=== PATIENT | female | born 1950 | race Two or more races ===

== ENCOUNTER 2020-04-26 13:00 | Emergency (ER) | payer BC, MEDICARE, OTHER ==
[~2020-04-26] VITALS: Ht 162.6 cm; Wt 90.7 kg
[2020-04-26 13:21] VITALS: BP 158/87
[2020-04-26 14:11] LABS: Basophils # (auto) 0.1 10 ^3/uL (0-0.2); Basophils % (auto) 0.9 % (0.0-2.0); Eosinophils # (auto) 0.1 10 ^3/uL (0-0.8); Eosinophils % (auto) 1.1 % (0.0-7.0); Hematocrit 44.9 % (36.0-46.0); Hemoglobin 14.9 g/dL (12.2-16.2); Lymphocytes # (auto) 2.3 10 ^3/uL (0.4-5.4); Lymphocytes % (auto) 23.6 % (10.0-50.0); Mean Corpuscular Hemoglobin 27.5 pg (28.0-32.0); Mean Corpuscular Hgb Conc. 33.1 g/dL (32.0-36.0); Monocytes % (auto) 9.8 % (0.0-12.0); Neutrophils # (auto) 6.4 10 ^3/uL (1.6-8.6); Neutrophils % (auto) 64.6 % (37.0-80.0); Nucleated Red Blood Cells % 0.1 %; Red Blood Cells 5.41 10^6/uL (4.0-5.20); White Blood Cell 9.9 10^3/uL (4.4-10.8)
[2020-04-26 14:28] LABS: Anion Gap 6 (5-15); Blood Urea Nitrogen 24 mg/dL (7-18); Calcium 9.7 mg/dL (8.5-10.1); Carbon Dioxide 30 mmol/L (21-32); Chloride 103 mmol/L (98-107); Glucose 128 mg/dL (74-106); Potassium 4.4 mmol/L (3.5-5.1); Sodium 139 mmol/L (136-145)
[2020-04-26 14:33] LABS: Alanine Aminotransferase 25 U/L (13-56); Alkaline Phosphatase 92 U/L (45-117); Aspartate Aminotransferase 19 U/L (15-37); BUN/Creatinine Ratio 21.8; Bilirubin, Total 0.6 mg/dL (0.2-1.0); GFR African American 63 mL/min; GFR Non-African American 52 mL/min; Total Protein 7.9 g/dL (6.4-8.2)
== END 2020-04-26 14:54 | disposition home or self-care (01) ==
LOC: ER 13:00
DX: R00.0 Tachycardia, unspecified (principal); R42 Dizziness and giddiness; E11.9 Type 2 diabetes mellitus without complications; E78.5 Hyperlipidemia, unspecified; I10 Essential (primary) hypertension; Z90.710 Acquired absence of both cervix and uterus
CPT/HCPCS: 36415; 71046; 80053; 84484; 85025; 93005

== ENCOUNTER 2021-04-07 23:39 | Emergency (ER) | payer OTHER ==
[~2021-04-07] VITALS: Ht 162.6 cm; Wt 89.8 kg
[2021-04-08] MEDS ORDERED: dilTIAZem 25 MG/5 ML VIAL IV ONE (00:45)
[2021-04-08 00:51] LABS: Urine Bacteria FEW /hpf (None Seen); Urine Blood Negative /uL (Negative); Urine Specific Gravity 1.012 (1.001-1.035); Urine WBC 19 /hpf (0 - 5)
[2021-04-08 00:51] LABS: Basophils # (auto) 0.1 10 ^3/uL (0-0.2); Basophils % (auto) 1.2 % (0.0-2.0); Eosinophils # (auto) 0.1 10 ^3/uL (0-0.8); Eosinophils % (auto) 1.4 % (0.0-7.0); Hematocrit 44.6 % (36.0-46.0); Hemoglobin 14.4 g/dL (12.2-16.2); Lymphocytes # (auto) 2.6 10 ^3/uL (0.4-5.4); Lymphocytes % (auto) 26.1 % (10.0-50.0); Mean Corpuscular Hgb Conc. 32.2 g/dL (32.0-36.0); Mean Corpuscular Volume 83.9 fL (80.0-100.0); Monocytes # (auto) 1.1 10 ^3/uL (0-1.3); Monocytes % (auto) 10.7 % (0.0-12.0); Neutrophils % (auto) 60.6 % (37.0-80.0); Red Blood Cells 5.32 10^6/uL (4.0-5.20); Red Cell Distribution Width 16.2 % (11.8-14.3); White Blood Cell 9.9 10^3/uL (4.4-10.8)
[2021-04-08 01:00] LABS: Albumin 3.9 g/dL (3.4-5.0); Calcium 9.4 mg/dL (8.5-10.1); Potassium 4.8 mmol/L (3.5-5.1)
[2021-04-08 01:02] LABS: BUN/Creatinine Ratio 19.6
[2021-04-08 02:00] VITALS: BP 109/59
[2021-04-08 02:51] LABS: Total Protein 7.5 g/dL (6.4-8.2)
[2021-04-08 02:55] LABS: Bilirubin, Total 0.6 mg/dL (0.2-1.0)
== END 2021-04-08 03:06 | disposition home or self-care (01) ==
LOC: ER 04-08 00:04
DX: I48.0 Paroxysmal atrial fibrillation (principal); R00.2 Palpitations; I10 Essential (primary) hypertension; E11.9 Type 2 diabetes mellitus without complications; E78.5 Hyperlipidemia, unspecified; Z90.710 Acquired absence of both cervix and uterus
CPT/HCPCS: 36415; 71045; 80053; 81001; 83880; 84484; 85025; 93005; 96374

== ENCOUNTER 2021-04-18 09:16 | Emergency (ER) | payer OTHER ==
[~2021-04-18] VITALS: Ht 162.6 cm; Wt 88.5 kg
[2021-04-18 10:13] LABS: Basophils # (auto) 0 10 ^3/uL (0-0.2); Basophils % (auto) 0.2 % (0.0-2.0); Eosinophils # (auto) 0.1 10 ^3/uL (0-0.8); Eosinophils % (auto) 1.3 % (0.0-7.0); Hemoglobin 13.4 g/dL (12.2-16.2); Lymphocytes # (auto) 2.1 10 ^3/uL (0.4-5.4); Lymphocytes % (auto) 27.6 % (10.0-50.0); Mean Corpuscular Hemoglobin 27.3 pg (28.0-32.0); Mean Corpuscular Hgb Conc. 32.6 g/dL (32.0-36.0); Mean Corpuscular Volume 83.6 fL (80.0-100.0); Monocytes # (auto) 0.9 10 ^3/uL (0-1.3); Neutrophils # (auto) 4.7 10 ^3/uL (1.6-8.6); Neutrophils % (auto) 59.9 % (37.0-80.0); Red Blood Cells 4.91 10^6/uL (4.0-5.20); Red Cell Distribution Width 15.9 % (11.8-14.3); White Blood Cell 7.8 10^3/uL (4.4-10.8)
[2021-04-18 11:32] LABS: Urine Bacteria NONE SEEN /hpf (None Seen); Urine Blood Negative /uL (Negative); Urine WBC 14 /hpf (0 - 5)
[2021-04-18] MEDS ORDERED: NITR-87 PO (12:00)
[2021-04-18 12:08] LABS: Albumin 3.5 g/dL (3.4-5.0); BUN/Creatinine Ratio 17.5; Calcium 9.1 mg/dL (8.5-10.1)
[2021-04-18 12:28] LABS: Bilirubin, Total 0.6 mg/dL (0.2-1.0); Total Protein 6.8 g/dL (6.4-8.2)
[2021-04-18 12:56] VITALS: BP 110/57
== END 2021-04-18 12:53 | disposition home or self-care (01) ==
LOC: ER 09:16
DX: R00.2 Palpitations (principal); N39.0 Urinary tract infection, site not specified; I10 Essential (primary) hypertension; E11.9 Type 2 diabetes mellitus without complications; E78.5 Hyperlipidemia, unspecified; Z90.710 Acquired absence of both cervix and uterus; Z79.899 Other long term (current) drug therapy
CPT/HCPCS: 36415; 80053; 81001; 84484; 85025; 93005

== ENCOUNTER 2021-07-02 18:17 | Inpatient (IN) | payer OTHER ==
[~2021-07-02] VITALS: Ht 162.6 cm; Wt 90.5 kg
[~2021-07-02 18:17] MED LIST: NITR-87 PO
[2021-07-02] MEDS: METOPROLOL TARTRATE 1MG/1ML-5ML VIAL IV SCH ×3 (19:15→19:25)
[2021-07-02 20:07] LABS: Basophils # (auto) 0.1 10 ^3/uL (0-0.2); Eosinophils # (auto) 0.1 10 ^3/uL (0-0.8); Eosinophils % (auto) 1.2 % (0.0-7.0); Hematocrit 40.5 % (36.0-46.0); Hemoglobin 13.4 g/dL (12.2-16.2); Lymphocytes # (auto) 2.2 10 ^3/uL (0.4-5.4); Lymphocytes % (auto) 18.9 % (10.0-50.0); Mean Corpuscular Volume 81.8 fL (80.0-100.0); Monocytes # (auto) 1.2 10 ^3/uL (0-1.3); Monocytes % (auto) 10.4 % (0.0-12.0); Neutrophils # (auto) 8.1 10 ^3/uL (1.6-8.6); Neutrophils % (auto) 68.5 % (37.0-80.0); Nucleated Red Blood Cells % 0.1 %; Red Blood Cells 4.95 10^6/uL (4.0-5.20); Red Cell Distribution Width 15.6 % (11.8-14.3); White Blood Cell 11.8 10^3/uL (4.4-10.8)
[2021-07-02 20:24] LABS: INR 1.02 (0.9-1.15)
[2021-07-02 20:39] LABS: Albumin 3.6 g/dL (3.4-5.0); Calcium 9.6 mg/dL (8.5-10.1); Magnesium 2.7 mg/dL (1.6-2.6); Potassium 4.8 mmol/L (3.5-5.1)
[2021-07-02 20:44] LABS: BUN/Creatinine Ratio 22.2; Bilirubin, Total 0.7 mg/dL (0.2-1.0); Total Protein 7.1 g/dL (6.4-8.2)
[2021-07-02] MEDS ORDERED: DOCUSATE SOD 100 MG CAP PO PRN (22:00)
[2021-07-02] MEDS ORDERED: cefTRIAXone 1GM/50ML D5W 50 ML IV ONE (22:00)
[2021-07-02] MEDS ORDERED: dilTIAZem 25 MG/5 ML VIAL IV ONE (22:00)
[2021-07-02] MEDS ORDERED: ACETAMINOPHEN 325 MG TAB PO PRN (22:00)
[2021-07-02] MEDS ORDERED: DEXTROSE (50%) 50ML SYRG IV PRN (22:00)
[2021-07-02] MEDS: SODIUM CHLOR 0.9% PF (SALINE LOCK) 10ML VIAL/SYR IV SCH (22:00)
[2021-07-02] MEDS: InsuLIN REG 1unit/0.01ml Soln (100units/ml) SC SCH (22:00)
[2021-07-02] MEDS ORDERED: HYDROcodone-ACET 5/325MG TAB PO PRN (22:00)
[2021-07-02] MEDS: ACCU-CHEK COMFORT CURVE STRIP VI SCH (22:00)
[2021-07-02] MEDS ORDERED: ONDANSETRON HCL 4 MG/2 ML VIAL IV PRN (22:00)
[2021-07-02] MEDS: HEPARIN SODIUM (PORCINE) 5000 UNITS/ML 1ML VIAL SC SCH (22:00)
[2021-07-02] MEDS ORDERED: NITROGLYCERIN 0.4 MG SL TAB SL PRN (22:45)
[2021-07-02] MEDS ORDERED: MORPHINE SULFATE INJECTION 2 MG/ML SYRG IV PRN (22:45)
[2021-07-03 02:35] VITALS: BP 130/56
[2021-07-03 05:19] LABS: Basophils # (auto) 0.1 10 ^3/uL (0-0.2); Basophils % (auto) 0.7 % (0.0-2.0); Eosinophils # (auto) 0.1 10 ^3/uL (0-0.8); Eosinophils % (auto) 1.2 % (0.0-7.0); Hemoglobin 12.7 g/dL (12.2-16.2); Lymphocytes # (auto) 2.5 10 ^3/uL (0.4-5.4); Lymphocytes % (auto) 27.3 % (10.0-50.0); Mean Corpuscular Hemoglobin 27.2 pg (28.0-32.0); Mean Corpuscular Hgb Conc. 33.4 g/dL (32.0-36.0); Mean Corpuscular Volume 81.5 fL (80.0-100.0); Monocytes % (auto) 10.7 % (0.0-12.0); Neutrophils # (auto) 5.4 10 ^3/uL (1.6-8.6); Neutrophils % (auto) 60.1 % (37.0-80.0); Nucleated Red Blood Cells % 0.1 %; Red Blood Cells 4.66 10^6/uL (4.0-5.20); Red Cell Distribution Width 15.6 % (11.8-14.3); White Blood Cell 9.1 10^3/uL (4.4-10.8)
[2021-07-03 05:36] LABS: Albumin 3.4 g/dL (3.4-5.0); BUN/Creatinine Ratio 19.3; Potassium 5.1 mmol/L (3.5-5.1)
[2021-07-03 05:39] LABS: Bilirubin, Total 0.6 mg/dL (0.2-1.0); Total Protein 6.6 g/dL (6.4-8.2)
[2021-07-03] MEDS: SODIUM CHLOR 0.9% PF (SALINE LOCK) 10ML VIAL/SYR IV SCH ×3 (06:29→21:37)
[2021-07-03] MEDS: ACCU-CHEK COMFORT CURVE STRIP VI SCH ×4 (06:29→21:39)
[2021-07-03] MEDS: InsuLIN REG 1unit/0.01ml Soln (100units/ml) SC SCH ×4 (06:30→21:52)
[2021-07-03 08:20] VITALS: BP 140/77
[2021-07-03] MEDS ORDERED: ASPirin 81 mg TAB PO SCH (10:00)
[2021-07-03] MEDS: HEPARIN SODIUM (PORCINE) 5000 UNITS/ML 1ML VIAL SC SCH (10:05)
[2021-07-03] MEDS ORDERED: METF-370 PO (11:00)
[2021-07-03] MEDS ORDERED: CARV25TA55 PO (11:00)
[2021-07-03] MEDS ORDERED: ATOR40TA52 PO (11:00)
[2021-07-03] MEDS ORDERED: GABA100C9 PO (11:00)
[2021-07-03] MEDS ORDERED: EMPA1TAB PO (11:00)
[2021-07-03] MEDS ORDERED: DRON400T PO (11:00)
[2021-07-03] MEDS ORDERED: APIX5TAB PO (11:00)
[2021-07-03] MEDS ORDERED: INSLISPI SC (11:16)
[2021-07-03] MEDS ORDERED: DULA0.5I SC (11:16)
[2021-07-03] MEDS ORDERED: AMLO5CAP40 PO (11:16)
[2021-07-03] MEDS ORDERED: LEVEMIR SC (11:16)
[2021-07-03] MEDS ORDERED: MAGN400T40 PO (11:16)
[2021-07-03] MEDS ORDERED: DIGO0.12 PO (11:16)
[2021-07-03 13:29] VITALS: BP 131/62
[2021-07-03 16:27] VITALS: BP 144/59
[2021-07-03 20:00] VITALS: BP 140/73
[2021-07-03] MEDS: APIXABAN 5 MG TAB PO SCH (21:38)
[2021-07-03] MEDS: CARVEDILOL 12.5 MG TAB PO SCH (21:38)
[2021-07-03] MEDS: DRONEDARONE HCL 400 MG TAB PO SCH (21:52)
[2021-07-03 22:00] VITALS: BP 140/75
[2021-07-03] MEDS ORDERED: INSULIN LANTUS (GLARGINE) 1 /0.01ml (100units/ml) SC SCH (22:00)
[2021-07-03] MEDS ORDERED: ATORVASTATIN 20 MG TAB PO SCH (22:00)
[2021-07-04 05:00] VITALS: BP 139/72
[2021-07-04] MEDS: SODIUM CHLOR 0.9% PF (SALINE LOCK) 10ML VIAL/SYR IV SCH ×2 (06:28→14:00)
[2021-07-04] MEDS: ACCU-CHEK COMFORT CURVE STRIP VI SCH ×3 (06:32→17:47)
[2021-07-04] MEDS: InsuLIN REG 1unit/0.01ml Soln (100units/ml) SC SCH ×3 (06:44→17:00)
[2021-07-04 07:23] LABS: BUN/Creatinine Ratio 16.5; Calcium 9.1 mg/dL (8.5-10.1); Magnesium 2.3 mg/dL (1.6-2.6); Potassium 4.5 mmol/L (3.5-5.1)
[2021-07-04] MEDS ORDERED: metFORMIN HYDROCHLORIDE 500 MG TAB PO SCH (08:00)
[2021-07-04 08:49] VITALS: BP 140/67
[2021-07-04] MEDS: APIXABAN 5 MG TAB PO SCH (09:39)
[2021-07-04] MEDS: CARVEDILOL 12.5 MG TAB PO SCH (09:39)
[2021-07-04] MEDS: DRONEDARONE HCL 400 MG TAB PO SCH (09:43)
[2021-07-04] MEDS ORDERED: dilTIAZem 120MG ER CAP PO SCH (10:00)
[2021-07-04] MEDS ORDERED: BENAZEPRIL HCL 10 MG TAB PO SCH (10:00)
[2021-07-04] MEDS ORDERED: amLODIPine BESYLATE 5 MG TAB PO SCH (10:00)
[2021-07-04] MEDS ORDERED: DIGOXIN 0.125 MG TAB PO SCH (10:00)
[2021-07-04] MEDS ORDERED: PATIENTS OWN MEDICATION PO SCH (10:00)
[2021-07-04 13:00] VITALS: BP 129/58
== END 2021-07-04 18:10 | disposition home or self-care (01) | DRG 310 ==
LOC: ER 18:17 → TELE 22:44 → TELE-WESTW 23:52
PROVIDERS: ADMIT Nurse Practitioner Family; ATTEND Internal Medicine
DX: I48.91 Unspecified atrial fibrillation (principal); I47.1 Supraventricular tachycardia; D72.829 Elevated white blood cell count, unspecified; E11.65 Type 2 diabetes mellitus with hyperglycemia; E78.5 Hyperlipidemia, unspecified; I11.9 Hypertensive heart disease without heart failure; E83.41 Hypermagnesemia; N28.9 Disorder of kidney and ureter, unspecified; Z79.01 Long term (current) use of anticoagulants; Z79.4 Long term (current) use of insulin; Z79.899 Other long term (current) drug therapy; Z80.0 Family history of malignant neoplasm of digestive organs; Z85.038 Personal history of other malignant neoplasm of large intestine; Z90.710 Acquired absence of both cervix and uterus; Z83.3 Family history of diabetes mellitus; Z20.822 Contact with and (suspected) exposure to COVID-19; Z79.84 Long term (current) use of oral hypoglycemic drugs
CPT/HCPCS: 36415; 71045; 80048; 80053; 82962; 83036; 83735; 83880; 84439; 84443; 84484; 85025; 85610; 93005; 93306; 96372; G0378; J1815

== ENCOUNTER 2021-11-16 21:20 | Emergency (ER) | payer OTHER ==
[~2021-11-16] VITALS: Ht 162.6 cm; Wt 82.3 kg
[~2021-11-16 21:20] MED LIST changes: +AMLO5CAP40 PO; +APIX5TAB PO; +ATOR40TA52 PO; +CARV25TA55 PO; +DIGO0.12 PO; +DRON400T PO; +DULA0.5I SC; +EMPA1TAB PO; +GABA100C9 PO; +INSLISPI SC; +LEVEMIR SC; +MAGN400T40 PO; +METF-370 PO
[2021-11-16 22:37] LABS: Basophils # (auto) 0.1 10 ^3/uL (0-0.2); Basophils % (auto) 0.5 % (0.0-2.0); Eosinophils # (auto) 0.1 10 ^3/uL (0-0.8); Eosinophils % (auto) 0.8 % (0.0-7.0); Hematocrit 42.1 % (36.0-46.0); Hemoglobin 13.5 g/dL (12.2-16.2); Lymphocytes # (auto) 2.1 10 ^3/uL (0.4-5.4); Lymphocytes % (auto) 16.4 % (10.0-50.0); Mean Corpuscular Hemoglobin 26.4 pg (28.0-32.0); Mean Corpuscular Volume 82.5 fL (80.0-100.0); Monocytes # (auto) 1.3 10 ^3/uL (0-1.3); Monocytes % (auto) 10.4 % (0.0-12.0); Neutrophils % (auto) 71.9 % (37.0-80.0); Red Blood Cells 5.11 10^6/uL (4.0-5.20); Red Cell Distribution Width 17.2 % (11.8-14.3); White Blood Cell 12.5 10^3/uL (4.4-10.8)
[2021-11-16 22:53] LABS: Albumin 3.5 g/dL (3.4-5.0); Calcium 8.8 mg/dL (8.5-10.1); Potassium 4.9 mmol/L (3.5-5.1)
[2021-11-16 22:57] LABS: BUN/Creatinine Ratio 19.3; Bilirubin, Total 0.8 mg/dL (0.2-1.0); Total Protein 6.9 g/dL (6.4-8.2)
[2021-11-17 02:00] VITALS: BP 130/61
== END 2021-11-17 03:20 | disposition home or self-care (01) ==
LOC: ER 21:20
DX: I48.0 Paroxysmal atrial fibrillation (principal); I10 Essential (primary) hypertension; E11.9 Type 2 diabetes mellitus without complications; E78.5 Hyperlipidemia, unspecified; Z90.710 Acquired absence of both cervix and uterus; Z79.4 Long term (current) use of insulin; Z79.899 Other long term (current) drug therapy; Z20.822 Contact with and (suspected) exposure to COVID-19
CPT/HCPCS: 36415; 71045; 80053; 82962; 83880; 84484; 85025; 93005

== ENCOUNTER 2022-02-25 22:40 | Inpatient (IN) | payer OTHER ==
[~2022-02-25] VITALS: Ht 162.6 cm; Wt 84.6 kg
[2022-02-25] MEDS ORDERED: SODIUM CHLORIDE 0.9% 1,000 ML IV ONE (23:15)
[2022-02-26 01:38] LABS: Basophils # (auto) 0.1 10 ^3/uL (0-0.2); Basophils % (auto) 0.6 % (0.0-2.0); Eosinophils # (auto) 0.1 10 ^3/uL (0-0.8); Eosinophils % (auto) 0.5 % (0.0-7.0); Hematocrit 39.2 % (36.0-46.0); Hemoglobin 13.2 g/dL (12.2-16.2); Lymphocytes # (auto) 1.7 10 ^3/uL (0.4-5.4); Lymphocytes % (auto) 15.2 % (10.0-50.0); Mean Corpuscular Hemoglobin 27.2 pg (28.0-32.0); Mean Corpuscular Hgb Conc. 33.5 g/dL (32.0-36.0); Mean Corpuscular Volume 81.2 fL (80.0-100.0); Monocytes # (auto) 1.4 10 ^3/uL (0-1.3); Monocytes % (auto) 13.1 % (0.0-12.0); Neutrophils # (auto) 7.8 10 ^3/uL (1.6-8.6); Neutrophils % (auto) 70.6 % (37.0-80.0); Nucleated Red Blood Cells % 0.1 %; Red Blood Cells 4.84 10^6/uL (4.0-5.20); Red Cell Distribution Width 16.3 % (11.8-14.3)
[2022-02-26 01:48] LABS: Albumin 3.5 g/dL (3.4-5.0); BUN/Creatinine Ratio 25.3; Calcium 9.1 mg/dL (8.5-10.1); Magnesium 2.5 mg/dL (1.6-2.6); Potassium 4.5 mmol/L (3.5-5.1)
[2022-02-26 01:51] LABS: Bilirubin, Total 0.6 mg/dL (0.2-1.0); Total Protein 6.5 g/dL (6.4-8.2)
[2022-02-26 02:24] LABS: INR 0.97 (0.9-1.15); Partial Thromboplastin Time 26.9 sec (24.6-33.4)
[2022-02-26 03:26] LABS: Urine Bacteria NONE SEEN /hpf (None Seen); Urine Blood Negative /uL (Negative); Urine Hyaline Cast FEW /lpf (0 - 2); Urine Specific Gravity 1.029 (1.001-1.035); Urine WBC 14 /hpf (0 - 5)
[2022-02-26] MEDS ORDERED: ENOXAPARIN SOD 80 MG/0.8ML SYRINGE SC ONE (04:45)
[2022-02-26] MEDS ORDERED: cefTRIAXone 1GM/50ML D5W 50 ML IV ONE (04:45)
[2022-02-26] MEDS ORDERED: MAGNESIUM SULFATE 1GM/100ML 100 ML IV ONE (04:45)
[2022-02-26] MEDS ORDERED: LACTATED RINGER'S 1,000 ML IV ONE (04:45)
[2022-02-26] MEDS ORDERED: LORazepam 0.5 MG TAB PO PRN (05:00)
[2022-02-26] MEDS ORDERED: ZOLPIDEM TARTRATE 5 MG TAB PO PRN (05:00)
[2022-02-26] MEDS ORDERED: NITROGLYCERIN 0.4 MG SL TAB SL PRN (05:00)
[2022-02-26] MEDS ORDERED: MAALOX PLUS or MAALOX 30 ML PO ONE (05:00)
[2022-02-26] MEDS ORDERED: ACETAMINOPHEN 325 MG TAB PO PRN (05:00)
[2022-02-26] MEDS ORDERED: MORPHINE SULFATE 4 MG/ML SYR/VIAL IV PRN (05:00)
[2022-02-26 05:09] LABS: Basophils # (auto) 0 10 ^3/uL (0-0.2); Basophils % (auto) 0.3 % (0.0-2.0); Eosinophils # (auto) 0 10 ^3/uL (0-0.8); Eosinophils % (auto) 0.4 % (0.0-7.0); Hematocrit 38.9 % (36.0-46.0); Hemoglobin 12.9 g/dL (12.2-16.2); Mean Corpuscular Hemoglobin 27.2 pg (28.0-32.0); Mean Corpuscular Hgb Conc. 33.3 g/dL (32.0-36.0); Mean Corpuscular Volume 81.7 fL (80.0-100.0); Monocytes # (auto) 1.3 10 ^3/uL (0-1.3); Monocytes % (auto) 12.7 % (0.0-12.0); Neutrophils # (auto) 6.9 10 ^3/uL (1.6-8.6); Neutrophils % (auto) 67.6 % (37.0-80.0); Red Blood Cells 4.76 10^6/uL (4.0-5.20); Red Cell Distribution Width 16.6 % (11.8-14.3); White Blood Cell 10.3 10^3/uL (4.4-10.8)
[2022-02-26] MEDS ORDERED: DEXTROSE (50%) 50ML SYRG IV PRN (05:15)
[2022-02-26 05:30] LABS: BUN/Creatinine Ratio 27.7; Calcium 8.9 mg/dL (8.5-10.1)
[2022-02-26] MEDS: ACCU-CHEK COMFORT CURVE STRIP VI SCH ×4 (06:48→22:13)
[2022-02-26] MEDS: InsuLIN REG 1unit/0.01ml Soln (100units/ml) SC SCH ×4 (06:49→22:13)
[2022-02-26] MEDS ORDERED: FUROSEMIDE 40 MG/4 ML VIAL IV SCH (10:00)
[2022-02-26] MEDS: LISINOPRIL 5 MG TAB PO SCH (10:00)
[2022-02-26] MEDS ORDERED: ENOXAPARIN SOD 80 MG/0.8ML SYRINGE SC SCH (10:00)
[2022-02-26] MEDS: METOPROLOL TARTRATE 25 MG TAB PO SCH ×2 (10:00→22:12)
[2022-02-26] MEDS: ASPirin 81 mg TAB PO SCH (10:09)
[2022-02-26] MEDS: CLOPIDOGREL BISULFATE 75 MG TAB PO SCH (10:10)
[2022-02-26] MEDS: DOCUSATE SOD 100 MG CAP PO SCH (10:11)
[2022-02-26] MEDS: FUROSEMIDE 20 MG/2 ML VIAL IV SCH (10:11)
[2022-02-26] MEDS: cefTRIAXone 1GM/50ML D5W 50 ML IV SCH (10:12)
[2022-02-26] MEDS: GABAPENTIN 100 MG CAP PO SCH ×2 (14:19→22:10)
[2022-02-26] MEDS ORDERED: APIXABAN 5 MG TAB PO SCH (22:00)
[2022-02-26] MEDS ORDERED: ATORVASTATIN 20 MG TAB PO SCH (22:00)
[2022-02-26] MEDS: CARVEDILOL 12.5 MG TAB PO SCH (22:10)
[2022-02-26] MEDS: ENOXAPARIN SOD 80 MG/0.8ML SYRINGE SC SCH (22:12)
[2022-02-27 06:25] LABS: Eosinophils # (auto) 0.1 10 ^3/uL (0-0.8); Lymphocytes # (auto) 2.3 10 ^3/uL (0.4-5.4); Monocytes # (auto) 1.1 10 ^3/uL (0-1.3); Neutrophils # (auto) 4.7 10 ^3/uL (1.6-8.6)
[2022-02-27] MEDS: GABAPENTIN 100 MG CAP PO SCH ×3 (06:25→22:41)
[2022-02-27] MEDS: InsuLIN REG 1unit/0.01ml Soln (100units/ml) SC SCH ×4 (06:26→22:42)
[2022-02-27] MEDS: ACCU-CHEK COMFORT CURVE STRIP VI SCH ×4 (06:26→22:40)
[2022-02-27 06:28] LABS: Calcium 8.9 mg/dL (8.5-10.1); Potassium 4.9 mmol/L (3.5-5.1)
[2022-02-27 06:29] LABS: Basophils # (auto) 0.1 10 ^3/uL (0-0.2); Basophils % (auto) 0.6 % (0.0-2.0); Eosinophils % (auto) 1.1 % (0.0-7.0); Hematocrit 39.7 % (36.0-46.0); Hemoglobin 13.5 g/dL (12.2-16.2); Lymphocytes % (auto) 27.9 % (10.0-50.0); Mean Corpuscular Hemoglobin 27.7 pg (28.0-32.0); Mean Corpuscular Volume 81.4 fL (80.0-100.0); Monocytes % (auto) 13.8 % (0.0-12.0); Neutrophils % (auto) 56.6 % (37.0-80.0); Red Blood Cells 4.88 10^6/uL (4.0-5.20); Red Cell Distribution Width 16.2 % (11.8-14.3); White Blood Cell 8.2 10^3/uL (4.4-10.8)
[2022-02-27 06:34] LABS: Albumin 3.3 g/dL (3.4-5.0); BUN/Creatinine Ratio 25.3; Bilirubin, Total 0.6 mg/dL (0.2-1.0); Total Protein 6.1 g/dL (6.4-8.2)
[2022-02-27] MEDS: CARVEDILOL 12.5 MG TAB PO SCH ×2 (09:00→22:00)
[2022-02-27] MEDS: DIGOXIN 0.125 MG TAB PO SCH (09:01)
[2022-02-27] MEDS: METOPROLOL TARTRATE 25 MG TAB PO SCH (09:01)
[2022-02-27] MEDS: EMPAGLIFLOZIN 10 MG TAB PO SCH (09:02)
[2022-02-27] MEDS: ATORVASTATIN 20 MG TAB PO SCH (09:16)
[2022-02-27] MEDS: ASPirin 81 mg TAB PO SCH (09:16)
[2022-02-27] MEDS: cefTRIAXone 1GM/50ML D5W 50 ML IV SCH (09:16)
[2022-02-27] MEDS: MAGNESIUM OXIDE 400 MG TAB PO SCH (09:16)
[2022-02-27] MEDS: DOCUSATE SOD 100 MG CAP PO SCH (09:16)
[2022-02-27] MEDS: FUROSEMIDE 20 MG/2 ML VIAL IV SCH (09:16)
[2022-02-27] MEDS: LISINOPRIL 5 MG TAB PO SCH (09:17)
[2022-02-27] MEDS: CLOPIDOGREL BISULFATE 75 MG TAB PO SCH (09:17)
[2022-02-27] MEDS: ENOXAPARIN SOD 80 MG/0.8ML SYRINGE SC SCH ×2 (09:17→22:42)
[2022-02-27] MEDS: INSULIN LANTUS (GLARGINE) 1 /0.01ml (100units/ml) SC SCH (10:10)
[2022-02-27 14:39] VITALS: BP 132/78
[2022-02-27 17:00] VITALS: BP 122/73
[2022-02-27 20:00] VITALS: BP 108/63
[2022-02-27 22:00] VITALS: BP 108/63
[2022-02-28 05:00] VITALS: BP 127/64
[2022-02-28] MEDS: ACCU-CHEK COMFORT CURVE STRIP VI SCH ×2 (06:15→11:30)
[2022-02-28] MEDS: GABAPENTIN 100 MG CAP PO SCH ×2 (06:15→13:46)
[2022-02-28] MEDS: InsuLIN REG 1unit/0.01ml Soln (100units/ml) SC SCH ×2 (06:15→11:30)
[2022-02-28 08:00] VITALS: BP 108/63
[2022-02-28] MEDS: DOCUSATE SOD 100 MG CAP PO SCH (08:45)
[2022-02-28] MEDS: ENOXAPARIN SOD 80 MG/0.8ML SYRINGE SC SCH (08:45)
[2022-02-28] MEDS: cefTRIAXone 1GM/50ML D5W 50 ML IV SCH (08:45)
[2022-02-28] MEDS: ASPirin 81 mg TAB PO SCH (08:45)
[2022-02-28] MEDS: ATORVASTATIN 20 MG TAB PO SCH (08:46)
[2022-02-28] MEDS: EMPAGLIFLOZIN 10 MG TAB PO SCH (08:46)
[2022-02-28] MEDS: FUROSEMIDE 20 MG/2 ML VIAL IV SCH (08:47)
[2022-02-28] MEDS: LISINOPRIL 5 MG TAB PO SCH (08:50)
[2022-02-28] MEDS: CARVEDILOL 12.5 MG TAB PO SCH (08:51)
[2022-02-28] MEDS: MAGNESIUM OXIDE 400 MG TAB PO SCH (08:56)
[2022-02-28 09:00] VITALS: BP 124/70
[2022-02-28] MEDS: INSULIN LANTUS (GLARGINE) 1 /0.01ml (100units/ml) SC SCH (09:06)
[2022-02-28] MEDS: DIGOXIN 0.125 MG TAB PO SCH (10:00)
[2022-02-28] MEDS ORDERED: NITR-87 PO (10:13)
[2022-02-28 13:00] VITALS: BP 120/66
== END 2022-02-28 15:15 | disposition home or self-care (01) | DRG 689 ==
LOC: ER 22:41 → TELE 02-26 04:54 → TELE-EAST 02-27 13:20
PROVIDERS: ADMIT Hospitalist; ATTEND Nurse Practitioner Acute Care
DX: N30.90 Cystitis, unspecified without hematuria (principal); I21.A1 Myocardial infarction type 2; I13.0 Hypertensive heart and chronic kidney disease with heart failure and stage 1 through stage 4 chronic kidney disease, or unspecified chronic kidney disease; J98.11 Atelectasis; E11.22 Type 2 diabetes mellitus with diabetic chronic kidney disease; F17.200 Nicotine dependence, unspecified, uncomplicated; I25.10 Atherosclerotic heart disease of native coronary artery without angina pectoris; Z20.822 Contact with and (suspected) exposure to COVID-19; I48.0 Paroxysmal atrial fibrillation; J44.9 Chronic obstructive pulmonary disease, unspecified; E78.5 Hyperlipidemia, unspecified; E66.9 Obesity, unspecified; N18.9 Chronic kidney disease, unspecified; R56.9 Unspecified convulsions; Z79.01 Long term (current) use of anticoagulants; Z79.4 Long term (current) use of insulin; Z79.84 Long term (current) use of oral hypoglycemic drugs; Z90.710 Acquired absence of both cervix and uterus; Z85.07 Personal history of malignant neoplasm of pancreas; Z85.038 Personal history of other malignant neoplasm of large intestine; Z82.49 Family history of ischemic heart disease and other diseases of the circulatory system; Z83.3 Family history of diabetes mellitus; Z80.0 Family history of malignant neoplasm of digestive organs; Z79.899 Other long term (current) drug therapy; Z68.32 Body mass index [BMI] 32.0-32.9, adult
CPT/HCPCS: 36415; 70450; 71045; 80048; 80053; 81001; 82962; 83735; 83880; 84484; 85025; 85379; 85610; 85730; 87086; 87088; 87426; 93005; 93306; 95819; 96361; 96365; 96372; G0378; J0696; J1815

== ENCOUNTER 2022-04-25 10:55 | Inpatient (IN) | payer OTHER ==
[~2022-04-25] VITALS: Ht 162.6 cm; Wt 83.5 kg
[2022-04-25] MEDS ORDERED: ASPirin 81 mg TAB PO ONE (11:15)
[2022-04-25] MEDS ORDERED: dilTIAZem 25 MG/5 ML VIAL IV ONE (11:15)
[2022-04-25 11:34] LABS: Basophils # (auto) 0.1 10 ^3/uL (0-0.2); Basophils % (auto) 0.6 % (0.0-2.0); Eosinophils # (auto) 0.1 10 ^3/uL (0-0.8); Eosinophils % (auto) 0.7 % (0.0-7.0); Hematocrit 44.2 % (36.0-46.0); Hemoglobin 14.9 g/dL (12.2-16.2); Lymphocytes # (auto) 2.5 10 ^3/uL (0.4-5.4); Lymphocytes % (auto) 26.7 % (10.0-50.0); Mean Corpuscular Hemoglobin 27.6 pg (28.0-32.0); Mean Corpuscular Hgb Conc. 33.6 g/dL (32.0-36.0); Mean Corpuscular Volume 82.1 fL (80.0-100.0); Monocytes % (auto) 10.9 % (0.0-12.0); Neutrophils # (auto) 5.8 10 ^3/uL (1.6-8.6); Neutrophils % (auto) 61.1 % (37.0-80.0); Nucleated Red Blood Cells % 0.1 %; Red Blood Cells 5.39 10^6/uL (4.0-5.20); Red Cell Distribution Width 16.4 % (11.8-14.3); White Blood Cell 9.5 10^3/uL (4.4-10.8)
[2022-04-25 11:47] LABS: Calcium 9.6 mg/dL (8.5-10.1); Magnesium 2.3 mg/dL (1.6-2.6); Potassium 5.1 mmol/L (3.5-5.1)
[2022-04-25 11:50] LABS: BUN/Creatinine Ratio 24.4; Bilirubin, Total 0.5 mg/dL (0.2-1.0); Total Protein 6.8 g/dL (6.4-8.2)
[2022-04-25] MEDS ORDERED: LABETALOL HCL 5 MG/ML 4ML SYRINGE IV ONE (12:00)
[2022-04-25] MEDS ORDERED: NITROGLYCERIN 0.4 MG SL TAB SL PRN (15:30)
[2022-04-25] MEDS ORDERED: ACETAMINOPHEN 325 MG TAB PO PRN (15:30)
[2022-04-25] MEDS ORDERED: MORPHINE SULFATE INJ 2 MG/ml SYRG IV PRN (15:30)
[2022-04-25] MEDS ORDERED: PANTOPRAZOLE 40 MG/10 ML VIAL INJ IV ONE (15:45)
[2022-04-25] MEDS ORDERED: DEXTROSE (50%) 50ML SYRG IV PRN (15:45)
[2022-04-25 16:06] LABS: Cholesterol 151 mg/dL (< 200); HDL Cholesterol 47 mg/dL (40-59); LDL Cholesterol 98 mg/dL (< 100); Triglycerides 120 mg/dL (< 150)
[2022-04-25] MEDS: SODIUM CHLORIDE 0.9% 1,000 ML IV SCH (16:13)
[2022-04-25] MEDS: InsuLIN REG 1unit/0.01ml Soln (100units/ml) SC SCH ×2 (17:00→22:48)
[2022-04-25] MEDS: ACCU-CHEK COMFORT CURVE STRIP VI SCH ×2 (17:17→22:41)
[2022-04-25] MEDS ORDERED: FLECAINIDE ACETATE 50 MG TAB PO SCH (22:00)
[2022-04-25] MEDS: APIXABAN 5 MG TAB PO SCH (22:48)
[2022-04-25] MEDS: GABAPENTIN 100 MG CAP PO SCH (22:54)
[2022-04-25] MEDS: CARVEDILOL 12.5 MG TAB PO SCH (22:55)
[2022-04-26] MEDS ORDERED: FLEC100T PO (01:17)
[2022-04-26 05:00] VITALS: BP 156/62
[2022-04-26] MEDS: GABAPENTIN 100 MG CAP PO SCH ×2 (05:35→13:46)
[2022-04-26 06:35] LABS: Basophils # (auto) 0.1 10 ^3/uL (0-0.2); Basophils % (auto) 0.8 % (0.0-2.0); Eosinophils # (auto) 0.1 10 ^3/uL (0-0.8); Eosinophils % (auto) 0.8 % (0.0-7.0); Hemoglobin 13.3 g/dL (12.2-16.2); Lymphocytes # (auto) 2.8 10 ^3/uL (0.4-5.4); Lymphocytes % (auto) 32.3 % (10.0-50.0); Mean Corpuscular Hemoglobin 27.1 pg (28.0-32.0); Mean Corpuscular Hgb Conc. 33.3 g/dL (32.0-36.0); Mean Corpuscular Volume 81.4 fL (80.0-100.0); Monocytes # (auto) 0.9 10 ^3/uL (0-1.3); Monocytes % (auto) 10.9 % (0.0-12.0); Neutrophils # (auto) 4.7 10 ^3/uL (1.6-8.6); Neutrophils % (auto) 55.2 % (37.0-80.0); Red Blood Cells 4.92 10^6/uL (4.0-5.20); Red Cell Distribution Width 16.5 % (11.8-14.3); White Blood Cell 8.6 10^3/uL (4.4-10.8)
[2022-04-26] MEDS: InsuLIN REG 1unit/0.01ml Soln (100units/ml) SC SCH ×2 (06:52→11:30)
[2022-04-26] MEDS: ACCU-CHEK COMFORT CURVE STRIP VI SCH ×2 (06:52→11:56)
[2022-04-26 06:56] LABS: Albumin 3.5 g/dL (3.4-5.0); Calcium 8.9 mg/dL (8.5-10.1); Potassium 4.6 mmol/L (3.5-5.1)
[2022-04-26 06:59] LABS: BUN/Creatinine Ratio 27.4; Bilirubin, Total 0.6 mg/dL (0.2-1.0); Total Protein 5.8 g/dL (6.4-8.2)
[2022-04-26] MEDS: SODIUM CHLORIDE 0.9% 1,000 ML IV SCH (08:53)
[2022-04-26 09:00] VITALS: BP 145/71
[2022-04-26] MEDS: CARVEDILOL 12.5 MG TAB PO SCH (09:39)
[2022-04-26] MEDS: APIXABAN 5 MG TAB PO SCH (09:39)
[2022-04-26] MEDS ORDERED: DIGOXIN 0.125 MG TAB PO SCH (10:00)
[2022-04-26] MEDS ORDERED: ASPirin 81 mg TAB PO SCH (10:00)
[2022-04-26] MEDS ORDERED: ATORVASTATIN 20 MG TAB PO SCH (10:00)
[2022-04-26] MEDS ORDERED: FLECAINIDE ACETATE 50 MG TAB PO SCH (10:00)
[2022-04-26] MEDS ORDERED: PANTOPRAZOLE 40 MG/10 ML VIAL INJ IV SCH (10:00)
[2022-04-26] MEDS ORDERED: AMLODIPINE BESYLATE BENAZEPRIL PO SCH (10:00)
[2022-04-26] MEDS ORDERED: MAGNESIUM OXIDE 400 MG TAB PO SCH (10:00)
[2022-04-26 13:00] VITALS: BP 138/78
[2022-04-26 16:02] VITALS: BP 156/62
[2022-04-26 16:59] VITALS: BP 145/79
== END 2022-04-26 16:30 | disposition home or self-care (01) | DRG 310 ==
LOC: ER 10:55 → TELE 15:29 → TELE-WESTW 22:31
PROVIDERS: ADMIT Nurse Practitioner Family; ATTEND Internal Medicine
DX: I47.1 Supraventricular tachycardia (principal); I48.91 Unspecified atrial fibrillation; J44.9 Chronic obstructive pulmonary disease, unspecified; E78.5 Hyperlipidemia, unspecified; E66.01 Morbid (severe) obesity due to excess calories; E11.22 Type 2 diabetes mellitus with diabetic chronic kidney disease; N18.9 Chronic kidney disease, unspecified; I12.9 Hypertensive chronic kidney disease with stage 1 through stage 4 chronic kidney disease, or unspecified chronic kidney disease; Z20.822 Contact with and (suspected) exposure to COVID-19; Z79.01 Long term (current) use of anticoagulants; Z79.899 Other long term (current) drug therapy; Z80.0 Family history of malignant neoplasm of digestive organs; Z82.49 Family history of ischemic heart disease and other diseases of the circulatory system; Z85.038 Personal history of other malignant neoplasm of large intestine; Z79.4 Long term (current) use of insulin; Z90.710 Acquired absence of both cervix and uterus; Z68.31 Body mass index [BMI] 31.0-31.9, adult
CPT/HCPCS: 36415; 71045; 80053; 80061; 82962; 83036; 83735; 83880; 84443; 84484; 85025; 85610; 85730; 87426; 93005; 93306; 96374; C9113; G0378; J1815; J3490

== ENCOUNTER 2022-05-12 13:26 | Emergency (ER) | payer OTHER ==
[~2022-05-12] VITALS: Ht 162.6 cm; Wt 79.0 kg
[~2022-05-12 13:26] MED LIST changes: +FLEC100T PO
[2022-05-12 14:01] LABS: Eosinophils # (auto) 0 10 ^3/uL (0-0.8); Eosinophils % (auto) 0.4 % (0.0-7.0); Lymphocytes # (auto) 2.1 10 ^3/uL (0.4-5.4); Monocytes # (auto) 0.9 10 ^3/uL (0-1.3)
[2022-05-12 14:03] LABS: Basophils # (auto) 0 10 ^3/uL (0-0.2); Basophils % (auto) 0.5 % (0.0-2.0); Hematocrit 42.8 % (36.0-46.0); Hemoglobin 14.1 g/dL (12.2-16.2); Lymphocytes % (auto) 24.2 % (10.0-50.0); Mean Corpuscular Hgb Conc. 32.8 g/dL (32.0-36.0); Mean Corpuscular Volume 82.4 fL (80.0-100.0); Monocytes % (auto) 10.3 % (0.0-12.0); Neutrophils # (auto) 5.7 10 ^3/uL (1.6-8.6); Neutrophils % (auto) 64.6 % (37.0-80.0); Nucleated Red Blood Cells % 0.2 %; Red Cell Distribution Width 16.7 % (11.8-14.3); White Blood Cell 8.9 10^3/uL (4.4-10.8)
[2022-05-12] MEDS ORDERED: dilTIAZem 25 MG/5 ML VIAL IV ONE (14:15)
[2022-05-12 14:17] LABS: INR 1.03 (0.9-1.15); Partial Thromboplastin Time 28.5 sec (24.6-33.4)
[2022-05-12 14:23] LABS: Albumin 3.5 g/dL (3.4-5.0); Calcium 8.9 mg/dL (8.5-10.1); Potassium 5.3 mmol/L (3.5-5.1)
[2022-05-12 14:27] LABS: BUN/Creatinine Ratio 21.4; Bilirubin, Total 0.5 mg/dL (0.2-1.0); Total Protein 6.4 g/dL (6.4-8.2)
[2022-05-12] MEDS ORDERED: ADENOSINE 6 MG/2 ML INJ IV ONE (15:15)
[2022-05-12] MEDS ORDERED: DILT40TA PO (16:52)
[2022-05-12 18:00] VITALS: BP 113/53
== END 2022-05-12 18:57 | disposition home or self-care (01) ==
LOC: ER 13:26
DX: I48.20 Chronic atrial fibrillation, unspecified (principal); R42 Dizziness and giddiness; R00.2 Palpitations; R07.89 Other chest pain; J44.9 Chronic obstructive pulmonary disease, unspecified; E11.9 Type 2 diabetes mellitus without complications; E78.5 Hyperlipidemia, unspecified; I10 Essential (primary) hypertension; Z90.710 Acquired absence of both cervix and uterus; Z88.6 Allergy status to analgesic agent
CPT/HCPCS: 36415; 71045; 80053; 83880; 84484; 85025; 85610; 85730; 93005; 96374

== ENCOUNTER 2022-08-20 07:21 | Day surgery (SDC) | payer OTHER ==
[~2022-08-20] VITALS: Ht 162.6 cm; Wt 83.9 kg
[~2022-08-20 07:21] MED LIST changes: -AMLO5CAP40 PO; +BENA-19 PO; -DIGO0.12 PO; -FLEC100T PO; +FURO20TA3 PO; +GABA-1308 PO; -GABA100C9 PO; -NITR-87 PO
[2022-08-20] MEDS ORDERED: fentaNYL CITRATE 100 MCG/2 ML VL ONE (09:59)
[2022-08-20] MEDS ORDERED: MIDAZOLAM HCL 2MG/2ML 2ml VIAL (1mg/ml) ONE (09:59)
[2022-08-20] MEDS ORDERED: VANCOMYCIN 1GM/250ML 250 ML IV ONE (10:00)
[2022-08-20] MEDS ORDERED: VANCOMYCIN HCL 1000 MG VL ONE (10:01)
[2022-08-20] MEDS ORDERED: LIDOCAINE 2%HCL (LOCAL ANESTH.) INJ 20ML MDV ONE (10:04)
== END 2022-08-20 11:32 | disposition home or self-care (01) ==
LOC: CATH 07:21
PROVIDERS: ATTEND Specialist
DX: I48.0 Paroxysmal atrial fibrillation (principal); R00.2 Palpitations; N17.9 Acute kidney failure, unspecified; R42 Dizziness and giddiness
CPT/HCPCS: 33285; 36415; 84132; C1764; J3370; 99152; J2250

== ENCOUNTER 2022-09-27 12:52 | Inpatient (IN) | payer OTHER ==
[~2022-09-27] VITALS: Ht 162.6 cm; Wt 84.5 kg
[2022-09-27 13:20] VITALS: PULSE 39; RESP 14; O2SAT 99
[2022-09-27 13:40] LABS: Basophils # (auto) 0.1 10 ^3/uL (0-0.2); Basophils % (auto) 1.1 % (0.0-2.0); Eosinophils # (auto) 0.1 10 ^3/uL (0-0.8); Eosinophils % (auto) 0.7 % (0.0-7.0); Hematocrit 42.9 % (36.0-46.0); Hemoglobin 13.7 g/dL (12.2-16.2); Lymphocytes # (auto) 2.9 10 ^3/uL (0.4-5.4); Lymphocytes % (auto) 30.1 % (10.0-50.0); Mean Corpuscular Hemoglobin 27.6 pg (28.0-32.0); Mean Corpuscular Volume 86.2 fL (80.0-100.0); Neutrophils # (auto) 5.6 10 ^3/uL (1.6-8.6); Neutrophils % (auto) 58.1 % (37.0-80.0); Nucleated Red Blood Cells % 0.2 %; Red Blood Cells 4.97 10^6/uL (4.0-5.20); White Blood Cell 9.6 10^3/uL (4.4-10.8)
[2022-09-27 13:57] LABS: Potassium 4.5 mmol/L (3.5-5.1)
[2022-09-27 14:04] LABS: Albumin 3.6 g/dL (3.4-5.0); BUN/Creatinine Ratio 19.7 (10.0-20.0); Bilirubin, Total 0.5 mg/dL (0.2-1.0); Calcium 8.7 mg/dL (8.5-10.1); Magnesium 2.5 mg/dL (1.6-2.6); Total Protein 6.4 g/dL (6.4-8.2)
[2022-09-27 14:08] LABS: INR 1.08 (0.9-1.15); Partial Thromboplastin Time 27.1 SEC (24.5-34.5); Prothrombin Time 11.3 sec (9.3-11.8)
[2022-09-27] MEDS ORDERED: GLUCAGON EMERG KIT 1mg/1ml IV ONE ×2 (14:15→14:30)
[2022-09-27] MEDS ORDERED: ONDANSETRON HCL 4 MG/2 ML VIAL IV ONE (14:15)
[2022-09-27] MEDS ORDERED: ONDANSETRON HCL 4 MG/2 ML VIAL IV PRN (17:45)
[2022-09-27] MEDS ORDERED: DOCUSATE SOD 100 MG CAP PO PRN (17:45)
[2022-09-27] MEDS ORDERED: MORPHINE SULFATE INJ 2 MG/ml SYRG IV PRN (17:45)
[2022-09-27] MEDS ORDERED: DOPamine 1600MCG/ML D5W 250 ML IV ONE (17:45)
[2022-09-27] MEDS ORDERED: IPRATROPIUM BROM 0.5 MG/2.5ML INH SOL NEB PRN (18:00)
[2022-09-27] MEDS ORDERED: SODIUM CHLORIDE 0.9% 1,000 ML IV ONE (18:00)
[2022-09-27] MEDS ORDERED: DEXTROSE (50%) 50ML SYRG IV PRN (18:00)
[2022-09-27] MEDS ORDERED: ALBUTEROL SULF 2.5 MG/0.5ML(0.5%) NEB SOLN NEB PRN (18:00)
[2022-09-27] MEDS ORDERED: ATROPINE SULFATE 0.4 MG/1 ML VIAL IV PRN (18:30)
[2022-09-27] MEDS: SODIUM CHLORIDE 0.9% 1,000 ML IV SCH (18:54)
[2022-09-27 20:00] VITALS: PULSE 64; RESP 13; O2SAT 93
[2022-09-27] MEDS: ISOPROTERENOL HCL INJECTION 1 MG in D5W 5% 250 ML IV SCH (20:01)
[2022-09-27 20:29] VITALS: BP 142/61; PULSE 59; RESP 16; TEMP 97.4; O2SAT 95
[2022-09-27 21:16] LABS: Magnesium 2.4 mg/dL (1.6-2.6); Phosphorus 4.6 mg/dL (2.5-4.90)
[2022-09-27] MEDS: GABAPENTIN 100 MG CAP PO SCH (21:49)
[2022-09-27] MEDS: ATORVASTATIN 20 MG TAB PO SCH (21:49)
[2022-09-27] MEDS: ACCU-CHEK COMFORT CURVE STRIP VI SCH (21:49)
[2022-09-27] MEDS: APIXABAN 5 MG TAB PO SCH (21:49)
[2022-09-27] MEDS: InsuLIN REG 1unit/0.01ml Soln (100units/ml) SC SCH (21:52)
[2022-09-28] VITALS (17 sets, daily range): BP systolic 138–169; BP diastolic 66–85; PULSE 57–68; RESP 10–18; TEMP 97.5–98.1; O2SAT 92–98
[2022-09-28] MEDS: ISOPROTERENOL HCL INJECTION 1 MG in D5W 5% 250 ML IV SCH ×2 (04:41→11:10)
[2022-09-28 05:29] LABS: Albumin 3.7 g/dL (3.4-5.0); BUN/Creatinine Ratio 21.9 (10.0-20.0); Calcium 8.5 mg/dL (8.5-10.1); Potassium 4.2 mmol/L (3.5-5.1)
[2022-09-28 05:32] LABS: Bilirubin, Total 0.7 mg/dL (0.2-1.0); Total Protein 6.9 g/dL (6.4-8.2)
[2022-09-28 06:07] LABS: Basophils # (auto) 0.1 10 ^3/uL (0-0.2); Basophils % (auto) 0.6 % (0.0-2.0); Eosinophils # (auto) 0.1 10 ^3/uL (0-0.8); Hemoglobin 13.4 g/dL (12.2-16.2); Lymphocytes # (auto) 2.5 10 ^3/uL (0.4-5.4); Lymphocytes % (auto) 30.8 % (10.0-50.0); Mean Corpuscular Hemoglobin 27.9 pg (28.0-32.0); Mean Corpuscular Hgb Conc. 33.4 g/dL (32.0-36.0); Mean Corpuscular Volume 83.6 fL (80.0-100.0); Monocytes # (auto) 0.9 10 ^3/uL (0-1.3); Monocytes % (auto) 11.2 % (0.0-12.0); Neutrophils # (auto) 4.6 10 ^3/uL (1.6-8.6); Neutrophils % (auto) 56.4 % (37.0-80.0); Nucleated Red Blood Cells % 0.1 %; Red Blood Cells 4.79 10^6/uL (4.0-5.20); Red Cell Distribution Width 15.9 % (11.8-14.3); White Blood Cell 8.1 10^3/uL (4.4-10.8)
[2022-09-28] MEDS: InsuLIN REG 1unit/0.01ml Soln (100units/ml) SC SCH ×4 (06:33→21:54)
[2022-09-28] MEDS: ACCU-CHEK COMFORT CURVE STRIP VI SCH ×4 (06:33→21:51)
[2022-09-28] MEDS: GABAPENTIN 100 MG CAP PO SCH ×3 (06:41→21:50)
[2022-09-28] MEDS ORDERED: amLODIPine BESYLATE 5 MG TAB PO ONE ×2 (07:00→16:45)
[2022-09-28] MEDS: SODIUM CHLORIDE 0.9% 1,000 ML IV SCH (08:24)
[2022-09-28] MEDS ORDERED: FUROSEMIDE 20 MG TAB PO SCH (10:00)
[2022-09-28] MEDS ORDERED: BENAZEPRIL HCL 10 MG TAB PO SCH (10:00)
[2022-09-28] MEDS: MAGNESIUM OXIDE 400 MG TAB PO SCH ×2 (11:11→21:49)
[2022-09-28] MEDS: APIXABAN 5 MG TAB PO SCH ×2 (11:11→21:50)
[2022-09-28] MEDS ORDERED: ACETAMINOPHEN 325 MG TAB PO PRN (19:30)
[2022-09-28] MEDS: amLODIPine BESYLATE 5 MG TAB PO SCH (21:50)
[2022-09-28] MEDS: ATORVASTATIN 20 MG TAB PO SCH (21:50)
[2022-09-29] VITALS (25 sets, daily range): BP systolic 82–161; BP diastolic 52–98; PULSE 56–155; RESP 10–20; TEMP 97.2–97.8; O2SAT 93–98
[2022-09-29] MEDS ORDERED: CARVEDILOL 12.5 MG TAB PO ONE (05:30)
[2022-09-29] MEDS: GABAPENTIN 100 MG CAP PO SCH ×3 (05:56→21:27)
[2022-09-29 05:57] LABS: Basophils # (auto) 0.1 10 ^3/uL (0-0.2); Basophils % (auto) 0.9 % (0.0-2.0); Eosinophils # (auto) 0.1 10 ^3/uL (0-0.8); Eosinophils % (auto) 1.5 % (0.0-7.0); Hematocrit 42.6 % (36.0-46.0); Hemoglobin 14.3 g/dL (12.2-16.2); Lymphocytes # (auto) 2.3 10 ^3/uL (0.4-5.4); Lymphocytes % (auto) 34.1 % (10.0-50.0); Mean Corpuscular Hgb Conc. 33.6 g/dL (32.0-36.0); Mean Corpuscular Volume 83.4 fL (80.0-100.0); Monocytes # (auto) 0.8 10 ^3/uL (0-1.3); Monocytes % (auto) 12.2 % (0.0-12.0); Neutrophils # (auto) 3.5 10 ^3/uL (1.6-8.6); Neutrophils % (auto) 51.3 % (37.0-80.0); Nucleated Red Blood Cells % 0.1 %; Red Blood Cells 5.11 10^6/uL (4.0-5.20); Red Cell Distribution Width 15.8 % (11.8-14.3); White Blood Cell 6.7 10^3/uL (4.4-10.8)
[2022-09-29 06:15] LABS: Potassium 4.7 mmol/L (3.5-5.1)
[2022-09-29 06:23] LABS: Albumin 3.7 g/dL (3.4-5.0); BUN/Creatinine Ratio 24.4 (10.0-20.0); Bilirubin, Total 0.8 mg/dL (0.2-1.0); Calcium 9.2 mg/dL (8.5-10.1); Total Protein 7.1 g/dL (6.4-8.2)
[2022-09-29] MEDS: ACCU-CHEK COMFORT CURVE STRIP VI SCH ×4 (06:33→22:00)
[2022-09-29] MEDS: InsuLIN REG 1unit/0.01ml Soln (100units/ml) SC SCH ×4 (06:35→22:16)
[2022-09-29] MEDS: APIXABAN 5 MG TAB PO SCH ×2 (08:47→21:24)
[2022-09-29] MEDS: MAGNESIUM OXIDE 400 MG TAB PO SCH ×2 (08:47→21:27)
[2022-09-29] MEDS: PANTOPRAZOLE 40 MG TAB PO SCH (08:47)
[2022-09-29] MEDS: CARVEDILOL 12.5 MG TAB PO SCH ×2 (08:47→21:24)
[2022-09-29] MEDS: amLODIPine BESYLATE 5 MG TAB PO SCH (10:00)
[2022-09-29] MEDS ORDERED: SODIUM CHLORIDE 0.9% 2,550 ML IV ONE (10:30)
[2022-09-29 10:46] LABS: Magnesium 2.6 mg/dL (1.6-2.6); Phosphorus 3.8 mg/dL (2.5-4.90)
[2022-09-29] MEDS ORDERED: ADENOSINE 6 MG/2 ML INJ IV ONE ×2 (11:45)
[2022-09-29] MEDS: DRONEDARONE HCL 400 MG TAB PO SCH ×2 (12:49→22:00)
[2022-09-29] MEDS: dilTIAZem HCL 60 MG TAB GT SCH ×3 (12:50→22:03)
[2022-09-29] MEDS: ATORVASTATIN 20 MG TAB PO SCH (21:27)
[2022-09-30] VITALS (24 sets, daily range): BP systolic 116–149; BP diastolic 55–71; PULSE 49–66; RESP 9–18; TEMP 97.6–98.7; O2SAT 92–100
[2022-09-30 06:30] LABS: Potassium 4.7 mmol/L (3.5-5.1)
[2022-09-30 06:32] LABS: BUN/Creatinine Ratio 22.7 (10.0-20.0); Calcium 9.1 mg/dL (8.5-10.1)
[2022-09-30 06:37] LABS: Basophils # (auto) 0 10 ^3/uL (0-0.2); Basophils % (auto) 0.6 % (0.0-2.0); Eosinophils # (auto) 0.1 10 ^3/uL (0-0.8); Eosinophils % (auto) 1.4 % (0.0-7.0); Hematocrit 42.4 % (36.0-46.0); Hemoglobin 14.2 g/dL (12.2-16.2); Lymphocytes # (auto) 2.2 10 ^3/uL (0.4-5.4); Lymphocytes % (auto) 29.7 % (10.0-50.0); Mean Corpuscular Hgb Conc. 33.5 g/dL (32.0-36.0); Mean Corpuscular Volume 83.7 fL (80.0-100.0); Monocytes # (auto) 0.8 10 ^3/uL (0-1.3); Monocytes % (auto) 11.4 % (0.0-12.0); Neutrophils # (auto) 4.2 10 ^3/uL (1.6-8.6); Neutrophils % (auto) 56.9 % (37.0-80.0); Nucleated Red Blood Cells % 0.2 %; Red Blood Cells 5.07 10^6/uL (4.0-5.20); White Blood Cell 7.4 10^3/uL (4.4-10.8)
[2022-09-30] MEDS: GABAPENTIN 100 MG CAP PO SCH ×3 (06:45→21:36)
[2022-09-30] MEDS: dilTIAZem HCL 60 MG TAB GT SCH ×3 (06:45→21:33)
[2022-09-30] MEDS: InsuLIN REG 1unit/0.01ml Soln (100units/ml) SC SCH ×4 (07:00→21:37)
[2022-09-30] MEDS: ACCU-CHEK COMFORT CURVE STRIP VI SCH ×4 (07:17→21:36)
[2022-09-30] MEDS: DRONEDARONE HCL 400 MG TAB PO SCH ×2 (09:41→21:38)
[2022-09-30] MEDS: CARVEDILOL 12.5 MG TAB PO SCH ×2 (09:41→21:34)
[2022-09-30] MEDS: APIXABAN 5 MG TAB PO SCH ×2 (09:41→21:34)
[2022-09-30] MEDS: PANTOPRAZOLE 40 MG TAB PO SCH (09:42)
[2022-09-30] MEDS: MAGNESIUM OXIDE 400 MG TAB PO SCH ×2 (09:42→21:35)
[2022-09-30] MEDS: ATORVASTATIN 20 MG TAB PO SCH (21:35)
[2022-10-01 05:44] VITALS: BP 134/63; PULSE 59; RESP 18; TEMP 97.7; O2SAT 95
[2022-10-01] MEDS: GABAPENTIN 100 MG CAP PO SCH ×2 (05:58→13:26)
[2022-10-01] MEDS: dilTIAZem HCL 60 MG TAB GT SCH (06:01)
[2022-10-01] MEDS: ACCU-CHEK COMFORT CURVE STRIP VI SCH ×3 (06:01→17:00)
[2022-10-01] MEDS: InsuLIN REG 1unit/0.01ml Soln (100units/ml) SC SCH ×3 (06:03→17:00)
[2022-10-01 07:16] LABS: Basophils # (auto) 0 10 ^3/uL (0-0.2); Basophils % (auto) 0.6 % (0.0-2.0); Eosinophils # (auto) 0.1 10 ^3/uL (0-0.8); Eosinophils % (auto) 1.2 % (0.0-7.0); Hematocrit 42.5 % (36.0-46.0); Hemoglobin 14.4 g/dL (12.2-16.2); Lymphocytes # (auto) 2.3 10 ^3/uL (0.4-5.4); Mean Corpuscular Hgb Conc. 33.8 g/dL (32.0-36.0); Mean Corpuscular Volume 82.9 fL (80.0-100.0); Monocytes % (auto) 11.2 % (0.0-12.0); Neutrophils # (auto) 5.4 10 ^3/uL (1.6-8.6); Nucleated Red Blood Cells % 0.1 %; Red Blood Cells 5.13 10^6/uL (4.0-5.20); Red Cell Distribution Width 15.6 % (11.8-14.3); White Blood Cell 8.9 10^3/uL (4.4-10.8)
[2022-10-01 07:21] LABS: BUN/Creatinine Ratio 19.8 (10.0-20.0); Magnesium 2.4 mg/dL (1.6-2.6); Potassium 4.2 mmol/L (3.5-5.1)
[2022-10-01 08:00] VITALS: BP 134/58; PULSE 59; PULSE 60; PULSE 62; RESP 18; RESP 20; TEMP 97.5; O2SAT 97
[2022-10-01] MEDS: CARVEDILOL 12.5 MG TAB PO SCH (09:40)
[2022-10-01] MEDS: DRONEDARONE HCL 400 MG TAB PO SCH (09:41)
[2022-10-01] MEDS: PANTOPRAZOLE 40 MG TAB PO SCH (09:41)
[2022-10-01] MEDS: APIXABAN 5 MG TAB PO SCH (09:41)
[2022-10-01] MEDS: MAGNESIUM OXIDE 400 MG TAB PO SCH (09:41)
[2022-10-01] MEDS ORDERED: dilTIAZem 120MG ER CAP PO SCH (10:00)
[2022-10-01 11:00] VITALS: O2SAT 96
[2022-10-01 12:00] VITALS: BP_SYST 120; BP_SYST 171; BP_DIAS 64; BP_DIAS 79; PULSE 58; PULSE 82; RESP 18; RESP 20; TEMP 97.9; TEMP 98.3; O2SAT 94; O2SAT 96
[2022-10-01] MEDS ORDERED: DILT120C54 PO ×2 (13:41)
[2022-10-01] MEDS ORDERED: CAR125T OR (13:41)
== END 2022-10-01 17:50 | disposition home or self-care (01) | DRG 918 ==
LOC: ER 12:52 → TELE 17:47 → DOU IN ICU 09-28 10:42 → TELE-WESTW 09-30 17:17
PROVIDERS: ADMIT Nurse Practitioner Acute Care; ATTEND Nurse Practitioner Acute Care
DX: T44.7X1A Poisoning by beta-adrenoreceptor antagonists, accidental (unintentional), initial encounter (principal); R00.1 Bradycardia, unspecified; I95.9 Hypotension, unspecified; J44.9 Chronic obstructive pulmonary disease, unspecified; I12.9 Hypertensive chronic kidney disease with stage 1 through stage 4 chronic kidney disease, or unspecified chronic kidney disease; E11.22 Type 2 diabetes mellitus with diabetic chronic kidney disease; E78.5 Hyperlipidemia, unspecified; N18.9 Chronic kidney disease, unspecified; I48.0 Paroxysmal atrial fibrillation; Z80.0 Family history of malignant neoplasm of digestive organs; Z82.49 Family history of ischemic heart disease and other diseases of the circulatory system; Z83.3 Family history of diabetes mellitus; Z79.01 Long term (current) use of anticoagulants; Z85.038 Personal history of other malignant neoplasm of large intestine; Z79.899 Other long term (current) drug therapy; Z79.4 Long term (current) use of insulin; Z79.84 Long term (current) use of oral hypoglycemic drugs; Z90.710 Acquired absence of both cervix and uterus; Y92.89 Other specified places as the place of occurrence of the external cause
CPT/HCPCS: 36415; 71045; 80048; 80053; 80061; 82306; 82607; 82962; 83036; 83735; 83880; 84100; 84439; 84443; 84479; 84484; 85025; 85610; 85730; 87081; 93005; 93306; 96374; 96375; 96376; 99291; G0378; J1815; J2405; J7060

== ENCOUNTER 2022-10-02 19:22 | Inpatient (IN) | payer OTHER ==
[~2022-10-02] VITALS: Ht 162.6 cm; Wt 87.3 kg
[~2022-10-02 19:22] MED LIST changes: +CAR125T OR; -CARV25TA55 PO; +DILT120C54 PO; -DRON400T PO
[2022-10-02 20:10] VITALS: PULSE 153; RESP 17; O2SAT 95
[2022-10-02 20:15] LABS: Basophils # (auto) 0.2 10 ^3/uL (0-0.2); Basophils % (auto) 1.6 % (0.0-2.0); Eosinophils # (auto) 0.1 10 ^3/uL (0-0.8); Eosinophils % (auto) 0.9 % (0.0-7.0); Hematocrit 43.8 % (36.0-46.0); Hemoglobin 14.5 g/dL (12.2-16.2); Lymphocytes # (auto) 2.5 10 ^3/uL (0.4-5.4); Lymphocytes % (auto) 24.4 % (10.0-50.0); Mean Corpuscular Hemoglobin 27.8 pg (28.0-32.0); Mean Corpuscular Hgb Conc. 33.2 g/dL (32.0-36.0); Mean Corpuscular Volume 83.9 fL (80.0-100.0); Monocytes # (auto) 1.2 10 ^3/uL (0-1.3); Monocytes % (auto) 11.4 % (0.0-12.0); Neutrophils # (auto) 6.3 10 ^3/uL (1.6-8.6); Neutrophils % (auto) 61.7 % (37.0-80.0); Nucleated Red Blood Cells % 0.1 %; Red Blood Cells 5.22 10^6/uL (4.0-5.20); Red Cell Distribution Width 15.7 % (11.8-14.3); White Blood Cell 10.2 10^3/uL (4.4-10.8)
[2022-10-02] MEDS ORDERED: ADENOSINE 6 MG/2 ML INJ IV ONE ×4 (20:25→20:33)
[2022-10-02 20:30] LABS: Albumin 3.9 g/dL (3.4-5.0); BUN/Creatinine Ratio 20.5 (10.0-20.0); Magnesium 2.4 mg/dL (1.6-2.6); Potassium 4.4 mmol/L (3.5-5.1)
[2022-10-02 20:32] LABS: Bilirubin, Total 0.6 mg/dL (0.2-1.0); Partial Thromboplastin Time 28.8 SEC (24.5-34.5); Prothrombin Time 10.5 sec (9.3-11.8); Total Protein 6.9 g/dL (6.4-8.2)
[2022-10-02] MEDS ORDERED: MIDAZOLAM HCL 2MG/2ML 2ml VIAL (1mg/ml) ONE (20:35)
[2022-10-02] MEDS ORDERED: MIDAZOLAM HCL 5 MG/ML-1ML VIAL IV ONE (20:37)
[2022-10-02] MEDS ORDERED: dilTIAZem 25 MG/5 ML VIAL IV ONE (20:41)
[2022-10-03 02:28] LABS: Urine Bacteria NONE SEEN /hpf (None Seen); Urine Blood Negative /uL (Negative); Urine Clarity Clear (Clear); Urine Color Colorless (Yellow); Urine Protein, UAD Negative (Negative); Urine Specific Gravity 1.023 (1.001-1.035); Urine Urobilinogen Normal (Negative); Urine WBC 1 /hpf (0 - 5); Urine pH 5.5 (5.0-8.0)
[2022-10-03] MEDS ORDERED: MORPHINE SULFATE INJ 2 MG/ml SYRG IV PRN (03:30)
[2022-10-03] MEDS ORDERED: DEXTROSE (50%) 50ML SYRG IV PRN (03:30)
[2022-10-03] MEDS ORDERED: NITROGLYCERIN 0.4 MG SL TAB SL PRN (03:30)
[2022-10-03] MEDS ORDERED: ONDANSETRON HCL 4 MG/2 ML VIAL IV PRN (03:30)
[2022-10-03] MEDS: ACCU-CHEK COMFORT CURVE STRIP VI SCH ×4 (06:30→22:59)
[2022-10-03] MEDS: InsuLIN REG 1unit/0.01ml Soln (100units/ml) SC SCH ×4 (06:31→22:59)
[2022-10-03 07:45] VITALS: PULSE 61; RESP 13; O2SAT 98
[2022-10-03] MEDS: ASPirin 81 mg TAB PO SCH (09:52)
[2022-10-03] MEDS: PANTOPRAZOLE 40 MG TAB PO SCH (09:52)
[2022-10-03] MEDS: CARVEDILOL 12.5 MG TAB PO SCH ×2 (09:52→22:51)
[2022-10-03] MEDS ORDERED: dilTIAZem 120MG ER CAP PO SCH (10:00)
[2022-10-03] MEDS ORDERED: FUROSEMIDE 20 MG TAB PO SCH (10:00)
[2022-10-03] MEDS ORDERED: APIXABAN 5 MG TAB PO SCH (10:00)
[2022-10-03] MEDS ORDERED: LOSARTAN POTASSIUM 25 MG TAB PO ONE (13:45)
[2022-10-03 19:30] VITALS: PULSE 63; RESP 13; O2SAT 98
[2022-10-03] MEDS ORDERED: SODIUM CHLORIDE 0.9% 1,000 ML IV SCH (21:15)
[2022-10-03 22:00] VITALS: BP 134/69; PULSE 64; RESP 18; TEMP 98.3; O2SAT 95
[2022-10-03] MEDS ORDERED: RIVAROXABAN 10 MG TAB PO SCH (22:00)
[2022-10-03] MEDS ORDERED: ATORVASTATIN 20 MG TAB PO SCH (22:00)
[2022-10-03] MEDS: ATORVASTATIN 20 MG TAB PO SCH (22:49)
[2022-10-03] MEDS: GABAPENTIN 100 MG CAP PO SCH (22:50)
[2022-10-03] MEDS: APIXABAN 5 MG TAB PO SCH (22:50)
[2022-10-04] VITALS (8 sets, daily range): BP systolic 115–148; BP diastolic 65–75; PULSE 58–148; RESP 16–18; TEMP 97.4–98.8; O2SAT 93–97
[2022-10-04] MEDS: GABAPENTIN 100 MG CAP PO SCH ×3 (06:03→21:50)
[2022-10-04] MEDS: ACCU-CHEK COMFORT CURVE STRIP VI SCH ×4 (06:03→23:25)
[2022-10-04] MEDS: InsuLIN REG 1unit/0.01ml Soln (100units/ml) SC SCH ×4 (06:06→23:27)
[2022-10-04 07:10] LABS: Calcium 9.1 mg/dL (8.5-10.1); Potassium 4.1 mmol/L (3.5-5.1)
[2022-10-04] MEDS: LOSARTAN POTASSIUM 25 MG TAB PO SCH (09:31)
[2022-10-04] MEDS: APIXABAN 5 MG TAB PO SCH (09:31)
[2022-10-04] MEDS: ASPirin 81 mg TAB PO SCH (09:31)
[2022-10-04] MEDS: CARVEDILOL 12.5 MG TAB PO SCH ×2 (09:32→21:49)
[2022-10-04] MEDS: PANTOPRAZOLE 40 MG TAB PO SCH (09:32)
[2022-10-04 11:15] LABS: Basophils # (auto) 0 10 ^3/uL (0-0.2); Basophils % (auto) 0.5 % (0.0-2.0); Eosinophils # (auto) 0.1 10 ^3/uL (0-0.8); Eosinophils % (auto) 1.2 % (0.0-7.0); Hematocrit 43.4 % (36.0-46.0); Hemoglobin 13.9 g/dL (12.2-16.2); Lymphocytes % (auto) 24.6 % (10.0-50.0); Mean Corpuscular Hemoglobin 27.9 pg (28.0-32.0); Monocytes # (auto) 0.9 10 ^3/uL (0-1.3); Monocytes % (auto) 10.8 % (0.0-12.0); Neutrophils # (auto) 5.1 10 ^3/uL (1.6-8.6); Neutrophils % (auto) 62.9 % (37.0-80.0); Nucleated Red Blood Cells % 0.1 %; Red Blood Cells 4.99 10^6/uL (4.0-5.20); Red Cell Distribution Width 16.3 % (11.8-14.3); White Blood Cell 8.1 10^3/uL (4.4-10.8)
[2022-10-04] MEDS ORDERED: DEXTROSE (50%) 50ML SYRG IV PRN (13:30)
[2022-10-04 15:45] LABS: INR 1.08 (0.9-1.15); Prothrombin Time 11.3 sec (9.3-11.8)
[2022-10-04] MEDS ORDERED: dilTIAZem 25 MG/5 ML VIAL IV ONE (19:15)
[2022-10-04] MEDS: ATORVASTATIN 20 MG TAB PO SCH (21:50)
[2022-10-04] MEDS ORDERED: DRONEDARONE HCL 400 MG TAB PO SCH (22:00)
[2022-10-05] VITALS (10 sets, daily range): BP systolic 102–135; BP diastolic 52–75; PULSE 60–135; RESP 12–18; TEMP 97.5–98.3; O2SAT 93–98
[2022-10-05] MEDS ORDERED: SODIUM CHLORIDE 0.9% 1,000 ML IV SCH (00:01)
[2022-10-05] MEDS ORDERED: dilTIAZem 25 MG/5 ML VIAL IV ONE ×4 (05:45→13:10)
[2022-10-05] MEDS: InsuLIN REG 1unit/0.01ml Soln (100units/ml) SC SCH ×3 (06:00→18:43)
[2022-10-05] MEDS: GABAPENTIN 100 MG CAP PO SCH ×3 (06:00→21:56)
[2022-10-05] MEDS: ACCU-CHEK COMFORT CURVE STRIP VI SCH ×3 (06:06→18:24)
[2022-10-05 07:03] LABS: BUN/Creatinine Ratio 25.3 (10.0-20.0); Calcium 9.1 mg/dL (8.5-10.1); Potassium 3.9 mmol/L (3.5-5.1)
[2022-10-05] MEDS: LOSARTAN POTASSIUM 25 MG TAB PO SCH (10:00)
[2022-10-05] MEDS: DRONEDARONE HCL 400 MG TAB PO SCH ×2 (10:00→22:04)
[2022-10-05] MEDS ORDERED: ASPirin 81 mg TAB PO SCH (10:00)
[2022-10-05] MEDS: CARVEDILOL 12.5 MG TAB PO SCH ×2 (10:00→21:58)
[2022-10-05] MEDS ORDERED: VANCOMYCIN 1GM/250ML 250 ML IV ONE (10:30)
[2022-10-05] MEDS ORDERED: fentaNYL CITRATE 100 MCG/2 ML VL ONE (11:51)
[2022-10-05] MEDS ORDERED: LIDOCAINE 2%HCL (LOCAL ANESTH.) INJ 20ML MDV ONE (11:52)
[2022-10-05] MEDS ORDERED: MIDAZOLAM HCL 2MG/2ML 2ml VIAL (1mg/ml) ONE (11:52)
[2022-10-05] MEDS ORDERED: VANCOMYCIN HCL 1000 MG VL ONE ×2 (12:50→12:52)
[2022-10-05] MEDS ORDERED: AMIODARONE HCL (50 MG/ ML) 3 ML VIAL IV ONE (13:22)
[2022-10-05] MEDS ORDERED: ceFAZolin 1GM VL ONE (14:27)
[2022-10-05] MEDS: ACETAMINOPHEN 325 MG TAB PO PRN ×2 (16:29→22:07)
[2022-10-05] MEDS: DOXYCYCLINE 100 MG TAB/CAP PO SCH (21:56)
[2022-10-05] MEDS: ATORVASTATIN 20 MG TAB PO SCH (21:56)
[2022-10-05] MEDS ORDERED: APIXABAN 5 MG TAB PO SCH (22:00)
[2022-10-06] VITALS (8 sets, daily range): BP systolic 100–165; BP diastolic 56–93; PULSE 60–63; RESP 16–20; TEMP 97.4–97.9; O2SAT 90–97
[2022-10-06] MEDS: ACCU-CHEK COMFORT CURVE STRIP VI SCH ×5 (00:35→23:27)
[2022-10-06] MEDS: InsuLIN REG 1unit/0.01ml Soln (100units/ml) SC SCH ×5 (00:35→23:34)
[2022-10-06] MEDS: GABAPENTIN 100 MG CAP PO SCH ×3 (05:32→22:41)
[2022-10-06 08:35] LABS: BUN/Creatinine Ratio 24.3 (10.0-20.0); Calcium 8.8 mg/dL (8.5-10.1); Magnesium 2.4 mg/dL (1.6-2.6); Potassium 4.1 mmol/L (3.5-5.1)
[2022-10-06] MEDS ORDERED: amLODIPine BESYLATE 5 MG TAB PO ONE (08:45)
[2022-10-06] MEDS ORDERED: LINEZOLID 600MG/300ML 300 ML IV ONE (08:45)
[2022-10-06] MEDS: DOXYCYCLINE 100 MG TAB/CAP PO SCH ×2 (09:45→22:41)
[2022-10-06] MEDS: CARVEDILOL 12.5 MG TAB PO SCH ×2 (09:46→22:44)
[2022-10-06] MEDS: LOSARTAN POTASSIUM 25 MG TAB PO SCH (09:46)
[2022-10-06] MEDS: DRONEDARONE HCL 400 MG TAB PO SCH ×2 (09:47→22:45)
[2022-10-06] MEDS: ACETAMINOPHEN 325 MG TAB PO PRN ×3 (10:14→23:19)
[2022-10-06] MEDS: SODIUM CHLORIDE 0.9% 1,000 ML IV SCH ×2 (10:18→23:20)
[2022-10-06] MEDS ORDERED: VANCOMYCIN 1GM/250ML 250 ML IV SCH ×2 (12:00)
[2022-10-06] MEDS ORDERED: MORPHINE SULFATE INJ 2 MG/ml SYRG IV PRN (16:45)
[2022-10-06] MEDS ORDERED: INSULIN LANTUS (GLARGINE) 1 /0.01ml (100units/ml) SC SCH (17:00)
[2022-10-06] MEDS: LINEZOLID 600MG/300ML 300 ML IV SCH (22:41)
[2022-10-06] MEDS: ATORVASTATIN 20 MG TAB PO SCH (22:42)
[2022-10-07] VITALS (8 sets, daily range): BP systolic 114–123; BP diastolic 61–74; PULSE 62–71; RESP 16–20; TEMP 97.7–98.3; O2SAT 93–98
[2022-10-07] MEDS: dilTIAZem 25 MG/5 ML VIAL IV PRN ×3 (02:48→13:20)
[2022-10-07] MEDS: ACCU-CHEK COMFORT CURVE STRIP VI SCH ×4 (06:28→23:34)
[2022-10-07] MEDS: GABAPENTIN 100 MG CAP PO SCH ×3 (06:28→22:02)
[2022-10-07] MEDS: SODIUM CHLORIDE 0.9% 1,000 ML IV SCH (06:29)
[2022-10-07] MEDS: InsuLIN REG 1unit/0.01ml Soln (100units/ml) SC SCH ×4 (06:30→23:25)
[2022-10-07 06:32] LABS: Calcium 8.9 mg/dL (8.5-10.1); Potassium 3.9 mmol/L (3.5-5.1)
[2022-10-07 06:35] LABS: BUN/Creatinine Ratio 24.4 (10.0-20.0)
[2022-10-07 09:20] LABS: Albumin 3.6 g/dL (3.4-5.0); Magnesium 1.9 mg/dL (1.6-2.6)
[2022-10-07 09:26] LABS: Bilirubin, Direct 0.2 mg/dL (0-0.2); Bilirubin, Total 0.8 mg/dL (0.2-1.0)
[2022-10-07] MEDS: dilTIAZem 120MG ER CAP PO SCH (10:25)
[2022-10-07] MEDS: LINEZOLID 600MG/300ML 300 ML IV SCH ×2 (10:25→22:00)
[2022-10-07] MEDS: CARVEDILOL 12.5 MG TAB PO SCH ×2 (10:26→22:01)
[2022-10-07] MEDS: DRONEDARONE HCL 400 MG TAB PO SCH ×2 (10:27→22:02)
[2022-10-07] MEDS: LOSARTAN POTASSIUM 25 MG TAB PO SCH (10:27)
[2022-10-07] MEDS: DOXYCYCLINE 100 MG TAB/CAP PO SCH ×2 (10:28→22:02)
[2022-10-07] MEDS: ACETAMINOPHEN 325 MG TAB PO PRN (19:51)
[2022-10-07] MEDS: DOCUSATE SOD 100 MG CAP PO SCH (22:00)
[2022-10-07] MEDS ORDERED: INSULIN LANTUS (GLARGINE) 1 /0.01ml (100units/ml) SC SCH (22:00)
[2022-10-07] MEDS: ATORVASTATIN 20 MG TAB PO SCH (22:10)
[2022-10-08] MEDS: SODIUM CHLORIDE 0.9% 1,000 ML IV SCH (02:51)
[2022-10-08 05:00] VITALS: BP 122/68; PULSE 60; RESP 18; TEMP 97.6; O2SAT 95
[2022-10-08] MEDS: GABAPENTIN 100 MG CAP PO SCH ×2 (05:44→13:34)
[2022-10-08] MEDS: InsuLIN REG 1unit/0.01ml Soln (100units/ml) SC SCH ×2 (05:55→11:43)
[2022-10-08] MEDS: ACCU-CHEK COMFORT CURVE STRIP VI SCH ×2 (05:56→11:43)
[2022-10-08 08:00] VITALS: PULSE 60
[2022-10-08 09:00] VITALS: BP 135/73; PULSE 61; RESP 16; TEMP 97.8; O2SAT 96
[2022-10-08] MEDS: LINEZOLID 600MG/300ML 300 ML IV SCH (09:26)
[2022-10-08] MEDS: dilTIAZem 120MG ER CAP PO SCH (09:26)
[2022-10-08] MEDS: DOXYCYCLINE 100 MG TAB/CAP PO SCH (09:27)
[2022-10-08] MEDS: DRONEDARONE HCL 400 MG TAB PO SCH (09:27)
[2022-10-08] MEDS: DOCUSATE SOD 100 MG CAP PO SCH (09:27)
[2022-10-08] MEDS: CARVEDILOL 12.5 MG TAB PO SCH (09:27)
[2022-10-08] MEDS: LOSARTAN POTASSIUM 25 MG TAB PO SCH (09:28)
[2022-10-08] MEDS ORDERED: DILT120C54 PO (11:45)
[2022-10-08] MEDS ORDERED: DOXY-286 PO (11:45)
[2022-10-08] MEDS ORDERED: LEVEMIR SC (11:45)
[2022-10-08 13:00] VITALS: BP 123/74; PULSE 61; RESP 16; TEMP 98.5; O2SAT 95
[2022-10-08 15:08] VITALS: BP 123/74; PULSE 61; TEMP 36.6
[2022-10-08] MEDS: ACETAMINOPHEN 325 MG TAB PO PRN (16:28)
[2022-10-08 17:00] VITALS: BP 127/72; PULSE 60; RESP 16; TEMP 98; O2SAT 96
== END 2022-10-08 17:15 | disposition home or self-care (01) | DRG 242 ==
LOC: ER 19:22 → TELE 10-03 03:30 → TELE-CENTR 10-03 21:52
PROVIDERS: ADMIT Internal Medicine; ATTEND Student in an Organized Health Care Education/Training Program
PROC: 0JH606Z Insertion of Pacemaker, Dual Chamber into Chest Subcutaneous Tissue and Fascia, Open Approach (ICD-10-PCS; principal; 2022-10-05)
PROC: 02H63JZ Insertion of Pacemaker Lead into Right Atrium, Percutaneous Approach (ICD-10-PCS; 2022-10-05)
PROC: B5171ZZ Fluoroscopy of Left Subclavian Vein using Low Osmolar Contrast (ICD-10-PCS; 2022-10-05)
PROC: 02HK3JZ Insertion of Pacemaker Lead into Right Ventricle, Percutaneous Approach (ICD-10-PCS; 2022-10-05)
PROC: 4B02XSZ Measurement of Cardiac Pacemaker, External Approach (ICD-10-PCS; 2022-10-06)
DX: I47.1 Supraventricular tachycardia (principal); N17.0 Acute kidney failure with tubular necrosis; I24.8 Other forms of acute ischemic heart disease; I49.5 Sick sinus syndrome; I10 Essential (primary) hypertension; E78.5 Hyperlipidemia, unspecified; E11.40 Type 2 diabetes mellitus with diabetic neuropathy, unspecified; J44.9 Chronic obstructive pulmonary disease, unspecified; Z79.01 Long term (current) use of anticoagulants; I95.9 Hypotension, unspecified; I48.0 Paroxysmal atrial fibrillation; Z80.0 Family history of malignant neoplasm of digestive organs; Z82.49 Family history of ischemic heart disease and other diseases of the circulatory system; Z83.3 Family history of diabetes mellitus; Z90.710 Acquired absence of both cervix and uterus
CPT/HCPCS: 36415; 71045; 76775; 80048; 80053; 80076; 81001; 82962; 83735; 83880; 84484; 85025; 85610; 85730; 93005; 96374; 96375; 96376; 99152; 99153; 99291; G0378; J0153; J0690; J1815; J2250

== ENCOUNTER 2022-12-13 10:47 | Inpatient (IN) | payer OTHER ==
[2022-12-13] VITALS (9 sets, daily range): BP systolic 104–151; BP diastolic 48–65; PULSE 56–131; RESP 13–19; TEMP 97.8–98; O2SAT 94–98
[~2022-12-13] VITALS: Ht 162.6 cm; Wt 87.7 kg
[~2022-12-13 10:47] MED LIST changes: +DOXY-286 PO
[2022-12-13 11:39] LABS: Basophils # (auto) 0.1 10 ^3/uL (0-0.2); Basophils % (auto) 0.9 % (0.0-2.0); Eosinophils # (auto) 0.1 10 ^3/uL (0-0.8); Eosinophils % (auto) 1.2 % (0.0-7.0); Hematocrit 44.2 % (36.0-46.0); Hemoglobin 14.3 g/dL (12.2-16.2); Lymphocytes # (auto) 2.2 10 ^3/uL (0.4-5.4); Mean Corpuscular Hemoglobin 27.2 pg (28.0-32.0); Mean Corpuscular Hgb Conc. 32.5 g/dL (32.0-36.0); Mean Corpuscular Volume 83.7 fL (80.0-100.0); Monocytes # (auto) 1.1 10 ^3/uL (0-1.3); Monocytes % (auto) 12.3 % (0.0-12.0); Neutrophils # (auto) 5.6 10 ^3/uL (1.6-8.6); Neutrophils % (auto) 61.6 % (37.0-80.0); Nucleated Red Blood Cells % 0.1 %; Red Blood Cells 5.27 10^6/uL (4.0-5.20); Red Cell Distribution Width 15.8 % (11.8-14.3); White Blood Cell 9.1 10^3/uL (4.4-10.8)
[2022-12-13 12:28] LABS: Lactic Acid w/Reflex 3.5 mmol/L (0.4-2.0)
[2022-12-13] MEDS ORDERED: SODIUM CHLORIDE 0.9% 500 ML IV ONE ×2 (12:30→13:30)
[2022-12-13] MEDS ORDERED: DIGOXIN (250MCG/ML) 2 ML AMPULE IV ONE (12:30)
[2022-12-13 12:31] LABS: Alanine Aminotransferase 17 U/L (7-40); Albumin 4.4 g/dL (3.2-4.8); Alkaline Phosphatase 98 U/L (46-116); Anion Gap 11 (5-15); Aspartate Aminotransferase 10 U/L (13-40); BUN/Creatinine Ratio 19.8 (10.0-20.0); Blood Urea Nitrogen 26 mg/dL (9-23); Calcium 9.7 mg/dL (8.5-10.1); Carbon Dioxide 24 mmol/L (20-30); Chloride 102 mmol/L (98-107); Glucose 179 mg/dL (74-106); Potassium 4.9 mmol/L (3.5-5.1); Sodium 137 mmol/L (136-145)
[2022-12-13 12:32] LABS: Bilirubin, Total 0.7 mg/dL (0.2-1.0); Total Protein 6.8 g/dL (5.7-8.2)
[2022-12-13 13:50] LABS: Urine Bacteria NONE SEEN /hpf (None Seen); Urine Blood Negative /uL (Negative); Urine Clarity HAZY (Clear); Urine Color Yellow (Yellow); Urine Mucus FEW (None Seen); Urine Protein, UAD 1+ (Negative); Urine Specific Gravity 1.026 (1.001-1.035); Urine Urobilinogen Normal (Negative); Urine WBC 22 /hpf (0 - 5); Urine pH 5.5 (5.0-8.0)
[2022-12-13] MEDS ORDERED: ACETAMINOPHEN 325 MG TAB PO PRN (14:00)
[2022-12-13] MEDS ORDERED: NITROGLYCERIN 0.4 MG SL TAB SL PRN (14:00)
[2022-12-13] MEDS ORDERED: MORPHINE SULFATE INJ 2 MG/ml SYRG IV PRN (14:00)
[2022-12-13] MEDS ORDERED: AMIODARONE BOLUS KIT 100 ML IV ONE (14:15)
[2022-12-13] MEDS ORDERED: cefTRIAXone 1GM/50ML D5W 50 ML IV ONE (14:30)
[2022-12-13] MEDS ORDERED: AMIODARONE 450mg/250ml AE 250 ML IV SCH ×2 (14:30→20:30)
[2022-12-13] MEDS ORDERED: LORA-483 PO (14:32)
[2022-12-13] MEDS ORDERED: CARV25TA55 PO (14:32)
[2022-12-13] MEDS ORDERED: DRON400T PO (14:32)
[2022-12-13 15:23] LABS: Rapid Influenza A Negative (Negative); Rapid Influenza B Negative (Negative)
[2022-12-13 15:24] LABS: COVID19 ANTIGEN SOFIA FIA NEGATIVE (NEGATIVE)
[2022-12-13] MEDS: SODIUM CHLORIDE 0.9% 1,000 ML IV SCH (15:48)
[2022-12-13] MEDS ORDERED: DEXTROSE (50%) 50ML SYRG IV PRN (18:00)
[2022-12-13] MEDS: ACCU-CHEK COMFORT CURVE STRIP VI SCH ×2 (18:36→21:51)
[2022-12-13] MEDS: InsuLIN REG 1unit/0.01ml Soln (100units/ml) SC SCH ×2 (18:38→21:52)
[2022-12-13] MEDS: APIXABAN 5 MG TAB PO SCH (21:44)
[2022-12-13] MEDS: GABAPENTIN 100 MG CAP PO SCH (21:45)
[2022-12-13] MEDS: MAGNESIUM OXIDE 400 MG TAB PO SCH (21:45)
[2022-12-13] MEDS: ATORVASTATIN 20 MG TAB PO SCH (21:45)
[2022-12-13] MEDS: CARVEDILOL 12.5 MG TAB PO SCH (21:45)
[2022-12-13] MEDS: PATIENTS OWN MEDICATION (Dronedarone Hydrochloride (Multaq) 1 TAB) PO SCH (22:00)
[2022-12-13] MEDS ORDERED: CARVEDILOL 12.5 MG TAB PO SCH (22:00)
[2022-12-14] VITALS (22 sets, daily range): BP systolic 105–175; BP diastolic 58–77; PULSE 50–60; RESP 10–22; TEMP 97.7–98.1; O2SAT 91–98
[2022-12-14] MEDS: SODIUM CHLORIDE 0.9% 1,000 ML IV SCH (00:30)
[2022-12-14 05:36] LABS: Alkaline Phosphatase 81 U/L (46-116); Anion Gap 9 (5-15); Aspartate Aminotransferase 8 U/L (13-40); Bilirubin, Total 0.7 mg/dL (0.2-1.0); Blood Urea Nitrogen 16 mg/dL (9-23); Carbon Dioxide 24 mmol/L (20-30); Chloride 107 mmol/L (98-107); Glucose 113 mg/dL (74-106); Potassium 4.2 mmol/L (3.5-5.1); Sodium 140 mmol/L (136-145); Total Protein 6.3 g/dL (5.7-8.2)
[2022-12-14 05:50] LABS: Basophils # (auto) 0 10 ^3/uL (0-0.2); Basophils % (auto) 0.6 % (0.0-2.0); Eosinophils # (auto) 0.1 10 ^3/uL (0-0.8); Eosinophils % (auto) 1.6 % (0.0-7.0); Hematocrit 38.9 % (36.0-46.0); Hemoglobin 12.7 g/dL (12.2-16.2); Lymphocytes # (auto) 2.4 10 ^3/uL (0.4-5.4); Lymphocytes % (auto) 32.7 % (10.0-50.0); Mean Corpuscular Hemoglobin 27.3 pg (28.0-32.0); Mean Corpuscular Hgb Conc. 32.7 g/dL (32.0-36.0); Mean Corpuscular Volume 83.6 fL (80.0-100.0); Monocytes % (auto) 13.1 % (0.0-12.0); Neutrophils # (auto) 3.8 10 ^3/uL (1.6-8.6); Nucleated Red Blood Cells % 0.1 %; Red Blood Cells 4.66 10^6/uL (4.0-5.20); Red Cell Distribution Width 15.6 % (11.8-14.3); White Blood Cell 7.3 10^3/uL (4.4-10.8)
[2022-12-14] MEDS: MAGNESIUM OXIDE 400 MG TAB PO SCH ×3 (06:01→22:01)
[2022-12-14] MEDS: GABAPENTIN 100 MG CAP PO SCH ×3 (06:01→22:01)
[2022-12-14] MEDS: InsuLIN REG 1unit/0.01ml Soln (100units/ml) SC SCH ×4 (06:03→22:08)
[2022-12-14] MEDS: ACCU-CHEK COMFORT CURVE STRIP VI SCH ×4 (06:03→22:04)
[2022-12-14 06:04] LABS: Alanine Aminotransferase 9 U/L (7-40)
[2022-12-14] MEDS ORDERED: DULA0.5I SC (06:16)
[2022-12-14] MEDS: cefTRIAXone 1GM/50ML D5W 50 ML IV SCH (08:21)
[2022-12-14] MEDS: CARVEDILOL 12.5 MG TAB PO SCH ×2 (08:23→22:00)
[2022-12-14] MEDS: FUROSEMIDE 20 MG TAB PO SCH (08:24)
[2022-12-14] MEDS: LORATADINE 10 MG TAB PO SCH (08:25)
[2022-12-14] MEDS: BENAZEPRIL HCL 10 MG TAB PO SCH (08:25)
[2022-12-14] MEDS: APIXABAN 5 MG TAB PO SCH ×2 (08:26→22:01)
[2022-12-14] MEDS: EMPAGLIFLOZIN 10 MG TAB PO SCH (08:26)
[2022-12-14] MEDS ORDERED: PANTOPRAZOLE 40 MG TAB PO SCH (10:00)
[2022-12-14] MEDS: PATIENTS OWN MEDICATION (Dronedarone Hydrochloride (Multaq) 1 TAB) PO SCH (10:23)
[2022-12-14] MEDS ORDERED: cloNIDine HCL 0.1 MG TAB PO PRN (11:00)
[2022-12-14] MEDS: ATORVASTATIN 20 MG TAB PO SCH (22:02)
[2022-12-14] MEDS: DRONEDARONE HCL 400 MG TAB PO SCH (22:11)
[2022-12-15] VITALS (8 sets, daily range): BP systolic 118–147; BP diastolic 56–72; PULSE 57–69; RESP 15–20; TEMP 97.5–98; O2SAT 94–97
[2022-12-15 05:26] LABS: Chloride 102 mmol/L (98-107); Potassium 4.4 mmol/L (3.5-5.1); Sodium 136 mmol/L (136-145)
[2022-12-15 05:27] LABS: Anion Gap 9 (5-15); Carbon Dioxide 25 mmol/L (20-30)
[2022-12-15 05:32] LABS: Glucose 181 mg/dL (74-106)
[2022-12-15 05:33] LABS: BUN/Creatinine Ratio 13.4 (10.0-20.0); Blood Urea Nitrogen 16 mg/dL (9-23); Magnesium 2.1 mg/dL (1.6-2.6)
[2022-12-15] MEDS: ACCU-CHEK COMFORT CURVE STRIP VI SCH ×4 (06:22→22:31)
[2022-12-15] MEDS: MAGNESIUM OXIDE 400 MG TAB PO SCH ×3 (06:22→22:31)
[2022-12-15] MEDS: GABAPENTIN 100 MG CAP PO SCH ×3 (06:22→22:31)
[2022-12-15] MEDS: InsuLIN REG 1unit/0.01ml Soln (100units/ml) SC SCH ×4 (06:30→22:36)
[2022-12-15] MEDS: CARVEDILOL 12.5 MG TAB PO SCH ×2 (09:12→22:00)
[2022-12-15] MEDS: FUROSEMIDE 20 MG TAB PO SCH (09:12)
[2022-12-15] MEDS: BENAZEPRIL HCL 10 MG TAB PO SCH (09:12)
[2022-12-15] MEDS: LORATADINE 10 MG TAB PO SCH (09:12)
[2022-12-15] MEDS: EMPAGLIFLOZIN 10 MG TAB PO SCH (09:13)
[2022-12-15] MEDS: DRONEDARONE HCL 400 MG TAB PO SCH ×2 (09:13→22:31)
[2022-12-15] MEDS: APIXABAN 5 MG TAB PO SCH ×2 (09:13→22:30)
[2022-12-15] MEDS: cefTRIAXone 1GM/50ML D5W 50 ML IV SCH (09:14)
[2022-12-15 09:43] LABS: Basophils # (auto) 0.1 10 ^3/uL (0-0.2); Basophils % (auto) 0.8 % (0.0-2.0); Eosinophils # (auto) 0.1 10 ^3/uL (0-0.8); Eosinophils % (auto) 1.3 % (0.0-7.0); Hematocrit 42.8 % (36.0-46.0); Hemoglobin 14.1 g/dL (12.2-16.2); Lymphocytes # (auto) 2.1 10 ^3/uL (0.4-5.4); Lymphocytes % (auto) 22.3 % (10.0-50.0); Mean Corpuscular Hemoglobin 27.4 pg (28.0-32.0); Mean Corpuscular Hgb Conc. 32.9 g/dL (32.0-36.0); Mean Corpuscular Volume 83.3 fL (80.0-100.0); Monocytes # (auto) 1.1 10 ^3/uL (0-1.3); Monocytes % (auto) 11.3 % (0.0-12.0); Neutrophils # (auto) 6.1 10 ^3/uL (1.6-8.6); Neutrophils % (auto) 64.3 % (37.0-80.0); Nucleated Red Blood Cells % 0.1 %; Red Blood Cells 5.14 10^6/uL (4.0-5.20); Red Cell Distribution Width 15.6 % (11.8-14.3); White Blood Cell 9.5 10^3/uL (4.4-10.8)
[2022-12-15 10:18] LABS: Lactic Acid w/Reflex 2.3 mmol/L (0.4-2.0)
[2022-12-15] MEDS ORDERED: DOCUSATE SOD 100 MG CAP PO PRN (12:15)
[2022-12-15] MEDS ORDERED: DOCUSATE SOD 100 MG CAP PO ONE (12:15)
[2022-12-15] MEDS: ATORVASTATIN 20 MG TAB PO SCH (22:30)
[2022-12-16 05:00] VITALS: BP 111/61; PULSE 58; RESP 16; TEMP 97.5; O2SAT 93
[2022-12-16] MEDS: MAGNESIUM OXIDE 400 MG TAB PO SCH (06:20)
[2022-12-16] MEDS: GABAPENTIN 100 MG CAP PO SCH (06:20)
[2022-12-16] MEDS: ACCU-CHEK COMFORT CURVE STRIP VI SCH ×2 (06:20→11:42)
[2022-12-16] MEDS: InsuLIN REG 1unit/0.01ml Soln (100units/ml) SC SCH ×2 (06:24→11:43)
[2022-12-16 08:00] VITALS: BP 115/67; PULSE 59; PULSE 60; RESP 17; RESP 20; TEMP 97.8; O2SAT 100; O2SAT 95
[2022-12-16] MEDS ORDERED: CIPR-173 PO (08:42)
[2022-12-16] MEDS: APIXABAN 5 MG TAB PO SCH (09:05)
[2022-12-16] MEDS: CARVEDILOL 12.5 MG TAB PO SCH (09:06)
[2022-12-16] MEDS: LORATADINE 10 MG TAB PO SCH (09:06)
[2022-12-16] MEDS: FUROSEMIDE 20 MG TAB PO SCH (09:07)
[2022-12-16] MEDS: BENAZEPRIL HCL 10 MG TAB PO SCH (09:08)
[2022-12-16] MEDS: EMPAGLIFLOZIN 10 MG TAB PO SCH (09:10)
[2022-12-16] MEDS: cefTRIAXone 1GM/50ML D5W 50 ML IV SCH (09:11)
[2022-12-16] MEDS: DRONEDARONE HCL 400 MG TAB PO SCH (11:59)
[2022-12-16 12:00] VITALS: BP 105/59; PULSE 65; RESP 20; TEMP 97.9; O2SAT 93
== END 2022-12-16 15:00 | disposition home or self-care (01) | DRG 682 ==
LOC: ER 10:47 → TELE 13:58 → DOU IN ICU 16:14 → TELE-CENTR 12-14 12:49
PROVIDERS: ADMIT Nurse Practitioner Family; ATTEND Internal Medicine
PROC: 4B02XSZ Measurement of Cardiac Pacemaker, External Approach (ICD-10-PCS; principal; 2022-12-15)
DX: N17.0 Acute kidney failure with tubular necrosis (principal); I50.31 Acute diastolic (congestive) heart failure; I13.0 Hypertensive heart and chronic kidney disease with heart failure and stage 1 through stage 4 chronic kidney disease, or unspecified chronic kidney disease; I48.20 Chronic atrial fibrillation, unspecified; N30.00 Acute cystitis without hematuria; I47.10 Supraventricular tachycardia, unspecified; E11.22 Type 2 diabetes mellitus with diabetic chronic kidney disease; J44.9 Chronic obstructive pulmonary disease, unspecified; J06.9 Acute upper respiratory infection, unspecified; E78.00 Pure hypercholesterolemia, unspecified; Z20.822 Contact with and (suspected) exposure to COVID-19; R55 Syncope and collapse; N18.9 Chronic kidney disease, unspecified; Z79.01 Long term (current) use of anticoagulants; Z79.899 Other long term (current) drug therapy; Z85.038 Personal history of other malignant neoplasm of large intestine; Z80.0 Family history of malignant neoplasm of digestive organs; Z85.07 Personal history of malignant neoplasm of pancreas; Z90.710 Acquired absence of both cervix and uterus; Z95.0 Presence of cardiac pacemaker
CPT/HCPCS: 36415; 71045; 80048; 80053; 81001; 82962; 83605; 83735; 83880; 84443; 84484; 85025; 87040; 87081; 87086; 87088; 87186; 87205; 87426; 87804; 93005; 96361; 96365; 96367; 96375; 99291; G0378; J0696; J1815

== ENCOUNTER 2023-03-21 06:09 | Inpatient (IN) | payer OTHER ==
[~2023-03-21] VITALS: Ht 162.6 cm; Wt 126.5 kg
[2023-03-21] VITALS (8 sets, daily range): BP systolic 104–171; BP diastolic 56–81; PULSE 68–140; RESP 14–17; TEMP 97.5–97.8; O2SAT 96–99
[~2023-03-21 06:09] MED LIST changes: -CAR125T OR; +CARV25TA55 PO; +CIPR-173 PO; +DRON400T PO; +LORA-483 PO
[2023-03-21] MEDS ORDERED: SODIUM CHLORIDE 0.9% 1,000 ML IVB ONE (06:30)
[2023-03-21 06:55] LABS: Basophils # (auto) 0.1 10 ^3/uL (0-0.2); Basophils % (auto) 0.8 % (0.0-2.0); Eosinophils # (auto) 0.1 10 ^3/uL (0-0.8); Eosinophils % (auto) 0.9 % (0.0-7.0); Hematocrit 42.7 % (36.0-46.0); Hemoglobin 13.9 g/dL (12.2-16.2); Lymphocytes # (auto) 2.3 10 ^3/uL (0.4-5.4); Lymphocytes % (auto) 28.1 % (10.0-50.0); Mean Corpuscular Hemoglobin 26.6 pg (28.0-32.0); Mean Corpuscular Hgb Conc. 32.5 g/dL (32.0-36.0); Mean Corpuscular Volume 81.9 fL (80.0-100.0); Monocytes # (auto) 1.1 10 ^3/uL (0-1.3); Monocytes % (auto) 13.4 % (0.0-12.0); Neutrophils # (auto) 4.6 10 ^3/uL (1.6-8.6); Neutrophils % (auto) 56.8 % (37.0-80.0); Nucleated Red Blood Cells % 0.1 %; Red Blood Cells 5.22 10^6/uL (4.0-5.20); Red Cell Distribution Width 16.4 % (11.8-14.3); White Blood Cell 8.1 10^3/uL (4.4-10.8)
[2023-03-21 07:04] LABS: Chloride 105 mmol/L (98-107); Potassium 4.5 mmol/L (3.5-5.1); Sodium 137 mmol/L (136-145)
[2023-03-21 07:05] LABS: Anion Gap 9 (5-15); Carbon Dioxide 23 mmol/L (20-30)
[2023-03-21 07:10] LABS: Glucose 160 mg/dL (74-106); Magnesium 2.2 mg/dL (1.6-2.6)
[2023-03-21 07:12] LABS: BUN/Creatinine Ratio 22.3 (10.0-20.0); Blood Urea Nitrogen 21 mg/dL (9-23)
[2023-03-21 07:14] LABS: Lactic Acid w/Reflex 2.5 mmol/L (0.4-2.0)
[2023-03-21] MEDS ORDERED: cefTRIAXone 1GM/50ML D5W 50 ML IV ONE (07:15)
[2023-03-21] MEDS ORDERED: SODIUM CHLORIDE 0.9% 1,000 ML IV ONE (07:15)
[2023-03-21] MEDS ORDERED: VANCOMYCIN 1GM/200ML 200 ML IV ONE ×2 (07:15→09:45)
[2023-03-21 07:40] LABS: Urine Epithelial Cast None Seen /hpf (<5)
[2023-03-21 07:50] LABS: Urine Bacteria FEW /hpf (None Seen); Urine Blood Negative /uL (Negative); Urine Clarity Clear (Clear); Urine Protein, UAD Negative (Negative); Urine Specific Gravity 1.021 (1.001-1.035); Urine Urobilinogen Normal (Negative); Urine WBC 6 /hpf (0 - 5); Urine pH 5.5 (5.0-8.0)
[2023-03-21 07:51] LABS: Urine Color Yellow (Yellow)
[2023-03-21] MEDS ORDERED: DEXTROSE (50%) 50ML SYRG IV PRN (09:15)
[2023-03-21] MEDS ORDERED: NITROGLYCERIN 0.4 MG SL TAB SL PRN (09:15)
[2023-03-21] MEDS ORDERED: VANCOMYCIN PER PHARMACY 0 MG IV SCH (09:15)
[2023-03-21] MEDS ORDERED: MORPHINE SULFATE INJ 2 MG/ml SYRG IV PRN (09:15)
[2023-03-21 09:36] LABS: Triglycerides 175 mg/dL (< 150)
[2023-03-21 09:37] LABS: LDL Cholesterol 77 mg/dL (< 100)
[2023-03-21 09:38] LABS: Cholesterol 130 mg/dL (< 200); HDL Cholesterol 35 mg/dL (40-59)
[2023-03-21] MEDS ORDERED: ALBUTEROL SULF 2.5 MG/0.5ML(0.5%) NEB SOLN NEB PRN (09:45)
[2023-03-21] MEDS ORDERED: ADENOSINE 6 MG/2 ML INJ IV ONE ×2 (09:51→10:00)
[2023-03-21] MEDS ORDERED: PATIENTS OWN MEDICATION (Dronedarone Hydrochloride (Multaq) 1 TAB) PO SCH (10:00)
[2023-03-21] MEDS ORDERED: DILTIAZEM HCL COATED BEADS 120 MG PO SCH (10:00)
[2023-03-21] MEDS: SODIUM CHLORIDE 0.9% 1,000 ML IV SCH (10:00)
[2023-03-21] MEDS ORDERED: dilTIAZem 120MG ER CAP PO SCH (10:00)
[2023-03-21] MEDS: APIXABAN 5 MG TAB PO SCH ×2 (10:29→21:44)
[2023-03-21] MEDS: EMPAGLIFLOZIN 10 MG TAB PO SCH (10:29)
[2023-03-21] MEDS: FLECAINIDE ACETATE 50 MG TAB PO SCH ×2 (10:59→21:45)
[2023-03-21] MEDS: InsuLIN REG 1unit/0.01ml Soln (100units/ml) SC SCH ×3 (11:30→21:46)
[2023-03-21] MEDS: ACCU-CHEK COMFORT CURVE STRIP VI SCH ×3 (11:45→21:47)
[2023-03-21] MEDS: MAGNESIUM OXIDE 400 MG TAB PO SCH ×2 (14:36→21:45)
[2023-03-21] MEDS: GABAPENTIN 100 MG CAP PO SCH ×2 (14:36→21:44)
[2023-03-21] MEDS: metFORMIN HYDROCHLORIDE 500 MG TAB PO SCH (16:52)
[2023-03-21] MEDS: hydrALAZINE HCL 20 MG/ML VL IV PRN (17:48)
[2023-03-21] MEDS: ATORVASTATIN 20 MG TAB PO SCH (21:44)
[2023-03-21] MEDS: CARVEDILOL 12.5 MG TAB PO SCH (21:45)
[2023-03-21] MEDS ORDERED: dilTIAZem 25 MG/5 ML VIAL IV ONE (23:30)
[2023-03-22] VITALS (8 sets, daily range): BP systolic 134–160; BP diastolic 69–80; PULSE 69–89; RESP 15–18; TEMP 97.5–98.7; O2SAT 94–98
[2023-03-22] MEDS: VANCOMYCIN 1GM/200ML 200 ML IV SCH ×2 (01:54→20:40)
[2023-03-22] MEDS: SODIUM CHLORIDE 0.9% 1,000 ML IV SCH ×2 (02:02→20:39)
[2023-03-22] MEDS: ACCU-CHEK COMFORT CURVE STRIP VI SCH ×4 (06:11→20:41)
[2023-03-22] MEDS: InsuLIN REG 1unit/0.01ml Soln (100units/ml) SC SCH ×4 (06:11→20:52)
[2023-03-22] MEDS: GABAPENTIN 100 MG CAP PO SCH ×3 (06:49→20:41)
[2023-03-22] MEDS: metFORMIN HYDROCHLORIDE 500 MG TAB PO SCH ×2 (06:51→18:26)
[2023-03-22 07:01] LABS: Basophils # (auto) 0.1 10 ^3/uL (0-0.2); Eosinophils # (auto) 0.1 10 ^3/uL (0-0.8); Hemoglobin 13.3 g/dL (12.2-16.2); Lymphocytes # (auto) 2.5 10 ^3/uL (0.4-5.4); Mean Corpuscular Hemoglobin 26.7 pg (28.0-32.0); Monocytes # (auto) 0.9 10 ^3/uL (0-1.3); Red Cell Distribution Width 16.3 % (11.8-14.3)
[2023-03-22 07:03] LABS: Basophils % (auto) 0.8 % (0.0-2.0); Eosinophils % (auto) 1.1 % (0.0-7.0); Hematocrit 41.8 % (36.0-46.0); Lymphocytes % (auto) 32.4 % (10.0-50.0); Mean Corpuscular Hgb Conc. 31.8 g/dL (32.0-36.0); Monocytes % (auto) 11.9 % (0.0-12.0); Neutrophils # (auto) 4.1 10 ^3/uL (1.6-8.6); Neutrophils % (auto) 53.8 % (37.0-80.0); Red Blood Cells 4.98 10^6/uL (4.0-5.20); White Blood Cell 7.6 10^3/uL (4.4-10.8)
[2023-03-22 07:10] LABS: Alanine Aminotransferase 12 U/L (7-40); Albumin 4.1 g/dL (3.2-4.8); Alkaline Phosphatase 73 U/L (46-116); Anion Gap 7 (5-15); Aspartate Aminotransferase 15 U/L (13-40); BUN/Creatinine Ratio 27.3 (10.0-20.0); Blood Urea Nitrogen 21 mg/dL (9-23); Carbon Dioxide 22 mmol/L (20-30); Chloride 108 mmol/L (98-107); Glucose 110 mg/dL (74-106); Potassium 4.6 mmol/L (3.5-5.1); Sodium 137 mmol/L (136-145)
[2023-03-22 07:11] LABS: Bilirubin, Total 0.8 mg/dL (0.2-1.0); Total Protein 6.1 g/dL (5.7-8.2)
[2023-03-22] MEDS: cefTRIAXone 1GM/50ML D5W 50 ML IV SCH (08:36)
[2023-03-22] MEDS: EMPAGLIFLOZIN 10 MG TAB PO SCH (11:08)
[2023-03-22] MEDS: CARVEDILOL 12.5 MG TAB PO SCH ×2 (11:08→20:41)
[2023-03-22] MEDS: APIXABAN 5 MG TAB PO SCH ×2 (11:08→20:41)
[2023-03-22] MEDS: MAGNESIUM OXIDE 400 MG TAB PO SCH ×2 (11:09→20:41)
[2023-03-22] MEDS: FLECAINIDE ACETATE 50 MG TAB PO SCH ×2 (11:36→20:41)
[2023-03-22] MEDS ORDERED: FLEC100T PO (13:33)
[2023-03-22] MEDS: hydrALAZINE HCL 20 MG/ML VL IV PRN (18:27)
[2023-03-22] MEDS: ATORVASTATIN 20 MG TAB PO SCH (20:40)
[2023-03-22] MEDS: ACETAMINOPHEN 325 MG TAB PO PRN (20:52)
[2023-03-23] MEDS: metFORMIN HYDROCHLORIDE 500 MG TAB PO SCH (06:07)
[2023-03-23] MEDS: ACCU-CHEK COMFORT CURVE STRIP VI SCH ×2 (06:07→11:57)
[2023-03-23] MEDS: GABAPENTIN 100 MG CAP PO SCH ×2 (06:07→14:00)
[2023-03-23] MEDS: InsuLIN REG 1unit/0.01ml Soln (100units/ml) SC SCH ×2 (06:07→11:59)
[2023-03-23 08:01] VITALS: PULSE 70
[2023-03-23 08:15] VITALS: O2SAT 93
[2023-03-23] MEDS: ACETAMINOPHEN 325 MG TAB PO PRN (08:28)
[2023-03-23] MEDS: EMPAGLIFLOZIN 10 MG TAB PO SCH (08:29)
[2023-03-23] MEDS: CARVEDILOL 12.5 MG TAB PO SCH (08:29)
[2023-03-23 08:30] VITALS: BP 138/69; PULSE 72; RESP 18; TEMP 98.3
[2023-03-23] MEDS: cefTRIAXone 1GM/50ML D5W 50 ML IV SCH (08:31)
[2023-03-23 09:00] VITALS: BP 138/69; PULSE 72; RESP 18; TEMP 98.3; O2SAT 98
[2023-03-23] MEDS ORDERED: CIPR-173 PO (09:34)
[2023-03-23 10:21] VITALS: BP_SYST 137; BP_SYST 138; BP_DIAS 64; BP_DIAS 69; PULSE 72; PULSE 74; RESP 18; RESP 19; TEMP 97.7; TEMP 98.3; O2SAT 96; O2SAT 98
[2023-03-23] MEDS: FLECAINIDE ACETATE 50 MG TAB PO SCH (10:27)
[2023-03-23] MEDS: APIXABAN 5 MG TAB PO SCH (10:27)
[2023-03-23] MEDS: MAGNESIUM OXIDE 400 MG TAB PO SCH (10:27)
[2023-03-23] MEDS: SODIUM CHLORIDE 0.9% 1,000 ML IV SCH (11:15)
[2023-03-23 13:00] VITALS: BP 137/64; PULSE 74; RESP 19; TEMP 97.7; O2SAT 96
[2023-03-23] MEDS: VANCOMYCIN 1GM/200ML 200 ML IV SCH (14:00)
== END 2023-03-23 15:10 | disposition home or self-care (01) | DRG 872 ==
LOC: ER 06:09 → TELE 09:07 → TELE-CENTR 09:10
PROVIDERS: ADMIT Nurse Practitioner Family; ATTEND Family Medicine
PROC: 4B02XSZ Measurement of Cardiac Pacemaker, External Approach (ICD-10-PCS; principal; 2023-03-22)
DX: A41.9 Sepsis, unspecified organism (principal); N30.00 Acute cystitis without hematuria; Z68.42 Body mass index [BMI] 45.0-49.9, adult; J44.9 Chronic obstructive pulmonary disease, unspecified; E11.65 Type 2 diabetes mellitus with hyperglycemia; E11.22 Type 2 diabetes mellitus with diabetic chronic kidney disease; I12.9 Hypertensive chronic kidney disease with stage 1 through stage 4 chronic kidney disease, or unspecified chronic kidney disease; N18.9 Chronic kidney disease, unspecified; E66.01 Morbid (severe) obesity due to excess calories; E78.00 Pure hypercholesterolemia, unspecified; I48.0 Paroxysmal atrial fibrillation; Z95.0 Presence of cardiac pacemaker; Z90.710 Acquired absence of both cervix and uterus; Z79.84 Long term (current) use of oral hypoglycemic drugs; Z79.01 Long term (current) use of anticoagulants; Z79.4 Long term (current) use of insulin; Z79.899 Other long term (current) drug therapy; Z85.038 Personal history of other malignant neoplasm of large intestine; Z80.0 Family history of malignant neoplasm of digestive organs; Z82.49 Family history of ischemic heart disease and other diseases of the circulatory system
CPT/HCPCS: 36415; 71045; 80048; 80053; 80061; 81001; 82565; 82962; 83036; 83605; 83735; 83880; 84443; 84484; 85025; 87040; 87086; 93005; 93306; 99291; G0378; J0153; J1815

== ENCOUNTER 2023-08-28 08:49 | Inpatient (IN) | payer OTHER ==
[~2023-08-28] VITALS: Ht 162.6 cm; Wt 87.2 kg
[~2023-08-28 08:49] MED LIST changes: -BENA-19 PO; +BENA10TA90 PO; -DILT120C54 PO; -DRON400T PO; +FLEC100T PO
[2023-08-28 09:28] VITALS: PULSE 144; RESP 17; O2SAT 94
[2023-08-28 10:07] LABS: Basophils # (auto) 0.1 10 ^3/uL (0-0.2); Basophils % (auto) 0.9 % (0.0-2.0); Eosinophils # (auto) 0.1 10 ^3/uL (0-0.8); Eosinophils % (auto) 0.8 % (0.0-7.0); Hematocrit 42.6 % (36.0-46.0); Hemoglobin 14.1 g/dL (12.2-16.2); Lymphocytes # (auto) 1.9 10 ^3/uL (0.4-5.4); Lymphocytes % (auto) 21.1 % (10.0-50.0); Mean Corpuscular Hemoglobin 27.9 pg (28.0-32.0); Mean Corpuscular Hgb Conc. 33.2 g/dL (32.0-36.0); Monocytes # (auto) 1.1 10 ^3/uL (0-1.3); Monocytes % (auto) 12.4 % (0.0-12.0); Neutrophils # (auto) 5.7 10 ^3/uL (1.6-8.6); Neutrophils % (auto) 64.8 % (37.0-80.0); Nucleated Red Blood Cells % 0.2 %; Red Blood Cells 5.07 10^6/uL (4.0-5.20); Red Cell Distribution Width 15.8 % (11.8-14.3); White Blood Cell 8.8 10^3/uL (4.4-10.8)
[2023-08-28 10:10] LABS: Alanine Aminotransferase 14 U/L (7-40); Albumin 4.3 g/dL (3.2-4.8); Alkaline Phosphatase 87 U/L (46-116); Anion Gap 10 (5-15); Aspartate Aminotransferase 10 U/L (13-40); BUN/Creatinine Ratio 15.4 (10.0-20.0); Bilirubin, Total 0.8 mg/dL (0.2-1.0); Blood Urea Nitrogen 14 mg/dL (9-23); Calcium 9.5 mg/dL (8.5-10.1); Carbon Dioxide 22 mmol/L (20-30); Chloride 104 mmol/L (98-107); Glucose 187 mg/dL (74-106); Magnesium 1.9 mg/dL (1.6-2.6); Potassium 4.4 mmol/L (3.5-5.1); Sodium 136 mmol/L (136-145); Total Protein 6.5 g/dL (5.7-8.2)
[2023-08-28] MEDS: SODIUM CHLORIDE 0.9% 500 ML IV ONE (10:12)
[2023-08-28] MEDS ORDERED: METOPROLOL TARTRATE 1MG/1ML-5ML VIAL IV ONE (10:15)
[2023-08-28] MEDS: ASPirin 81 mg TAB PO ONE (10:22)
[2023-08-28 10:35] LABS: INR 1.06 (0.9-1.15); Partial Thromboplastin Time 29.1 SEC (24.5-34.5); Prothrombin Time 11.2 sec (9.3-11.8)
[2023-08-28] MEDS: AMIODARONE BOLUS KIT 100 ML IV ONE (10:39)
[2023-08-28] MEDS ORDERED: ONDANSETRON HCL 4 MG/2 ML VIAL IV PRN (10:45)
[2023-08-28] MEDS ORDERED: DEXTROSE (50%) 50ML SYRG IV PRN (10:45)
[2023-08-28] MEDS ORDERED: DOCUSATE SOD 100 MG CAP PO PRN (10:45)
[2023-08-28] MEDS ORDERED: MORPHINE SULFATE INJ 2 MG/ml SYRG IV PRN ×2 (10:45→11:45)
[2023-08-28] MEDS: AMIODARONE 450mg/250ml AE 250 ML IV SCH ×2 (11:00→11:35)
[2023-08-28] MEDS ORDERED: NITROGLYCERIN 0.4 MG SL TAB SL PRN (11:45)
[2023-08-28] MEDS: ACCU-CHEK COMFORT CURVE STRIP VI SCH (12:12)
[2023-08-28] MEDS: InsuLIN REG 1unit/0.01ml Soln (100units/ml) SC SCH (12:15)
[2023-08-28] MEDS: CARVEDILOL 12.5 MG TAB PO SCH (14:00)
[2023-08-28 17:36] LABS: Urine Bacteria FEW /hpf (None Seen); Urine Blood Negative /uL (Negative); Urine Clarity Clear (Clear); Urine Color Colorless (Yellow); Urine Protein, UAD Negative (Negative); Urine Specific Gravity 1.011 (1.001-1.035); Urine Urobilinogen Normal (Negative); Urine WBC 2 /hpf (0 - 5)
[2023-08-28] MEDS: ATORVASTATIN 20 MG TAB PO SCH (18:02)
[2023-08-28] MEDS: FUROSEMIDE 20 MG/2 ML VIAL IV ONE (20:18)
[2023-08-28] MEDS: APIXABAN 5 MG TAB PO SCH (21:58)
[2023-08-28] MEDS: FLECAINIDE ACETATE 50 MG TAB PO SCH (21:58)
[2023-08-28] MEDS ORDERED: APIXABAN 5 MG TAB PO SCH (22:00)
[2023-08-29] VITALS (8 sets, daily range): BP systolic 137–151; BP diastolic 71–88; PULSE 60–69; RESP 11–16; TEMP 98–99.3; O2SAT 94–97
[2023-08-29 04:37] LABS: Basophils # (auto) 0 10 ^3/uL (0-0.2); Basophils % (auto) 0.6 % (0.0-2.0); Eosinophils # (auto) 0.1 10 ^3/uL (0-0.8); Eosinophils % (auto) 1.2 % (0.0-7.0); Hematocrit 41.3 % (36.0-46.0); Hemoglobin 13.3 g/dL (12.2-16.2); Lymphocytes # (auto) 1.8 10 ^3/uL (0.4-5.4); Lymphocytes % (auto) 24.8 % (10.0-50.0); Mean Corpuscular Hemoglobin 27.4 pg (28.0-32.0); Mean Corpuscular Hgb Conc. 32.3 g/dL (32.0-36.0); Mean Corpuscular Volume 84.6 fL (80.0-100.0); Monocytes # (auto) 0.9 10 ^3/uL (0-1.3); Monocytes % (auto) 12.6 % (0.0-12.0); Neutrophils # (auto) 4.4 10 ^3/uL (1.6-8.6); Neutrophils % (auto) 60.8 % (37.0-80.0); Nucleated Red Blood Cells % 0.1 %; Red Blood Cells 4.88 10^6/uL (4.0-5.20); Red Cell Distribution Width 16.1 % (11.8-14.3); White Blood Cell 7.2 10^3/uL (4.4-10.8)
[2023-08-29 04:56] LABS: Alanine Aminotransferase 13 U/L (7-40); Albumin 4.1 g/dL (3.2-4.8); Alkaline Phosphatase 83 U/L (46-116); Anion Gap 7 (5-15); Aspartate Aminotransferase 11 U/L (13-40); BUN/Creatinine Ratio 15.6 (10.0-20.0); Blood Urea Nitrogen 14 mg/dL (9-23); Calcium 9.7 mg/dL (8.5-10.1); Carbon Dioxide 27 mmol/L (20-30); Chloride 103 mmol/L (98-107); Glucose 106 mg/dL (74-106); Sodium 137 mmol/L (136-145)
[2023-08-29 04:57] LABS: Bilirubin, Total 0.8 mg/dL (0.2-1.0); Total Protein 6.3 g/dL (5.7-8.2)
[2023-08-29] MEDS ORDERED: BENA5TAB9 PO (08:15)
[2023-08-29] MEDS ORDERED: DICL1GEL59 TOP (08:15)
[2023-08-29] MEDS ORDERED: CARV25TA55 PO (08:15)
[2023-08-29] MEDS ORDERED: INSU1.2I SC (08:17)
[2023-08-29] MEDS: FUROSEMIDE 20 MG/2 ML VIAL IV SCH (09:45)
[2023-08-29] MEDS: EMPAGLIFLOZIN 10 MG TAB PO SCH (09:51)
[2023-08-29] MEDS ORDERED: ATORVASTATIN 20 MG TAB PO SCH (10:00)
== END 2023-08-29 18:00 | disposition home or self-care (01) | DRG 310 ==
LOC: ER 08:49 → TELE 11:46 → TELE-WESTW 08-29 08:18
PROVIDERS: ADMIT Nurse Practitioner Family; ATTEND Nurse Practitioner Family
PROC: 4B02XSZ Measurement of Cardiac Pacemaker, External Approach (ICD-10-PCS; principal; 2023-08-28)
DX: I47.10 Supraventricular tachycardia, unspecified (principal); I48.20 Chronic atrial fibrillation, unspecified; E11.22 Type 2 diabetes mellitus with diabetic chronic kidney disease; E78.5 Hyperlipidemia, unspecified; E11.65 Type 2 diabetes mellitus with hyperglycemia; I12.9 Hypertensive chronic kidney disease with stage 1 through stage 4 chronic kidney disease, or unspecified chronic kidney disease; N18.9 Chronic kidney disease, unspecified; J44.9 Chronic obstructive pulmonary disease, unspecified; Z79.01 Long term (current) use of anticoagulants; Z79.899 Other long term (current) drug therapy; Z79.4 Long term (current) use of insulin; Z79.84 Long term (current) use of oral hypoglycemic drugs; Z95.0 Presence of cardiac pacemaker; Z90.710 Acquired absence of both cervix and uterus; Z80.0 Family history of malignant neoplasm of digestive organs; Z85.07 Personal history of malignant neoplasm of pancreas; Z85.038 Personal history of other malignant neoplasm of large intestine
CPT/HCPCS: 36415; 71045; 80053; 81001; 82962; 83735; 83880; 84100; 84443; 84484; 85025; 85610; 85730; 93005; 93306; 99291; G0378; J1815

== ENCOUNTER 2023-12-20 06:53 | Inpatient (IN) | payer OTHER ==
[~2023-12-20] VITALS: Ht 137.2 cm; Wt 87.4 kg
[~2023-12-20 06:53] MED LIST changes: -BENA10TA90 PO; +BENA5TAB9 PO; -CIPR-173 PO; +DICL1GEL59 TOP; -DOXY-286 PO; +INSU1.2I SC; -LEVEMIR SC; -LORA-483 PO
[2023-12-20 07:25] VITALS: PULSE 132; RESP 13; O2SAT 95
[2023-12-20 08:10] LABS: Basophils # (auto) 0.1 10 ^3/uL (0-0.2); Basophils % (auto) 0.8 % (0.0-2.0); Eosinophils # (auto) 0.1 10 ^3/uL (0-0.8); Eosinophils % (auto) 0.8 % (0.0-7.0); Hemoglobin 15.1 g/dL (12.2-16.2); Lymphocytes # (auto) 1.9 10 ^3/uL (0.4-5.4); Lymphocytes % (auto) 20.3 % (10.0-50.0); Mean Corpuscular Hemoglobin 27.8 pg (28.0-32.0); Mean Corpuscular Hgb Conc. 32.9 g/dL (32.0-36.0); Mean Corpuscular Volume 84.4 fL (80.0-100.0); Monocytes # (auto) 0.9 10 ^3/uL (0-1.3); Monocytes % (auto) 9.9 % (0.0-12.0); Neutrophils # (auto) 6.2 10 ^3/uL (1.6-8.6); Neutrophils % (auto) 68.2 % (37.0-80.0); Nucleated Red Blood Cells % 0.2 %; Platelet Count (auto) 239 10^3/uL (140-450); Red Blood Cells 5.46 10^6/uL (4.0-5.20); Red Cell Distribution Width 15.6 % (11.8-14.3); White Blood Cell 9.1 10^3/uL (4.4-10.8)
[2023-12-20 08:28] LABS: Chloride 105 mmol/L (98-107); Potassium 4.5 mmol/L (3.5-5.1); Sodium 139 mmol/L (136-145)
[2023-12-20 08:29] LABS: Anion Gap 9 (5-15); Calcium 9.7 mg/dL (8.7-10.4); Carbon Dioxide 25 mmol/L (20-31)
[2023-12-20 08:34] LABS: BUN/Creatinine Ratio 14.7 (10.0-20.0); Blood Urea Nitrogen 15 mg/dL (9-23); Glucose 198 mg/dL (74-106)
[2023-12-20 11:25] LABS: Urine WBC None Seen /hpf (0 - 5)
[2023-12-20 13:13] LABS: Urine Blood 2+ /uL (Negative); Urine Clarity Clear (Clear); Urine Color Light-Yellow (Yellow); Urine Protein, UAD Negative (Negative); Urine Specific Gravity 1.031 (1.001-1.035); Urine Urobilinogen Normal (Negative); Urine pH 5.5 (5.0-9.0)
[2023-12-20 13:38] LABS: Urine Bacteria MANY /hpf (None Seen)
[2023-12-20] MEDS ORDERED: HYDROcodone-ACET 5/325MG TAB PO PRN (16:15)
[2023-12-20] MEDS ORDERED: ACETAMINOPHEN 325 MG TAB PO PRN (16:15)
[2023-12-20] MEDS ORDERED: MORPHINE SULFATE INJ 2 MG/ml SYRG IV PRN (16:15)
[2023-12-20] MEDS ORDERED: NITROGLYCERIN 0.4 MG SL TAB SL PRN (16:15)
[2023-12-20] MEDS ORDERED: ONDANSETRON HCL 4 MG/2 ML VIAL IV PRN (16:15)
[2023-12-20] MEDS ORDERED: DEXTROSE (50%) 50ML SYRG IV PRN (16:15)
[2023-12-20] MEDS: ACCU-CHEK COMFORT CURVE STRIP VI SCH (17:00)
[2023-12-20] MEDS: InsuLIN REG 1unit/0.01ml Soln (100units/ml) SC SCH ×2 (17:00→21:28)
[2023-12-20 20:00] VITALS: PULSE 71; RESP 18; O2SAT 96
[2023-12-20 21:00] VITALS: BP 115/54; PULSE 72; RESP 18; TEMP 97.6; O2SAT 94
[2023-12-20] MEDS: APIXABAN 5 MG TAB PO SCH (21:32)
[2023-12-20] MEDS: GABAPENTIN 100 MG CAP PO SCH (21:32)
[2023-12-20] MEDS: MAGNESIUM OXIDE 400 MG TAB PO SCH (21:33)
[2023-12-20] MEDS: ATORVASTATIN 20 MG TAB PO SCH (21:33)
[2023-12-20] MEDS: CARVEDILOL 12.5 MG TAB PO SCH (21:35)
[2023-12-20] MEDS: FLECAINIDE ACETATE 50 MG TAB PO SCH (22:16)
[2023-12-21 01:00] VITALS: BP 114/63; PULSE 67; RESP 17; TEMP 97.6; O2SAT 92
[2023-12-21 05:00] VITALS: BP 153/71; PULSE 95; RESP 17; TEMP 97.4; O2SAT 92
[2023-12-21 07:05] LABS: Basophils # (auto) 0 10 ^3/uL (0-0.2); Basophils % (auto) 0.5 % (0.0-2.0); Eosinophils # (auto) 0.1 10 ^3/uL (0-0.8); Eosinophils % (auto) 1.3 % (0.0-7.0); Hematocrit 40.9 % (36.0-46.0); Hemoglobin 13.9 g/dL (12.2-16.2); Lymphocytes # (auto) 2.2 10 ^3/uL (0.4-5.4); Mean Corpuscular Hemoglobin 28.3 pg (28.0-32.0); Mean Corpuscular Volume 83.2 fL (80.0-100.0); Monocytes # (auto) 0.9 10 ^3/uL (0-1.3); Neutrophils # (auto) 5.2 10 ^3/uL (1.6-8.6); Neutrophils % (auto) 61.2 % (37.0-80.0); Platelet Count (auto) 188 10^3/uL (140-450); Red Blood Cells 4.92 10^6/uL (4.0-5.20); Red Cell Distribution Width 15.6 % (11.8-14.3); White Blood Cell 8.5 10^3/uL (4.4-10.8)
[2023-12-21 07:12] LABS: Chloride 107 mmol/L (98-107); Sodium 138 mmol/L (136-145)
[2023-12-21 07:13] LABS: Anion Gap 6 (5-15); Calcium 9.3 mg/dL (8.7-10.4); Carbon Dioxide 25 mmol/L (20-31)
[2023-12-21 07:18] LABS: Glucose 101 mg/dL (74-106)
[2023-12-21 07:19] LABS: BUN/Creatinine Ratio 21.6 (10.0-20.0); Blood Urea Nitrogen 19 mg/dL (9-23)
[2023-12-21 08:00] VITALS: PULSE 60; PULSE 64; RESP 16; O2SAT 97
[2023-12-21 09:00] VITALS: BP 142/76; PULSE 60; RESP 16; TEMP 97.4; O2SAT 97
[2023-12-21] MEDS: cefTRIAXone 1GM/50ML D5W 50 ML IV SCH (09:54)
[2023-12-21] MEDS: BENAZEPRIL HCL 10 MG TAB PO SCH (09:58)
[2023-12-21] MEDS: FUROSEMIDE 20 MG TAB PO SCH (09:58)
[2023-12-21] MEDS: EMPAGLIFLOZIN 10 MG TAB PO SCH (09:59)
[2023-12-21 13:00] VITALS: BP 152/92; PULSE 66; RESP 17; TEMP 98.4; O2SAT 95
[2023-12-21 14:30] VITALS: BP 152/72; PULSE 66; RESP 17; TEMP 98.4; O2SAT 95
== END 2023-12-21 15:25 | disposition home or self-care (01) | DRG 309 ==
LOC: ER 06:53 → TELE 16:11 → TELE-WESTW 16:27
PROVIDERS: ADMIT Registered Nurse General Practice; ATTEND Registered Nurse General Practice
DX: I47.10 Supraventricular tachycardia, unspecified (principal); N30.00 Acute cystitis without hematuria; I12.9 Hypertensive chronic kidney disease with stage 1 through stage 4 chronic kidney disease, or unspecified chronic kidney disease; I48.0 Paroxysmal atrial fibrillation; E78.5 Hyperlipidemia, unspecified; N18.9 Chronic kidney disease, unspecified; I49.5 Sick sinus syndrome; E11.22 Type 2 diabetes mellitus with diabetic chronic kidney disease; Z79.4 Long term (current) use of insulin; Z79.899 Other long term (current) drug therapy; Z95.0 Presence of cardiac pacemaker; Z90.710 Acquired absence of both cervix and uterus; Z87.891 Personal history of nicotine dependence; Z85.07 Personal history of malignant neoplasm of pancreas; Z85.038 Personal history of other malignant neoplasm of large intestine; Z80.0 Family history of malignant neoplasm of digestive organs; Z79.84 Long term (current) use of oral hypoglycemic drugs; Z79.01 Long term (current) use of anticoagulants
CPT/HCPCS: 36415; 80048; 81001; 82962; 84484; 85025; 93005; 99291; G0378; J1815

== ENCOUNTER 2024-02-04 07:36 | Inpatient (IN) | payer OTHER ==
[~2024-02-04] VITALS: Ht 162.6 cm; Wt 72.0 kg
[~2024-02-04 07:36] MED LIST changes: -FURO20TA3 PO
[2024-02-04 08:33] LABS: Basophils # (auto) 0.1 10 ^3/uL (0-0.2); Basophils % (auto) 0.8 % (0.0-2.0); Eosinophils # (auto) 0 10 ^3/uL (0-0.8); Eosinophils % (auto) 0.3 % (0.0-7.0); Hematocrit 45.6 % (36.0-46.0); Hemoglobin 14.7 g/dL (12.2-16.2); Lymphocytes # (auto) 1.4 10 ^3/uL (0.4-5.4); Lymphocytes % (auto) 17.3 % (10.0-50.0); Mean Corpuscular Hemoglobin 27.6 pg (28.0-32.0); Mean Corpuscular Hgb Conc. 32.2 g/dL (32.0-36.0); Mean Corpuscular Volume 85.7 fL (80.0-100.0); Monocytes # (auto) 0.6 10 ^3/uL (0-1.3); Monocytes % (auto) 7.7 % (0.0-12.0); Neutrophils # (auto) 6.2 10 ^3/uL (1.6-8.6); Neutrophils % (auto) 73.9 % (37.0-80.0); Nucleated Red Blood Cells % 0.1 %; Platelet Count (auto) 231 10^3/uL (140-450); Red Blood Cells 5.32 10^6/uL (4.0-5.20); Red Cell Distribution Width 15.9 % (11.8-14.3); White Blood Cell 8.3 10^3/uL (4.4-10.8)
[2024-02-04 08:43] LABS: Chloride 102 mmol/L (98-107); Potassium 4.9 mmol/L (3.5-5.1)
[2024-02-04 08:44] LABS: Anion Gap 10 (5-15); Calcium 9.8 mg/dL (8.7-10.4); Carbon Dioxide 22 mmol/L (20-31)
[2024-02-04 08:49] LABS: BUN/Creatinine Ratio 23.8 (10.0-20.0)
[2024-02-04 08:50] LABS: Blood Urea Nitrogen 25 mg/dL (9-23); Glucose 225 mg/dL (74-106); Sodium 134 mmol/L (136-145)
--- NOTE | 2024-02-04 08:54 | ED.PDOC ---
History of Present Illness HPI Comments 73 y/o F, Hx of AFIB, SVT, COPD, DM, HLD, HTN, pacemaker, and colon CA -in remission, presents with c/o palpitations, today. Patient endorses on sudden and unprovoked onset of palpitations, this morning, at around 0300. She then states on checking bother her heart rate and blood pressure at-home and noticed them being at a value >120 and <100 systolically, respectively. Patient states on having Hx of palpitations and issues with fluctuating heart rate and blood pressure for the past 3x years and is in consult with her PCP and van driver helper for another heart ablation following previous one performed on the "right-side" in February 2022. She denies having any chest pain, shortness of breath, nausea, vomiting, fever, chills, or other associated symptoms or modifiers at this time. Chief Complaint: Palpitations Time Seen by MD: 08:20 Primary Care Provider: Dr. Menjivar, Dr. Sylvester Reviewed Notes: Nurses Notes, Medications, Allergies Allergies: Coded Allergies: No Known Drug Allergy (Verified Allergy, Unknown, 04/26/20) Home Meds Active Scripts Flecainide Acetate (Flecainide Acetate) 100 Mg Tab, 1 TAB PO BID, #60 TAB 5 Refills Prov:MARGARITA MANRIQUE MD 03/22/23 Reported Medications Insulin Glargine (Toujeo Solostar) 300 Unit/Ml Inj, 25 UNIT SC HS, INJ 08/29/23 Diclofenac Sodium (Topical) (Voltaren Arthritis Pain) 1 % Gel, 2 GRAMS TOP Q6HP PRN for PAIN SCALE 1 THRU 6, GEL 08/29/23 Benazepril Hcl (Benazepril Hcl) 5 Mg Tab, 2.5 MG PO DAILY, TAB 08/29/23 Carvedilol (Carvedilol) 25 Mg Tab, 1 TAB PO TID, #180 TAB 1 Refill 08/29/23 Dulaglutide (Trulicity) 1.5 Mg/0.5 Ml Inj, 1.5 MG SC QWEEKLY, INJ 07/03/21 Insulin Lispro (Human) (Humalog) 100 Unit/Ml Inj, 6 UNIT SC AC, INJ 07/03/21 Magnesium Oxide (MAGNESIUM OXIDE) 400 Mg Tab, 1 TAB PO TID, #30 TAB 5 Refills 07/03/21 Empagliflozin (Jardiance) 10 Mg Tab, 25 MG PO DAILY, TAB 07/03/21 Atorvastatin Calcium (ATORVASTATIN CALCIUM) 40 Mg Tab, 1 TAB PO DAILY, #30 TAB 5 Refills 07/03/21 Gabapentin (Gabapentin) 100 Mg Cap, 100 MG PO TID 07/03/21 Apixaban Base (ELIQUIS) 5 Mg Tab, 5 MG PO BID, TAB 07/03/21 Metformin Hydrochloride (Metformin Hcl) 500 Mg Tab, 1000 MG PO IBID for 30 Days, MG 07/03/21 Information Source: Patient Mode of Arrival: Ambulatory Severity: Moderate Timing: Hours Duration: Since onset Prehospital treatment: Other (see HPI) Past Medical History PAST MEDICAL HISTORY: AFIB, Cancer (colon CA, in remission s/p Sx intervention ), COPD, DM, High Lipids, HTN Past Medical History (Other): SVT Surgical History: Hernia Repair, Hysterectomy, Pacemaker Surgical History (Other): Colon CA Sx, cardiac ablation SKIP PIT WORKER History: No Pertinent SKIP PIT WORKER History Family History Family History: Family hx of Cancer, Family hx of heart [place] Social History Smoker: Non-Smoker Alcohol: Occasionally Drugs: Denies Drug Use Lives In: Home Physical Exam General Appearance: Moderate Distress HEENT: Normal ENT Inspection, Pharynx Normal, TMs Normal Neck: Full Range of Motion, Non-Tender, Normal, Normal Inspection Respiratory: Chest Non-Tender, Lungs Clear, No Accessory Muscle Use, No Respiratory Distress, Normal Breath Sounds Cardiovascular: Tachycardia Breast Exam: Deferred Gastrointestinal: No Organomegaly, Non Tender, No Pulsatile Mass, Normal Bowel Sounds, Soft Genitalia: Deferred Pelvic: Deferred Rectal: Deferred Extremities: No calf tenderness, Normal capillary refill, Normal inspection, Normal range of motion, Non-tender, No pedal edema Musculoskeletal : Apperance: Normal Neurologic: Alert, tick inspector II-XII nml as Tested, No Motor Deficits, Normal Affect, Normal Mood, No Sensory Deficits Cerebellar Function: NOT DONE Reflexes: NOT DONE Skin: Dry, Normal Color, Warm Peripheral Pulses: 3+ Radial (R), 3+ Radial (L) Lymphatic: No Adenopathy Was a procedure done? Was a procedure done?: No Differential Dx Considerations may include: SVT Electrolyte imbalance X-Ray, Labs, Meds, VS Vital Signs Date Time Temp Pulse Resp B/P (MAP) Pulse Ox O2 Delivery O2 Flow Rate FiO2 02/04/24 11:32 122 13 94/64 (74) 96 02/04/24 10:58 124 20 65/43 (50) 94 02/04/24 10:26 130 95/60 02/04/24 10:15 98.0 130 17 95/60 (72) 96 98.0 02/04/24 10:15 130 17 96 Room Air* 0 21 02/04/24 08:36 127 02/04/24 07:50 131 02/04/24 07:49 98.1 130 18 94/62 (73) 98 Lab Test 02/04/24 08:34 02/04/24 07:59 Range/Units Urine Color Light-yellow Yellow Urine Clarity Clear Clear Urine pH 5.5 5.0-9.0 Urine Specific [place] 1.031 1.001-1.035 Urine Protein Trace H Negative Urine Ketones Negative Negative Urine Blood Negative Negative /uL Urine Nitrite Negative Negative Urine Bilirubin Negative Negative Urine Urobilinogen Normal Negative mg/dL Urine Leukocyte Esterase Negative Negative /uL Urine RBC 2 0 - 4 /hpf Urine WBC 7 0 - 5 /hpf Urine Squamous Epithelial Cells Few <5 /hpf Urine Bacteria None seen None Seen /hpf Urine Glucose 4+ H Normal mg/dL White Blood Count 8.3 4.4-10.8 10^3/uL Red Blood Count 5.32 H 4.0-5.20 10^6/uL Hemoglobin 14.7 12.2-16.2 g/dL Hematocrit 45.6 36.0-46.0 % Mean Corpuscular Volume 85.7 80.0-100.0 fL Mean Corpuscular Hemoglobin 27.6 L 28.0-32.0 pg Mean Corpuscular Hemoglobin Concent 32.2 32.0-36.0 g/dL Red Cell Distribution Width 15.9 H 11.8-14.3 % Platelet Count 231 140-450 10^3/uL Mean Platelet Volume 9.1 6.9-10.8 fL Neutrophils (%) (Auto) 73.9 37.0-80.0 % Lymphocytes (%) (Auto) 17.3 10.0-50.0 % Monocytes (%) (Auto) 7.7 0.0-12.0 % Eosinophils (%) (Auto) 0.3 0.0-7.0 % Basophils (%) (Auto) 0.8 0.0-2.0 % Neutrophils # (Auto) 6.2 1.6-8.6 10 ^3/uL Lymphocytes # (Auto) 1.4 0.4-5.4 10 ^3/uL Monocytes # (Auto) 0.6 0-1.3 10 ^3/uL Eosinophils # (Auto) 0 0-0.8 10 ^3/uL Basophils # (Auto) 0.1 0-0.2 10 ^3/uL Nucleated Red Blood Cells 0.1 % Sodium Level 134 L 136-145 mmol/L Potassium Level 4.9 3.5-5.1 mmol/L Chloride Level 102 98-107 mmol/L Carbon Dioxide Level 22 20-31 mmol/L Anion Gap 10 5-15 Blood Urea Nitrogen 25 H 9-23 mg/dL Creatinine 1.05 H 0.550-1.02 mg/dL Glomerular Filtration Rate Calc 55 >90 mL/min BUN/Creatinine Ratio 23.8 H 10.0-20.0 Serum Glucose 225 H 74-106 mg/dL Hemoglobin A1c 7.0 H <5.7 % A1C Calcium Level 9.8 8.7-10.4 mg/dL Phosphorus Level 3.7 2.4-5.1 mg/dL Magnesium Level 2.0 1.6-2.6 mg/dL Troponin I High Sensitivity 4 </=34 ng/L Current Medications Medications (Trade) Dose Ordered Sig/Jeff Route Start Time Stop Time Status Last Admin Metoprolol Tartrate (Lopressor) 5 mg ONCE ONCE IV 02/04/24 09:45 02/04/24 09:46 DC 02/04/24 10:26 Patient alert. Complaining of palpitation. Has had ablation. Vitals stable. Answering all questions. EKG does show tachycardia possible SVT. WBC within normal limits. Hemoglobin within normal limits. Blood sugar elevated. Reviewed her previous visit. Explained to the patient. Continue cardiac monitoring. Time of 1ST Reevaluation: 08:50 Reevaluation 1ST: Unchanged Patient Education/Counseling: Diagnosis, Treatment Family Education/Counseling: No Family Present Departure 1 Departure Time of Disposition: 09:38 Impression: Primary Impression: SVT (supraventricular tachycardia) Disposition: ADMITTED INPATIENT Admit to: Med Surg Condition: Guarded Critical Care Note Critical Care Time?: Yes (35 min-critical care time only) Stability Stability form required: No Heart Score Heart Score: Heart Score Response (Comments) Value History Moderate Suspicious 1 EKG Normal 0 Age >65 2 Risk Factors >3 or Hx ASHD 2 Troponin Normal limit 0 Total 5 I personally scribed for GUZMAN RIVERA MD ([email or web address]) on 02/04/24 at 08:54. Electronically submitted by Mikal Judge [email or web address]). GUZMAN RIVERA MD Feb 04, 2024 08:54
[2024-02-04 09:00] LABS: Urine Bacteria None Seen /hpf (None Seen)
[2024-02-04 09:10] LABS: Urine Blood Negative /uL (Negative); Urine Clarity Clear (Clear); Urine Color Light-Yellow (Yellow); Urine Protein, UAD TRACE (Negative); Urine Specific Gravity 1.031 (1.001-1.035); Urine Urobilinogen Normal (Negative); Urine WBC 7 /hpf (0 - 5); Urine pH 5.5 (5.0-9.0)
[2024-02-04 10:15] VITALS: PULSE 130; RESP 17; O2SAT 96
[2024-02-04] MEDS: METOPROLOL TARTRATE 1MG/1ML-5ML VIAL IV ONE (10:26)
[2024-02-04] MEDS: SODIUM CHLORIDE 0.9% 1,000 ML IV ONE (10:50)
--- NOTE | 2024-02-04 11:41 | DVHHP2 ---
History of Present Illness Reason for Visit: Palpitation History of Present Illness 73-year-old female past medical history AFib SVT diabetes hyperlipidemia hypertension a pacemaker, ablation procedure in March 16, 2022 she has colon cancer in currently in remission chief complaint patient states she had palpitation that started this morning around 3:00 a.m.. She checked her heart rate and blood pressure knows her blood pressure was low the systolic blood pressure was less than 100. On my exam her blood pressure was found to be 69/48 she was getting IV fluid bolus. She also had SVT with a heart rate 120s and metoprolol 5 mg was provided IV likely that was the reason for hypotensive patie nt currently complains of dizziness and pain on her chest that radiates across her right shoulder to her left shoulder like her heartburn type pain that lasted 5 minutes but he is currently not present. When speaking with the patient she states her doctor cards is [place]. When evaluating patient's labs and imaging EKG showed SVT patient also had an echocardiogram her EF was 65-70% on 08/28/2023 patient was provided metoprolol in the ER CBC was unremarkable sodium was 134 creatinine is 1.05 and 25 glucose was elevated at 225 troponin was negative UA was unremarkable. Past Medical History See HPI above Past Surgical History See HPI above Family History Reviewed, non-contributory to the management of this case. Past Social History The patient lives at home, denies smoking, alcohol or illicit drugs abuse. Review of Systems Constitutional: No: Fever, Chills, Sweats, Weakness, Malaise, Other Eyes: No: Pain, Vision change, Conjunctivae inflammation, Eyelid inflammation, Other, Redness ENT: No: Ear pain, Ear discharge, Nose pain, Nose discharge, Nose congestion, Mouth pain, Mouth swelling, Throat pain, Throat swelling, Other Respiratory: No: Cough, Dry, Shortness of breath, SOB with excertion, Wheezing, Hemoptysis, Pleuritic Pain, Sputum, Wheezing, Other Cardiovascular: Palpitations; No: Chest Pain, Orthopnea, Paroxysmal Noc. Dyspnea, Edema, Lt Headedness, Other Gastrointestinal: No: Nausea, Vomiting, Abdominal Pain, Diarrhea, Constipation, Melena, Hematochezia, Other Genitourinary: No Dysuria, No Frequency, No Incontinence, No Hematuria, No Retention, No Other Musculoskeletal: No: other, neck pain, shoulder pain, arm pain, back pain, hand pain, leg pain, foot pain Skin: No: Rash, Lesions, Jaundice, Bruising, Other Neurological: No: Weakness, Numbness, Incoordination, Change in speech, Confusion, Seizures, Other Allergies: Coded Allergies: No Known Drug Allergy (Verified Allergy, Unknown, 04/26/20) Exam Vital Signs Vital Signs Date Time Temp Pulse Resp B/P (MAP) Pulse Ox O2 Delivery O2 Flow Rate FiO2 02/04/24 11:32 122 13 94/64 (74) 96 02/04/24 10:15 98.0 98.0 02/04/24 10:15 Room Air* 0 21 General Appearance: Alert, Oriented X3, Cooperative, No acute distress HEENT: Atraumatic, PERRLA, EOMI, Mucous membr. moist/pink Respiratory: Clear to auscultation, Normal air movement Cardiovascular: Regular rate, Normal S1, Normal S2, No murmurs, Other (tachy) Abdominal: Normal bowel sounds, Soft, No tenderness, No hepatospenomegaly, No masses Extremities: No clubbing, No cyanosis, No edema, Normal pulses, No tenderness/swelling Skin: No rashes, No breakdown, No significant lesion Neuro: Normal gait, Normal speech, Strength at 5/5 X4 ext, Normal tone, Sensation intact, Cranial nerves 3-12 NL Psych/Mental Status: Mental status NL, Mood NL Labs/Xrays I reviewed labs, imaging CT scan abdomen pelvis, EKG and all diagnostic studies on this patient from ED records and the medical chart Labs Test 02/04/24 08:34 02/04/24 07:59 Range/Units Urine Color Light-yellow Yellow Urine Clarity Clear Clear Urine pH 5.5 5.0-9.0 Urine Specific [place] 1.031 1.001-1.035 Urine Protein Trace H Negative Urine Ketones Negative Negative Urine Blood Negative Negative /uL Urine Nitrite Negative Negative Urine Bilirubin Negative Negative Urine Urobilinogen Normal Negative mg/dL Urine Leukocyte Esterase Negative Negative /uL Urine RBC 2 0 - 4 /hpf Urine WBC 7 0 - 5 /hpf Urine Squamous Epithelial Cells Few <5 /hpf Urine Bacteria None seen None Seen /hpf Urine Glucose 4+ H Normal mg/dL White Blood Count 8.3 4.4-10.8 10^3/uL Red Blood Count 5.32 H 4.0-5.20 10^6/uL Hemoglobin 14.7 12.2-16.2 g/dL Hematocrit 45.6 36.0-46.0 % Mean Corpuscular Volume 85.7 80.0-100.0 fL Mean Corpuscular Hemoglobin 27.6 L 28.0-32.0 pg Mean Corpuscular Hemoglobin Concent 32.2 32.0-36.0 g/dL Red Cell Distribution Width 15.9 H 11.8-14.3 % Platelet Count 231 140-450 10^3/uL Mean Platelet Volume 9.1 6.9-10.8 fL Neutrophils (%) (Auto) 73.9 37.0-80.0 % Lymphocytes (%) (Auto) 17.3 10.0-50.0 % Monocytes (%) (Auto) 7.7 0.0-12.0 % Eosinophils (%) (Auto) 0.3 0.0-7.0 % Basophils (%) (Auto) 0.8 0.0-2.0 % Neutrophils # (Auto) 6.2 1.6-8.6 10 ^3/uL Lymphocytes # (Auto) 1.4 0.4-5.4 10 ^3/uL Monocytes # (Auto) 0.6 0-1.3 10 ^3/uL Eosinophils # (Auto) 0 0-0.8 10 ^3/uL Basophils # (Auto) 0.1 0-0.2 10 ^3/uL Nucleated Red Blood Cells 0.1 % Sodium Level 134 L 136-145 mmol/L Potassium Level 4.9 3.5-5.1 mmol/L Chloride Level 102 98-107 mmol/L Carbon Dioxide Level 22 20-31 mmol/L Anion Gap 10 5-15 Blood Urea Nitrogen 25 H 9-23 mg/dL Creatinine 1.05 H 0.550-1.02 mg/dL Glomerular Filtration Rate Calc 55 >90 mL/min BUN/Creatinine Ratio 23.8 H 10.0-20.0 Serum Glucose 225 H 74-106 mg/dL Calcium Level 9.8 8.7-10.4 mg/dL Troponin I High Sensitivity 4 </=34 ng/L Assessment/Plan Assessment/Plan acute svt with palpitations found on ekg ordered metoprolol in er ordered mag phos fu results pt had recent echo completed on 08/29/23 ef 65-70% ordered cards consult Dr. simmons cont home medication once bp improved coreg, atorvastatin, asa and eliquis ordered cxr fu results acute afib without rvr cont home eliquis monitor uncontrolled type 2 dm ordered accucheck ac/hs with sliding scale chronic hld cont home medication uncontrolled benign essential hypertension hypotensive hold home coreg until bp improves acute hypotension likely from recent metoprolol ordered ivf bolus for now if continued hypotension consider levophed cont to monitor fen/ppx diet ivf scd eliquids no gi ppx since no hx of gerds or gi bleed plan admit to tele cards consult Plan discussed with: Patient Date of Service: Feb 04, 2024 Billing Provider: ADAN ROBERTSON DNP Common Visit Codes: [id number] INP/OBS CARE (HIGH) ADAN ROBERTSON DNP Feb 04, 2024 11:41
[2024-02-04] MEDS ORDERED: ONDANSETRON HCL 4 MG/2 ML VIAL IV PRN (11:45)
[2024-02-04] MEDS ORDERED: DEXTROSE (50%) 50ML SYRG IV PRN (11:45)
[2024-02-04] MEDS ORDERED: MORPHINE SULFATE INJ 2 MG/ml SYRG IV PRN (11:45)
[2024-02-04] MEDS ORDERED: DOCUSATE SOD 100 MG CAP PO PRN (11:45)
[2024-02-04] MEDS ORDERED: NITROGLYCERIN 0.4 MG SL TAB SL PRN (11:45)
[2024-02-04 12:14] LABS: Phosphorus 3.7 mg/dL (2.4-5.1)
[2024-02-04] MEDS: GABAPENTIN 100 MG CAP PO SCH (13:58)
[2024-02-04] MEDS: CARVEDILOL 12.5 MG TAB PO SCH (13:59)
[2024-02-04] MEDS ORDERED: PATIENTS OWN MEDICATION (Carvedilol 1 TAB) PO SCH (14:00)
[2024-02-04] MEDS: SODIUM CHLORIDE 0.9% 1,000 ML IV SCH (15:04)
[2024-02-04] MEDS: ACCU-CHEK COMFORT CURVE STRIP VI SCH (17:00)
[2024-02-04] MEDS: InsuLIN REG 1unit/0.01ml Soln (100units/ml) SC SCH (17:00)
--- NOTE | 2024-02-04 18:08 | DVH ---
CHEST RADIOGRAPH Indication: eval for cp and palpiations Technique: Single frontal view of the chest was obtained Comparison: XY CHEST PORTABLE on DOS: 08/28/23, XY CHEST PORTABLE on DOS: 03/21/23, XY CHEST PORTABLE on DOS: 12/13/22 FINDINGS: Lines and Tubes: None approach dual lead pacemaker terminating within right atrium and right ventricl e. Lungs: No focal consolidation. Pleura: No effusion. No pneumothorax. Cardiomediastinal contours: Unremarkable Bones: No acute osseous abnormality. IMPRESSION: No acute cardiopulmonary disease.
[2024-02-04] MEDS: ASPirin 81 mg TAB PO ONE (18:10)
[2024-02-04 19:52] VITALS: PULSE 69; RESP 12; O2SAT 98
[2024-02-04] MEDS: FLECAINIDE ACETATE 50 MG TAB PO SCH (21:43)
[2024-02-04] MEDS: ATORVASTATIN 20 MG TAB PO SCH (21:44)
[2024-02-04] MEDS: APIXABAN 5 MG TAB PO SCH (21:56)
[2024-02-04] MEDS ORDERED: PATIENTS OWN MEDICATION (Flecainide Acetate 1 TAB) PO SCH (22:00)
[2024-02-05 04:45] LABS: Basophils # (auto) 0.1 10 ^3/uL (0-0.2); Basophils % (auto) 0.7 % (0.0-2.0); Eosinophils # (auto) 0.1 10 ^3/uL (0-0.8); Eosinophils % (auto) 0.8 % (0.0-7.0); Hematocrit 39.1 % (36.0-46.0); Hemoglobin 12.9 g/dL (12.2-16.2); Lymphocytes # (auto) 2.5 10 ^3/uL (0.4-5.4); Lymphocytes % (auto) 34.8 % (10.0-50.0); Mean Corpuscular Hemoglobin 27.6 pg (28.0-32.0); Mean Corpuscular Volume 83.7 fL (80.0-100.0); Monocytes # (auto) 0.9 10 ^3/uL (0-1.3); Neutrophils # (auto) 3.7 10 ^3/uL (1.6-8.6); Neutrophils % (auto) 50.7 % (37.0-80.0); Platelet Count (auto) 196 10^3/uL (140-450); Red Blood Cells 4.68 10^6/uL (4.0-5.20); Red Cell Distribution Width 15.8 % (11.8-14.3); White Blood Cell 7.3 10^3/uL (4.4-10.8)
[2024-02-05 04:58] LABS: Alanine Aminotransferase 11 U/L (7-40); Albumin 4.1 g/dL (3.2-4.8); Alkaline Phosphatase 80 U/L (46-116); Anion Gap 9 (5-15); BUN/Creatinine Ratio 21.7 (10.0-20.0); Bilirubin, Total 0.6 mg/dL (0.2-1.0); Blood Urea Nitrogen 20 mg/dL (9-23); Calcium 9.6 mg/dL (8.7-10.4); Carbon Dioxide 27 mmol/L (20-31); Chloride 106 mmol/L (98-107); Glucose 105 mg/dL (74-106); Potassium 4.1 mmol/L (3.5-5.1); Sodium 142 mmol/L (136-145); Total Protein 6.1 g/dL (5.7-8.2)
[2024-02-05 05:02] LABS: Aspartate Aminotransferase 8 U/L (13-40)
--- NOTE | 2024-02-05 07:30 | ECG ---
[facility] Test Date: 2024-02-04 Test Time: 08:36:38 Pat Name: DENISA CAZARES Department: ER Room: [address] [place] [address] Gender: F Grant Administrator: BASSAM : [id number] Requested By: GUZMAN RIVERA Order Number: [id number] Reading MD: Measurements Intervals [place] Rate: 127 P: 0 VA: 0 QRS: -74 QRSD: 83 T: 86 QT: 338 QTc: 492 Interpretive Statements Junctional tachycardia Left anterior fascicular block Anterior infarct, age indeterminate Please click the below link to view image of tracing.
--- NOTE | 2024-02-05 08:23 | DVHSR ---
APPROVED REPORT EXAM: Two-dimensional and M-mode echocardiogram with Doppler and color Doppler. Blood Pressure: 94/62 mmHg INDICATION EF RISK FACTORS Height: 64, Weight: 158 DIMENSIONS LVDd3.3 (3.8-5.7cm)LA (2D)3.5 (1.9-4.0cm)Aortic Root3.5 (2.0-3.7cm) LVDs2.4 (2.5-4.0cm)LA (MM) (1.9-4.0cm)Aortic Cusp Exc1.1 (1.5-2.0cm) EF (%) 55.0 (55-70%)Rt. Atrium3.8 (1.9-4.0cm)Asc. Aorta cm IVSd1.3 (0.7-1.1cm)RV (D) (1.8-2.4cm) PWd1.5 (0.7-1.1cm) Mitral Valve MitralMitral Stenosis E wave0.68m/sMV Mean GR.mmHg E/A ratio0.02D MVAcm2 Aortic Valve Aortic ValveAortic Stenosis V10.68m/Karissa Mean GR.1mmHg V20.63m/[place] GR.2mmHg LVOT Diameter1.9 (1.8-2.4cm)Doppler AVA3.06cm2 Pulmonic Valve V20.69m/s Other Information Technically limited study due to body habitus. Conclusion Left ventricle: Concentric left ventricular hypertrophy was seen. LVEF was 55%. There was no gross wall motion abnormality. Right ventricle was normal-sized with normal systolic function. Both atria were mildly dilated. Pac ing wire in right-sided chambers were seen. Aortic valve: Aortic valve was trileaflet. There was no aortic insufficiency/stenosis. There was tr iza mitral and tricuspid regurgitation. Pulmonary valve revealed trace insufficiency. As there was no good tricuspid regurgitation jet, right ventricular systolic pressure could not be es timated. There was no pericardial effusion. IVC was normal-sized with normal respiratory variation.
--- NOTE | 2024-02-05 09:31 | DVHINCON2 ---
Date of service: Feb 05, 2024 History of Present Illness HPI Patient is a 73-year-old female who presented to the hospital with palpitations. She is known to our practice from outside and before. She does have history of paroxysmal AFib and also history of SVTs. Her SVTs could become significantly symptomatic in need of adenosine. This time after arrival to Emergency room, patient was found to have SVT but SVT was converted to sinus rhythm later. She mentions that she missed her dose of carvedilol as outpatient. Home Meds Active Scripts Flecainide Acetate (Flecainide Acetate) 100 Mg Tab, 1 TAB PO BID, #60 TAB 5 Refills Prov:MARGARITA MANRIQUE MD 03/22/23 Reported Medications Insulin Glargine (Toujeo Solostar) 300 Unit/Ml Inj, 25 UNIT SC HS, INJ 08/29/23 Diclofenac Sodium (Topical) (Voltaren Arthritis Pain) 1 % Gel, 2 GRAMS TOP Q6HP PRN for PAIN SCALE 1 THRU 6, GEL 08/29/23 Benazepril Hcl (Benazepril Hcl) 5 Mg Tab, 2.5 MG PO DAILY, TAB 08/29/23 Carvedilol (Carvedilol) 25 Mg Tab, 1 TAB PO TID, #180 TAB 1 Refill 08/29/23 Dulaglutide (Trulicity) 1.5 Mg/0.5 Ml Inj, 1.5 MG SC QWEEKLY, INJ 07/03/21 Insulin Lispro (Human) (Humalog) 100 Unit/Ml Inj, 6 UNIT SC AC, INJ 07/03/21 Magnesium Oxide (MAGNESIUM OXIDE) 400 Mg Tab, 1 TAB PO TID, #30 TAB 5 Refills 07/03/21 Empagliflozin (Jardiance) 10 Mg Tab, 25 MG PO DAILY, TAB 07/03/21 Atorvastatin Calcium (ATORVASTATIN CALCIUM) 40 Mg Tab, 1 TAB PO DAILY, #30 TAB 5 Refills 07/03/21 Gabapentin (Gabapentin) 100 Mg Cap, 100 MG PO TID 07/03/21 Apixaban Base (ELIQUIS) 5 Mg Tab, 5 MG PO BID, TAB 07/03/21 Metformin Hydrochloride (Metformin Hcl) 500 Mg Tab, 1000 MG PO IBID for 30 Days, MG 07/03/21 Past Medical History Others Past medical history includes hypertension, hyperlipidemia, diabetes mellitus, old history of colon cancer (on remission), COPD, CKD, history of SVT (repeated episodes in need of adenosine to be controlled), history of paroxysmal A. fib. She has had hysterectomy before. She is status post atrial fibrillation ablation. Family history includes cancer and heart disease. She has had pacemaker (Biotronik) implantation for tachybradycardia syndrome. She did have loop recorder which was explanted on October 11, 2022. 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 Family History: No pertinent Hx Patient Family History: Atrial fibrillation G8 MOTHER, Onset:84 Cardiovascular disease G8 MOTHER, Onset:60 years & older Diabetes mellitus G8 FATHER, Onset:60 years & older FHx: pancreatic cancer G8 FATHER, Onset:60 years & older Heart failure G8 MOTHER, Onset:60 years & older Pancreatic cancer Smoker: No Hx (Negative) Alocohol: Rare Drugs: None Lives with: With family Review of Systems Constitutional: No symptom reported Ears, Nose, & Throat: No symptom reported Eyes: No symptom reported Pulmonary/Respiratory: No symptom reported Cardiovascular: Palpitations Gastrointestinal: No symptom reported All Other Systems 14 point review of system was performed. Relevant findings as per above and as per HPI. Otherwise negative H&P Exam Vital Signs Vital Signs Date Time Temp Pulse Resp B/P (MAP) Pulse Ox O2 Delivery O2 Flow Rate FiO2 02/05/24 08:00 60 02/05/24 07:30 150/65 02/05/24 07:00 11 97 02/04/24 19:52 98.8 98.8 02/04/24 19:52 Room Air* 0 21 General Appeara: Well developed, Obese Head Exam: Normal inspection Eye Exam: bilateral eye PERRL Nasal Exam: Normal inspection Mouth: Normal Inspection Pulmonary/Respiratory: Lungs clear Cardiovascular/Chest: Normal inspection, Regular rate Peripheral Pulses: 2+ carotid (R), 2+ carotid (L), 2+ femoral (R), 2+ femoral (L), 2+ dorsalis pedis (R), 2+ dorsalis pedis (L), 2+ Radial (R), 2+ Radial (L) Abdominal Exam: Normal bowel sounds, Soft Neuro/Mental St: Alert, Oriented Appearance: Appropriate appearance Eye contact/ Speech: Cooperative Labs/Xrays Labs Test 02/05/24 06:32 02/05/24 04:09 02/04/24 08:34 02/04/24 07:59 Range/Units POC Glucose 124 H 70-106 mg/dl White Blood Count 7.3 4.4-10.8 10^3/uL Red Blood Count 4.68 4.0-5.20 10^6/uL Hemoglobin 12.9 12.2-16.2 g/dL Hematocrit 39.1 # 36.0-46.0 % Mean Corpuscular Volume 83.7 80.0-100.0 fL Mean Corpuscular Hemoglobin 27.6 L 28.0-32.0 pg Mean Corpuscular Hemoglobin Concent 33.0 32.0-36.0 g/dL Red Cell Distribution Width 15.8 H 11.8-14.3 % Platelet Count 196 140-450 10^3/uL Mean Platelet Volume 8.8 6.9-10.8 fL Neutrophils (%) (Auto) 50.7 37.0-80.0 % Lymphocytes (%) (Auto) 34.8 10.0-50.0 % Monocytes (%) (Auto) 13.0 H 0.0-12.0 % Eosinophils (%) (Auto) 0.8 0.0-7.0 % Basophils (%) (Auto) 0.7 0.0-2.0 % Neutrophils # (Auto) 3.7 1.6-8.6 10 ^3/uL Lymphocytes # (Auto) 2.5 0.4-5.4 10 ^3/uL Monocytes # (Auto) 0.9 0-1.3 10 ^3/uL Eosinophils # (Auto) 0.1 0-0.8 10 ^3/uL Basophils # (Auto) 0.1 0-0.2 10 ^3/uL Nucleated Red Blood Cells 0.0 % Sodium Level 142 # 136-145 mmol/L Potassium Level 4.1 3.5-5.1 mmol/L Chloride Level 106 98-107 mmol/L Carbon Dioxide Level 27 20-31 mmol/L Anion Gap 9 5-15 Blood Urea Nitrogen 20 9-23 mg/dL Creatinine 0.92 0.550-1.02 mg/dL Glomerular Filtration Rate Calc 65 >90 mL/min BUN/Creatinine Ratio 21.7 H 10.0-20.0 Serum Glucose 105 74-106 mg/dL Calcium Level 9.6 8.7-10.4 mg/dL Total Bilirubin 0.6 0.2-1.0 mg/dL Aspartate Amino Transferase (AST) 8 L 13-40 U/L Alanine Aminotransferase (ALT) 11 7-40 U/L Alkaline Phosphatase 80 46-116 U/L Total Protein 6.1 5.7-8.2 g/dL Albumin 4.1 3.2-4.8 g/dL Urine Color Light-yellow Yellow Urine Clarity Clear Clear Urine pH 5.5 5.0-9.0 Urine Specific [place] 1.031 1.001-1.035 Urine Protein Trace H Negative Urine Ketones Negative Negative Urine Blood Negative Negative /uL Urine Nitrite Negative Negative Urine Bilirubin Negative Negative Urine Urobilinogen Normal Negative mg/dL Urine Leukocyte Esterase Negative Negative /uL Urine RBC 2 0 - 4 /hpf Urine WBC 7 0 - 5 /hpf Urine Squamous Epithelial Cells Few <5 /hpf Urine Bacteria None seen None Seen /hpf Urine Glucose 4+ H Normal mg/dL Hemoglobin A1c 7.0 H <5.7 % A1C Phosphorus Level 3.7 2.4-5.1 mg/dL Magnesium Level 2.0 1.6-2.6 mg/dL Troponin I High Sensitivity 4 </=34 ng/L Assessment/Plan Plan Patient is a 73-year-old female who presented to the hospital with palpitations. She is known to our practice from outside and before. She does have history of paroxysmal AFib and also history of SVTs. Her SVTs could become significantly symptomatic in need of adenosine. This time after arrival to Emergency room, patient was found to have SVT but SVT was converted to sinus rhythm later. She mentions that she missed her dose of carvedilol as outpatient. She had pacemaker implantation (Biotronik) on October 05, 2022 for tachybradycardia syndrome. She was recently seen in the office. In exam, she is lying comfortably in bed. Mucosa is pink and wet. There is no carotid bruit. There is no goiter. Not using accessory muscles of breathing. Chest: Clear to auscultation. Cardiac: Regular regular, no thrill/gallop/murmur. Abdomen: Soft, nontender, no hepatomegaly. No gross mass. Extremities: No edema. Dorsalis pedis is 2+ bilateral Past medical history includes hypertension, hyperlipidemia, diabetes mellitus, old history of colon cancer (on remission), COPD, CKD, history of SVT (repeated episodes in need of adenosine to be controlled), history of paroxysmal A. fib. She has had hysterectomy before. She is status post atrial fibrillation ablation. Family history includes cancer and heart disease. She has had pacemaker (Biotronik) implantation for tachybradycardia syndrome. She did have loop recorder which was explanted on October 11, 2022. 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 Echocardiogram of April 2021 (performed in the office) revealed preserved systolic function, no specific valvular disease Echocardiogram of July 03, 2021 revealed mild concentric left ventricular hypertrophy, ejection fraction of 60 to 65%, no wall motion abnormality, normal diastolic and trivial MR/TR Echocardiogram of April 26, 2022 revealed ejection fraction of 55 to 60%, mild concentric left ventricular hypertrophy Echocardiogram of September 30, 2022 revealed ejection fraction of 55 to 60%, mild concentric left ventricular hypertrophy. Echocardiogram of revealed: mild concentric LVH, LVEF of 65 to 70%, Pacing wire in right side Echocardiogram of August 28, 2023 revealed technically difficult study, ejection fraction of significant 65-70%, mild biatrial enlargement and trace mitral regurgitation Creatinine: 1.05 - 0.92 Troponin (high sensitive): 4 Potassium: 4.9 - 4.1 Chest x-ray revealed: EKG revealed SVT. Telemetry revealed episodes of SVT followed by sinus rhythm. Patient is a 73-year-old female who presented with palpitation. Review of the EKG was in favor of episodes of SVT. It is of note that the patient does have history of paroxysmal A-fib for which she has had ablation also. She does have a pacemaker (Biotronik). May consider SVT ablation later. Patient had not been compliant with carvedilol dosage (it should be t.i.d. 25 mg) which could have contributed to the clinical picture Tachyarrhythmia SVT Paroxysmal A-fib Dizziness Status post atrial fibrillation ablation Hypertension Hyperlipidemia Diabetes mellitus Status post pacemaker implantation Cardiac suggestion for care: Managed in Tele Follow-up electrolytes and kidney function tests and correct abnormalities Keep potassium above 4 magnesium above 2 Carvedilol: 25 mg TID Flecainide: 100 mg twice daily Full anticoagulation (on Eliquis) Counseled to be compliant with medications Cardiac vidal, can be followed as outpatient Further evaluation and management depends on the above and clinical course A total of 75 minutes was spent reviewing the patient record, examining the patient, making a diagnostic and therapeutic plan, discussing this plan with medical personnel, following up on diagnostic studies and following the patient for clinical stability excluding any and all procedures. At least 50% of this time was spent in direct, [id number] contact. Thank you for allowing me to participate in this patient's care. Further recommendations will depend on patient's clinical course. Please do not hesitate to contact me if you have any questions or concerns. This medical document was created using electronic medical record system with [employer] computerized dictation system. Although this document has been carefully reviewed, there may still be some phonetic and typographical errors. These areas are purely typographical due to the imperfection of the software programs, and do not reflect any compromise in the patient's medical care. Plan discussed with: Patient, Other (nurse) JACQUELYN JENSEN MD Feb 05, 2024 09:31
[2024-02-05] MEDS ORDERED: PATIENTS OWN MEDICATION (Atorvastatin Calcium 1 TAB) PO SCH (10:00)
[2024-02-05] MEDS ORDERED: BENAZEPRIL HCL 2.5 MG PO SCH (10:00)
[2024-02-05] MEDS ORDERED: ENOXAPARIN SOD 40 MG/0.4 ML SYRINGE SC SCH (10:00)
[2024-02-05] MEDS: EMPAGLIFLOZIN 10 MG TAB PO SCH (10:11)
[2024-02-05] MEDS: ASPirin 81 mg TAB PO SCH (10:11)
[2024-02-05 10:28] VITALS: PULSE 62; RESP 62; O2SAT 96
[2024-02-05] MEDS ORDERED: CARV25TA55 PO (14:22)
--- NOTE | 2024-02-05 14:23 | DVHDS2 ---
Discharge Summary Date of Admission Feb 04, 2024 at 11:41 Date of Discharge: Feb 05, 2024 Labs/Diagnostic Data: Laboratory Results Test 02/05/24 11:42 02/05/24 04:09 02/04/24 08:34 02/04/24 07:59 POC Glucose 189 mg/dl (70-106) White Blood Count 7.3 10^3/uL (4.4-10.8) Red Blood Count 4.68 10^6/uL (4.0-5.20) Hemoglobin 12.9 g/dL (12.2-16.2) Hematocrit 39.1 % (36.0-46.0) Mean Corpuscular Volume 83.7 fL (80.0-100.0) Mean Corpuscular Hemoglobin 27.6 pg (28.0-32.0) Mean Corpuscular Hemoglobin Concent 33.0 g/dL (32.0-36.0) Red Cell Distribution Width 15.8 % (11.8-14.3) Platelet Count 196 10^3/uL (140-450) Mean Platelet Volume 8.8 fL (6.9-10.8) Neutrophils (%) (Auto) 50.7 % (37.0-80.0) Lymphocytes (%) (Auto) 34.8 % (10.0-50.0) Monocytes (%) (Auto) 13.0 % (0.0-12.0) Eosinophils (%) (Auto) 0.8 % (0.0-7.0) Basophils (%) (Auto) 0.7 % (0.0-2.0) Neutrophils # (Auto) 3.7 10 ^3/uL (1.6-8.6) Lymphocytes # (Auto) 2.5 10 ^3/uL (0.4-5.4) Monocytes # (Auto) 0.9 10 ^3/uL (0-1.3) Eosinophils # (Auto) 0.1 10 ^3/uL (0-0.8) Basophils # (Auto) 0.1 10 ^3/uL (0-0.2) Nucleated Red Blood Cells 0.0 % Sodium Level 142 mmol/L (136-145) Potassium Level 4.1 mmol/L (3.5-5.1) Chloride Level 106 mmol/L (98-107) Carbon Dioxide Level 27 mmol/L (20-31) Anion Gap 9 (5-15) Blood Urea Nitrogen 20 mg/dL (9-23) Creatinine 0.92 mg/dL (0.550-1.02) Glomerular Filtration Rate Calc 65 mL/min (>90) BUN/Creatinine Ratio 21.7 (10.0-20.0) Serum Glucose 105 mg/dL (74-106) Calcium Level 9.6 mg/dL (8.7-10.4) Total Bilirubin 0.6 mg/dL (0.2-1.0) Aspartate Amino Transferase (AST) 8 U/L (13-40) Alanine Aminotransferase (ALT) 11 U/L (7-40) Alkaline Phosphatase 80 U/L (46-116) Total Protein 6.1 g/dL (5.7-8.2) Albumin 4.1 g/dL (3.2-4.8) Urine Color Light-yellow (Yellow) Urine Clarity Clear (Clear) Urine pH 5.5 (5.0-9.0) Urine Specific [place] 1.031 (1.001-1.035) Urine Protein Trace (Negative) Urine Ketones Negative (Negative) Urine Blood Negative /uL (Negative) Urine Nitrite Negative (Negative) Urine Bilirubin Negative (Negative) Urine Urobilinogen Normal mg/dL (Negative) Urine Leukocyte Esterase Negative /uL (Negative) Urine RBC 2 /hpf (0 - 4) Urine WBC 7 /hpf (0 - 5) Urine Squamous Epithelial Cells Few /hpf (<5) Urine Bacteria None seen /hpf (None Seen) Urine Glucose 4+ mg/dL (Normal) Hemoglobin A1c 7.0 % A1C (<5.7) Phosphorus Level 3.7 mg/dL (2.4-5.1) Magnesium Level 2.0 mg/dL (1.6-2.6) Troponin I High Sensitivity 4 ng/L (</=34) Other Laboratory Tests 02/05/24 04:09 Brief Hx & Hospital Course: Year old female with known SVT admitted for palpitation and from SVT. In ED she converted back to sinus rhythm. She reported noncompliance for the Coreg 25 mg t.i.d. for the past couple of days which initiate this episode. Patient was seen by Cardiology and was cleared for follow up as an outpatient. Condition at Discharge: Good Final Diagnosis/Problems List SVT Discharge Disposition: Home Discharge Instruct/Medications Diet: Cardiac 2g Na,low cholest Activity: No Restrictions, As Tolerated Follow Up/Referral: cardiology Medications: coreg 25 TID flecanide 100 daily 36 Discharge Statement: "Patient was advised to return to the ER or call 911 if any headaches, dizziness, shortness of breath, chest pain, abdominal pain, bleeding, fevers, or worsening of medical condition. Patient was counseled about treatment plan, medications, possible side effects, patientverbalized understanding. All questions were answered to the best of my ability. This discharge took greater then 30 minutes in planning, reviewing documentation, counseling the patient, and discussing with other team members." ASSESSMENT ASSESSMENT Assessment SVT Tachyarrhythmia Paroxysmal A-fib Dizziness Status post atrial fibrillation ablation Hypertension Hyperlipidemia Diabetes mellitus Status post pacemaker implantation Date of Service: Feb 05, 2024 Billing Provider: ASHLEY AVENDANO MD Common Visit Codes: 33571-QML/OBS DISCH DAY >30min ASHLEY AVENDANO MD Feb 05, 2024 14:23
[2024-02-05 16:31] VITALS: BP 115/86; PULSE 63; RESP 18; TEMP 98.3; O2SAT 95
[2024-02-05 18:30] VITALS: BP 144/62; PULSE 60; RESP 16; O2SAT 97
[2024-02-06] MEDS ORDERED: BENAZEPRIL HCL 10 MG TAB PO SCH (10:00)
== END 2024-02-05 18:35 | disposition home or self-care (01) | DRG 310 ==
LOC: ER 07:36 → TELE 11:41
PROVIDERS: ADMIT Nurse Practitioner Family; ATTEND Student in an Organized Health Care Education/Training Program
DX: I47.10 Supraventricular tachycardia, unspecified (principal); E78.5 Hyperlipidemia, unspecified; J44.9 Chronic obstructive pulmonary disease, unspecified; I48.0 Paroxysmal atrial fibrillation; I12.9 Hypertensive chronic kidney disease with stage 1 through stage 4 chronic kidney disease, or unspecified chronic kidney disease; N18.9 Chronic kidney disease, unspecified; E11.22 Type 2 diabetes mellitus with diabetic chronic kidney disease; Z95.0 Presence of cardiac pacemaker; Z85.038 Personal history of other malignant neoplasm of large intestine; Z90.710 Acquired absence of both cervix and uterus; Z82.49 Family history of ischemic heart disease and other diseases of the circulatory system; Z79.4 Long term (current) use of insulin; Z79.899 Other long term (current) drug therapy; Z79.84 Long term (current) use of oral hypoglycemic drugs; Z79.01 Long term (current) use of anticoagulants; Z80.0 Family history of malignant neoplasm of digestive organs; Z83.3 Family history of diabetes mellitus; T44.7X5A Adverse effect of beta-adrenoreceptor antagonists, initial encounter; Z91.199 Patient's noncompliance with other medical treatment and regimen due to unspecified reason; E11.65 Type 2 diabetes mellitus with hyperglycemia; I95.2 Hypotension due to drugs
CPT/HCPCS: 36415; 71045; 80048; 80053; 81001; 82962; 83036; 83735; 84100; 84484; 85025; 93005; 93306; 99291; G0378; J1815

== ENCOUNTER 2024-09-29 22:37 | Inpatient (IN) | payer OTHER ==
[~2024-09-29] VITALS: Ht 162.6 cm; Wt 93.5 kg
--- NOTE | 2024-09-29 23:35 | ED.PDOC ---
HPI Comments 73-year-old female with a history of COPD, hypertension, AFib, diabetes, hyperlipidemia, and a pacemaker presents to ED with a chief complaint of left- sided chest palpitations with the associated lightheadedness. Patient states her symptoms started at approximately 4:30 p.m. this afternoon, and has since found no alleviating factors at this time. Patient's EKG was noted to be [address] Patient denies any abdominal pain, chest pain, blurry vision, photophobia, urinary symptoms, or any other associated factors, symptoms at this time. PHYSICAL EXAM: General: Awake, alert and oriented. No acute distress. Skin: Skin in warm, dry and intact. Appropriate color for ethnicity. HEENT: The head is normocephalic and atraumatic. Conjunctivae are clear without exudates or hemorrhage. Sclera is non-icteric. EOM are intact. No signs of nystagmus. Eyelids are normal in appearance without swelling or lesions. Oral mucosa is pink and moist Neck: The neck is supple with normal range of motion. No JVD. Cardiac: Tachycardia, regular rhythm. No murmurs. Respiratory: No signs of respiratory distress. Lung sounds are clear in all lobes bilaterally without rales, rhonchi, or wheezes. Abdominal: Abdomen is soft, non-tender without distention, guarding or rigidity. Bowel sounds are present and normoactive in all four quadrants. Extremities: Upper and lower extremities are atraumatic in appearance without deformity or edema. Neurological: The patient is awake, alert and oriented to person, place, and time with normal speech. Speech is clear. There is no facial asymmetry. Psychiatric: Appropriate mood and affect. Good judgement and insight. REVIEW OF SYSTEMS: No fever, no chills, or fatigue HEENT: No sore throat, no earache, no congestion, no neck pain. Cardiac: Tachycardia, palpitations. Lungs: No shortness of breath, no cough. GI: No nausea, no vomiting, no diarrhea, no constipation, no abdominal pain : No dysuria, frequency, or urgency. No hematuria. Musculoskeletal: No joint pain , no joint swelling, no extremity edema. Skin: No rash, no itching. Neuro: No headache, dizziness, no weakness Chief Complaint: Palpitations Time Seen by MD: 23:31 Primary Care Provider: Dr. Menjivar, Dr. Sylvester Reviewed Notes: Nurses Notes, Medications, Allergies Allergies: Coded Allergies: No Known Drug Allergy (Verified Allergy, Unknown, 04/26/20) Home Meds Active Scripts Carvedilol (Carvedilol) 25 Mg Tab, 1 TAB PO TID for 30 Days, #90 TAB 1 Refill Prov:ASHLEY AVENDANO MD 02/05/24 Flecainide Acetate (Flecainide Acetate) 100 Mg Tab, 1 TAB PO BID, #60 TAB 5 Refills Prov:MARGARITA MANRIQUE MD 03/22/23 Reported Medications Insulin Glargine (Toujeo Solostar) 300 Unit/Ml Inj, 25 UNIT SC HS, INJ 08/29/23 Diclofenac Sodium (Topical) (Voltaren Arthritis Pain) 1 % Gel, 2 GRAMS TOP Q6HP PRN for PAIN SCALE 1 THRU 6, GEL 08/29/23 Benazepril Hcl (Benazepril Hcl) 5 Mg Tab, 2.5 MG PO DAILY, TAB 08/29/23 Dulaglutide (Trulicity) 1.5 Mg/0.5 Ml Inj, 1.5 MG SC QWEEKLY, INJ 07/03/21 Insulin Lispro (Human) (Humalog) 100 Unit/Ml Inj, 6 UNIT SC AC, INJ 07/03/21 Magnesium Oxide (MAGNESIUM OXIDE) 400 Mg Tab, 1 TAB PO TID, #30 TAB 5 Refills 07/03/21 Empagliflozin (Jardiance) 10 Mg Tab, 25 MG PO DAILY, TAB 07/03/21 Atorvastatin Calcium (ATORVASTATIN CALCIUM) 40 Mg Tab, 1 TAB PO DAILY, #30 TAB 5 Refills 07/03/21 Gabapentin (Gabapentin) 100 Mg Cap, 100 MG PO TID 07/03/21 Apixaban Base (ELIQUIS) 5 Mg Tab, 5 MG PO BID, TAB 07/03/21 Metformin Hydrochloride (Metformin Hcl) 500 Mg Tab, 1000 MG PO IBID for 30 Days, MG 07/03/21 Information Source: Patient Mode of Arrival: Ambulatory Severity: Moderate Timing: Hours Duration: Since onset, Hours Prehospital treatment: None Location: Chest (L) Radiation: No Radiation Onset: At Rest Cardiac Risk Factors: Hyperlipidemia, HTN, Diabetes PE Risk Factors: None History of: None Modifying Factors: Exertion Associated Signs and Symptoms: Palpitations Past Medical History PAST MEDICAL HISTORY: AFIB, Cancer, COPD, DM, High Lipids, HTN Surgical History: Hernia Repair, Hysterectomy, Pacemaker WINDOWS SUPPORT ENGINEER History: No Pertinent WINDOWS SUPPORT ENGINEER History Family History Family History: Family hx of Cancer, Family hx of heart [place] Social History Smoker: Non-Smoker Alcohol: Occasionally Drugs: Denies Drug Use Lives In: Home EKG EKG : Pulse Rate (adult): 133 [place]: LAD Cardiac Rhythm: ST Block: None Hypertrophy: None ST: Normal EKG EKG : Pulse Rate (adult): 130 [place]: Normal Cardiac Rhythm: JT Block: None Hypertrophy: None ST: Normal Was a procedure done? Was a procedure done?: No CP Differential Dx Differential Diagnosis: A-fib, Angina, Anxiety / Panic Attack, Electrolyte Disorder, Pacemaker Malfunction, Pulmonary Embolus Differential Diagnosis: HTN Accelerated, HTN Encephalopathy Differential Diagnosis: Angina, Chest Wall Pain, Cholelithiasis, Esophageal reflux/spasm, Gastritis, Pericarditis, Pneumothorax, Pulmonary Embolus X-Ray, Labs, Meds, VS Vital Signs Date Time Temp Pulse Resp B/P (MAP) Pulse Ox O2 Delivery O2 Flow Rate FiO2 09/30/24 01:59 130 09/30/24 01:49 130 09/29/24 23:57 136 09/29/24 23:35 133 09/29/24 22:48 133 09/29/24 22:44 97.7 138 20 146/100 98 97.7 Lab Test 09/30/24 01:38 09/30/24 00:25 09/29/24 23:22 Range/Units Troponin I High Sensitivity 17 14 12 </=34 ng/L White Blood Count 8.6 4.4-10.8 10^3/uL Red Blood Count 5.51 H 4.0-5.20 10^6/uL Hemoglobin 15.1 12.2-16.2 g/dL Hematocrit 45.6 36.0-46.0 % Mean Corpuscular Volume 82.7 80.0-100.0 fL Mean Corpuscular Hemoglobin 27.4 L 28.0-32.0 pg Mean Corpuscular Hemoglobin Concent 33.1 32.0-36.0 g/dL Red Cell Distribution Width 16.6 H 11.8-14.3 % Platelet Count 217 140-450 10^3/uL Mean Platelet Volume 9.7 6.9-10.8 fL Neutrophils (%) (Auto) 64.1 37.0-80.0 % Lymphocytes (%) (Auto) 22.5 10.0-50.0 % Monocytes (%) (Auto) 12.2 H 0.0-12.0 % Eosinophils (%) (Auto) 0.5 0.0-7.0 % Basophils (%) (Auto) 0.7 0.0-2.0 % Neutrophils # (Auto) 5.5 1.6-8.6 10 ^3/uL Lymphocytes # (Auto) 1.9 0.4-5.4 10 ^3/uL Monocytes # (Auto) 1.0 0-1.3 10 ^3/uL Eosinophils # (Auto) 0 0-0.8 10 ^3/uL Basophils # (Auto) 0.1 0-0.2 10 ^3/uL Nucleated Red Blood Cells 0.1 % Sodium Level 137 136-145 mmol/L Potassium Level 5.0 3.5-5.1 mmol/L Chloride Level 102 98-107 mmol/L Carbon Dioxide Level 27 20-31 mmol/L Anion Gap 8 5-15 Blood Urea Nitrogen 24 H 9-23 mg/dL Creatinine 1.29 H 0.550-1.02 mg/dL Glomerular Filtration Rate Calc 43 >90 mL/min BUN/Creatinine Ratio 18.6 10.0-20.0 Serum Glucose 250 H 74-106 mg/dL Calcium Level 9.7 8.7-10.4 mg/dL Current Medications Medications (Trade) Dose Ordered Sig/Jeff Route Start Time Stop Time Status Last Admin Sodium Chloride 1,000 ml @ 1,000 mls/hr Q1H ONCE IV 09/30/24 00:45 09/30/24 01:44 DC 09/30/24 00:54 Time of 1ST Reevaluation: 00:00 Reevaluation 1ST: Unchanged Patient Education/Counseling: Diagnosis, Treatment, Need For Follow Up Family Education/Counseling: No Family Present SEPSIS Sepsis Screen Date sepsis recognized/suspect: Sep 29, 2024 Time Sepsis recognized/suspect: 2249 Recent Procedure: No On Antibiotic Therapy: No Respiratory Rate >20: No Heart Rate >90: Yes Temp<36 C (96.8 F) or >38.3 C: No SBP <90 or MAP <65 mmHG: No New Acute Mental Status Change: No Is the patient on CPAP, BIPAP,: No Physician Orders Installation Supervisor (09/30/24 ) Vital Signs Date Time Temp Pulse Resp B/P (MAP) Pulse Ox O2 Delivery O2 Flow Rate FiO2 09/30/24 01:59 130 09/30/24 01:49 130 09/29/24 23:57 136 09/29/24 23:35 133 09/29/24 22:48 133 09/29/24 22:44 97.7 138 20 146/100 98 97.7 Laboratory Tests Test 09/29/24 23:22 White Blood Count 8.6 10^3/uL (4.4-10.8) Departure 1 Departure Time of Disposition: 01:41 Impression: Primary Impression: HILTON (acute kidney injury) Additional Impressions: Tachycardia Hyperglycemia Disposition: LEFT AWOL/ELOPED Condition: Guarded Critical Care Note Critical Care Time?: No Stability Stability form required: No Heart Score Heart Score: Heart Score Response (Comments) Value History N/A 0 EKG N/A 0 Age N/A 0 Risk Factors N/A 0 Troponin N/A 0 Total 0 I personally scribed for CRISTHIAN GERMAN MD ([email or web address]) on 09/29/24 at 23:35. Electronically submitted by Hayes Gutierrez ([email or web address]). I personally scribed for CRISTHIAN GERMAN MD ([email or web address]) on 09/30/24 at 00:21. Electronically submitted by Hayes Gutierrez ([email or web address]). I personally scribed for CRISTHIAN GERMAN MD ([email or web address]) on 09/30/24 at 01:59. Electronically submitted by Hayes Gutierrez [email or web address]). CRISTHIAN GERMAN MD Sep 29, 2024 23:35
[2024-09-30] MEDS: SODIUM CHLORIDE 0.9% 1,000 ML IV ONE (00:54)
[2024-09-30 01:28] LABS: Chloride 102 mmol/L (98-107); Potassium 5.0 mmol/L (3.5-5.1); Sodium 137 mmol/L (136-145)
[2024-09-30 01:29] LABS: Anion Gap 8 (5-15); Calcium 9.7 mg/dL (8.7-10.4); Carbon Dioxide 27 mmol/L (20-31)
[2024-09-30 01:34] LABS: BUN/Creatinine Ratio 18.6 (10.0-20.0); Hematocrit 45.6 % (36.0-46.0); Hemoglobin 15.1 g/dL (12.2-16.2); Mean Corpuscular Hemoglobin 27.4 pg (28.0-32.0); Mean Corpuscular Volume 82.7 fL (80.0-100.0); Nucleated Red Blood Cells % 0.1 %
[2024-09-30 01:35] LABS: Blood Urea Nitrogen 24 mg/dL (9-23); Glucose 250 mg/dL (74-106)
--- NOTE | 2024-09-30 03:30 | ECG ---
[facility] Test Date: 2024-09-29 Test Time: 23:57:19 Pat Name: DENISA CAZARES Department: Room: Gender: F [employer] Teacher: ALVARO : 1950 Requested By: EMERGENCY EMERGENCY Order Number: [id number] Reading MD: Measurements Intervals [place] Rate: 136 P: 0 MA: 0 QRS: -32 QRSD: 80 T: 94 QT: 304 QTc: 458 Interpretive Statements Junctional tachycardia Left axis deviation Anterior infarct, old Nonspecific T abnormalities, lateral leads Please click the below link to view image of tracing.
--- NOTE | 2024-09-30 03:31 | ECG ---
[facility] Test Date: 2024-09-30 Test Time: 01:49:25 Pat Name: DENISA CAZARES Department: Room: Gender: F Inclusion Internship: ALVARO : 1950 Requested By: EMERGENCY EMERGENCY Order Number: [id number] Reading MD: Measurements Intervals [place] Rate: 130 P: 0 MT: 0 QRS: 5 QRSD: 102 T: 116 QT: 323 QTc: 475 Interpretive Statements Junctional tachycardia Anterior infarct, old Nonspecific T abnormalities, lateral leads Please click the below link to view image of tracing.
[2024-09-30] MEDS ORDERED: SODIUM CHLORIDE 0.9% 1,000 ML IV SCH (04:30)
[2024-09-30] MEDS ORDERED: MORPHINE SULFATE INJ 2 MG/ml SYRG IV PRN (04:30)
[2024-09-30] MEDS ORDERED: ACETAMINOPHEN 325 MG TAB PO PRN (04:30)
[2024-09-30] MEDS ORDERED: NITROGLYCERIN 0.4 MG SL TAB SL PRN (04:30)
[2024-09-30] MEDS ORDERED: ONDANSETRON HCL 4 MG/2 ML VIAL IV PRN (04:30)
--- NOTE | 2024-09-30 04:34 | DVHHPRES ---
History of Present Illness Resident Creating Document: FAWAD COWAN RESIDENT Reason for Visit: Palpitation History of Present Illness 73-year-old female past medical history significant for atrial fibrillation status post ablation, COPD, diabetes, hyperlipidemia, hypertension, CAD, hysterectomy, status post pacemaker in-situ, comes to the ED with new onset of elevated heart rate, palpitation, and lightheadedness. Patient had similar multiple hospital/ED visits with similar episodes. 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 Past Medical History atrial fibrillation status post ablation, COPD, diabetes, hyperlipidemia, hypertension, CAD, Review of Systems Review of Systems CONSTITUTIONAL: Denies weight loss, fever and chills. HEENT: Denies changes in vision and hearing. RESPIRATORY: Denies SOB and cough. CV: Admits palpitations and denies chest pain. GI: Denies abdominal pain, nausea, vomiting and diarrhea. : Denies dysuria and urinary frequency. MSK: Denies myalgia and joint pain. SKIN: Denies rash and pruritus. NEUROLOGICAL: Denies headache Allergies: Coded Allergies: No Known Drug Allergy (Verified Allergy, Unknown, 04/26/20) Medications Current Medications Medications Dose Ordered Sig/Jeff Route Start Time Stop Time Status Last Admin Dose Admin Sodium Chloride 10 ml Q8HR IV 09/30/24 06:00 UNV Sodium Chloride 1,000 ml @ 100 mls/hr Q10H IV 09/30/24 04:30 UNV Ondansetron HCl 4 mg Q4HP PRN IV 09/30/24 04:30 UNV Acetaminophen 650 mg Q6HP PRN PO 09/30/24 04:30 UNV Nitroglycerin 0.4 mg Q5MINP PRN SL 09/30/24 04:30 UNV Morphine Sulfate 2 mg Q30M PRN IV 09/30/24 04:30 UNV Apixaban 5 mg BID PO 09/30/24 10:00 UNV Exam Vital Signs Vital Signs Date Time Temp Pulse Resp B/P (MAP) Pulse Ox O2 Delivery O2 Flow Rate FiO2 09/30/24 01:59 130 09/29/24 22:44 97.7 20 146/100 98 97.7 Exam General: Patient alert and oriented in person, place and time. Patient following commands. HEENT: Normocephalic, atraumatic, moist mucous membranes Lungs: Clear lungs bilaterally, vesicular murmurs present in almost all lung faria, no associated crackles or wheezes. Cardiovascular: Normal heart sounds S1 and S2 with no associated murmurs Abdomen: Abdomen nondistended, there is no pain to palpation in any of the abdo sarah quadrants, no palpable masses. Extremities: There is no peripheral edema present at the lower extremities. Skin: No rashes or pruritus, there is no sacral edema present at this time. Neurological: Intact cranial nerves with no focal neurologic deficits Labs/Xrays Labs Test 09/30/24 01:38 09/29/24 23:22 Range/Units Troponin I High Sensitivity 17 </=34 ng/L White Blood Count 8.6 4.4-10.8 10^3/uL Red Blood Count 5.51 H 4.0-5.20 10^6/uL Hemoglobin 15.1 12.2-16.2 g/dL Hematocrit 45.6 36.0-46.0 % Mean Corpuscular Volume 82.7 80.0-100.0 fL Mean Corpuscular Hemoglobin 27.4 L 28.0-32.0 pg Mean Corpuscular Hemoglobin Concent 33.1 32.0-36.0 g/dL Red Cell Distribution Width 16.6 H 11.8-14.3 % Platelet Count 217 140-450 10^3/uL Mean Platelet Volume 9.7 6.9-10.8 fL Neutrophils (%) (Auto) 64.1 37.0-80.0 % Lymphocytes (%) (Auto) 22.5 10.0-50.0 % Monocytes (%) (Auto) 12.2 H 0.0-12.0 % Eosinophils (%) (Auto) 0.5 0.0-7.0 % Basophils (%) (Auto) 0.7 0.0-2.0 % Neutrophils # (Auto) 5.5 1.6-8.6 10 ^3/uL Lymphocytes # (Auto) 1.9 0.4-5.4 10 ^3/uL Monocytes # (Auto) 1.0 0-1.3 10 ^3/uL Eosinophils # (Auto) 0 0-0.8 10 ^3/uL Basophils # (Auto) 0.1 0-0.2 10 ^3/uL Nucleated Red Blood Cells 0.1 % Sodium Level 137 136-145 mmol/L Potassium Level 5.0 3.5-5.1 mmol/L Chloride Level 102 98-107 mmol/L Carbon Dioxide Level 27 20-31 mmol/L Anion Gap 8 5-15 Blood Urea Nitrogen 24 H 9-23 mg/dL Creatinine 1.29 H 0.550-1.02 mg/dL Glomerular Filtration Rate Calc 43 >90 mL/min BUN/Creatinine Ratio 18.6 10.0-20.0 Serum Glucose 250 H 74-106 mg/dL Calcium Level 9.7 8.7-10.4 mg/dL SEPSIS Sepsis Screen Date sepsis recognized/suspect: Sep 29, 2024 Time Sepsis recognized/suspect: 2249 Recent Procedure: No On Antibiotic Therapy: No Respiratory Rate >20: No Heart Rate >90: Yes Temp<36 C (96.8 F) or >38.3 C: No SBP <90 or MAP <65 mmHG: No New Acute Mental Status Change: No Is the patient on CPAP, BIPAP,: No Physician Orders Electrocardigram (09/29/24 23:43) Advertising Assistant (09/30/24 ) Admit (09/30/24 04:27) Code Status (09/30/24 04:27) Sodium Chloride Lock (Saline Lock Ns) (09/30/24 06:00) Sodium Chloride 0.9% (09/30/24 04:30) Ondansetron Hcl (Zofran) (09/30/24 04:30) Complete Blood Count (09/30/24 04:27) Comprehensive Metabolic Panel (09/30/24 04:27) Cardiac Diet-2gna,Lofat,Lochol (09/30/24 Breakfast) Acetaminophen Tablet (Tylenol Tablet) (09/30/24 04:30) Nitroglycerin Sublingual (Ntrostat Subli (09/30/24 04:30) Morphine Sulfate Injection (09/30/24 04:30) Oxygen By Nasal Cannula (09/30/24 04:27) Stat Ekg For Chest Pain (09/30/24 04:27) Notify Md Of Changes From Base (09/30/24 04:27) Upholstery Estimator For 24 Hours (09/30/24 04:27) Emergency Dysrhythmia Protocol (09/30/24 04:27) Rhythm Strips Once Every Shift (09/30/24 04:27) Echo 2d Mode Cardiac Dop (09/30/24 04:31) Apixaban (Eliquis) (09/30/24 10:00) Empagliflozin (Jardiance) (09/30/24 10:00) Gabapentin Capsule (Neurontin Capsule) (09/30/24 06:00) (Nf) Atorvastatin Calcium (09/30/24 10:00) (Nf) Carvedilol (09/30/24 06:00) Vital Signs Date Time Temp Pulse Resp B/P (MAP) Pulse Ox O2 Delivery O2 Flow Rate FiO2 09/30/24 01:59 130 09/30/24 01:49 130 09/29/24 23:57 136 09/29/24 23:35 133 09/29/24 22:48 133 09/29/24 22:44 97.7 138 20 146/100 98 97.7 Laboratory Tests Test 09/29/24 23:22 White Blood Count 8.6 10^3/uL (4.4-10.8) Medications Medications Dose Ordered Sig/Jeff Route Start Time Stop Time Status Last Admin Dose Admin Sodium Chloride 1,000 ml @ 1,000 mls/hr Q1H ONCE IV 09/30/24 00:45 09/30/24 01:44 DC 09/30/24 00:54 1,000 MLS/HR Assessment/Plan Assessment/Plan # SVT # Palpitations - continue carvedilol 12.5mg BID, - S/P placement of pacemaker -Patient also had ablation done down the hill, patient did not remember the doctor's name. - telemetry # HILTON secondary to vasomotor nephropathy - - NS 50ml/h, -monitor renal function # HTN - Losartan 25mg, carvedilol 12.5mg BID # Chronic AFib - eliquis 5mg BID # Hyperlipidemia -atorvastatin to 40mg # Diabetes mellitus type 2 - mild ISS # Diabetic neuropathjy - gabapentin 100mg TID Goal of care discussed patient for 37 minutes: Full code Plan discussed with Dr. Beckford Plan discussed with: Patient My Orders Orders - FAWAD COWAN RESIDENT Procedure Category Date Status Time Admit ADMIT 09/30/24 Transmitted 04:27 Code Status CODE 09/30/24 Transmitted 04:27 Sodium Chloride Lock PHA 09/30/24 Logged (Saline Lock Ns) 06:00 Sodium Chloride 0.9% PHA 09/30/24 Logged 04:30 Ondansetron Hcl PHA 09/30/24 Logged (Zofran) 04:30 Complete Blood Count LAB 09/30/24 Logged 04:27 Comprehensive LAB 09/30/24 Logged Metabolic Panel 04:27 Cardiac DIET 09/30/24 Transmitted Diet-2gna,Lofat,Lochol Breakfast Acetaminophen Tablet PHA 09/30/24 Logged (Tylenol Tablet) 04:30 Nitroglycerin PHA 09/30/24 Logged Sublingual (Ntrostat 04:30 Morphine Sulfate PHA 09/30/24 Logged Injection 04:30 Oxygen By Nasal RT 09/30/24 Transmitted Cannula 04:27 Stat Ekg For Chest [facility] 09/30/24 In Process Pain 04:27 Notify Of Changes [facility] 09/30/24 In Process From Base 04:27 Upholstery Estimator For [facility] 09/30/24 In Process 24 Hours 04:27 Emergency Dysrhythmia [facility] 09/30/24 In Process Protocol 04:27 Rhythm Strips Once [facility] 09/30/24 In Process Every Shift 04:27 Echo 2d Mode Cardiac US 09/30/24 Transmitted DOP 04:31 Apixaban (Eliquis) [facility] 09/30/24 Logged 10:00 Empagliflozin [facility] 09/30/24 Logged (Jardiance) 10:00 Gabapentin Capsule [facility] 09/30/24 Logged (Neurontin Capsule) 06:00 (Nf) Atorvastatin PHA 09/30/24 Logged Calcium 10:00 (Nf) Carvedilol [facility] 09/30/24 Logged 06:00 Date of Service: Sep 30, 2024 Billing Provider: FABRICIO BECKFORD MD Common Visit Codes: 65462-MDRFGSI INP/OBS CARE (HIGH) Secondary Visit Codes: 54996-MWPYBZKI CARE PLAN 30 MINUTES FAWAD COWAN RESIDENT Sep 30, 2024 04:34
[2024-09-30] MEDS ORDERED: DEXTROSE (50%) 50ML SYRG IV PRN (04:45)
[2024-09-30 05:22] LABS: Hematocrit 44.7 % (36.0-46.0); Hemoglobin 15.0 g/dL (12.2-16.2); Mean Corpuscular Hemoglobin 27.7 pg (28.0-32.0); Mean Corpuscular Volume 82.5 fL (80.0-100.0); Nucleated Red Blood Cells % 0.1 %
[2024-09-30 05:43] LABS: Alanine Aminotransferase 15 U/L (7-40); Albumin 4.6 g/dL (3.2-4.8); Alkaline Phosphatase 98 U/L (46-116); Anion Gap 11 (5-15); BUN/Creatinine Ratio 20.8 (10.0-20.0); Bilirubin, Total 0.7 mg/dL (0.2-1.0); Blood Urea Nitrogen 21 mg/dL (9-23); Calcium 9.5 mg/dL (8.7-10.4); Carbon Dioxide 23 mmol/L (20-31); Chloride 106 mmol/L (98-107); Glucose 150 mg/dL (74-106); Potassium 4.4 mmol/L (3.5-5.1); Sodium 140 mmol/L (136-145); Total Protein 6.5 g/dL (5.7-8.2)
--- NOTE | 2024-09-30 05:45 | DVH ---
CHEST RADIOGRAPH Indication: Rule out pneumonia, pulmonary edema Technique: 1 view Comparison: XY CHEST XRAY 1 VIEW on DOS: 02/04/24, XY CHEST PORTABLE on DOS: 08/28/23, XY CHEST PORTABL E on DOS: 03/21/23, XY CHEST PORTABLE on DOS: 12/13/22, XY CHEST PORTABLE on DOS: 10/05/22 FINDINGS: Lines and Tubes: Unchanged positioning of the left implanted cardiac device. Lungs: No focal consolidation. Pleura: No effusion or pneumothorax. Cardiomediastinal contours: Unremarkable. Other: No acute osseous abnormality. IMPRESSION: 1. No acute cardiopulmonary abnormality.
[2024-09-30] MEDS: ACCU-CHEK COMFORT CURVE STRIP VI SCH (06:30)
[2024-09-30] MEDS: SODIUM CHLOR 0.9% PF (SALINE LOCK) 10ML VIAL/SYR IV SCH (06:31)
[2024-09-30] MEDS: SODIUM CHLORIDE 0.9% 1,000 ML IV SCH (06:40)
[2024-09-30] MEDS: InsuLIN REG 1unit/0.01ml Soln (100units/ml) SC SCH (06:47)
[2024-09-30] MEDS: dilTIAZem 25 MG/5 ML VIAL IV ONE (06:55)
[2024-09-30] MEDS: CARVEDILOL 12.5 MG TAB PO ONE (06:56)
[2024-09-30] MEDS: GABAPENTIN 100 MG CAP PO SCH (06:56)
--- NOTE | 2024-09-30 07:13 | DVHINCON2 ---
Date of service: Sep 30, 2024 History of Present Illness HPI Patient is a 73-year-old female who presented to the hospital with few hours of palpitations/lightheadedness. She was found to have SVT in emergency room. Later, the patient's heart rate went down to 70s. Cardiology is involved for cardiac aspects of care. Patient is known to our practice from outside and before. Home Meds Active Scripts Carvedilol (Carvedilol) 25 Mg Tab, 1 TAB PO TID for 30 Days, #90 TAB 1 Refill Prov:ASHLEY AVENDANO MD 02/05/24 Flecainide Acetate (Flecainide Acetate) 100 Mg Tab, 1 TAB PO BID, #60 TAB 5 Refills Prov:MARGARITA MANRIQUE MD 03/22/23 Reported Medications Insulin Glargine (Toujeo Solostar) 300 Unit/Ml Inj, 25 UNIT SC HS, INJ 08/29/23 Diclofenac Sodium (Topical) (Voltaren Arthritis Pain) 1 % Gel, 2 GRAMS TOP Q6HP PRN for PAIN SCALE 1 THRU 6, GEL 08/29/23 Benazepril Hcl (Benazepril Hcl) 5 Mg Tab, 2.5 MG PO DAILY, TAB 08/29/23 Dulaglutide (Trulicity) 1.5 Mg/0.5 Ml Inj, 1.5 MG SC QWEEKLY, INJ 07/03/21 Insulin Lispro (Human) (Humalog) 100 Unit/Ml Inj, 6 UNIT SC AC, INJ 07/03/21 Magnesium Oxide (MAGNESIUM OXIDE) 400 Mg Tab, 1 TAB PO TID, #30 TAB 5 Refills 07/03/21 Empagliflozin (Jardiance) 10 Mg Tab, 25 MG PO DAILY, TAB 07/03/21 Atorvastatin Calcium (ATORVASTATIN CALCIUM) 40 Mg Tab, 1 TAB PO DAILY, #30 TAB 5 Refills 07/03/21 Gabapentin (Gabapentin) 100 Mg Cap, 100 MG PO TID 07/03/21 Apixaban Base (ELIQUIS) 5 Mg Tab, 5 MG PO BID, TAB 07/03/21 Metformin Hydrochloride (Metformin Hcl) 500 Mg Tab, 1000 MG PO IBID for 30 Days, MG 07/03/21 Past Medical History Others Past medical history includes hypertension, hyperlipidemia, diabetes mellitus, old history of colon cancer (on remission), COPD, CKD, history of SVT (repeated episodes in need of adenosine to be controlled), history of paroxysmal A. fib. She has had hysterectomy before. She is status post atrial fibrillation ablation. Family history includes cancer and heart disease. She has had pacemaker (Biotronik) implantation for tachybradycardia syndrome. She did have loop recorder which was explanted on October 11, 2022. 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 Last A-fib/Flutter and SVT ablations were in May 2024 (Dr Latif) Patient Family History: Atrial fibrillation G8 MOTHER, Onset:84 Cardiovascular disease G8 MOTHER, Onset:60 years & older Diabetes mellitus G8 FATHER, Onset:60 years & older FHx: pancreatic cancer G8 FATHER, Onset:60 years & older Heart failure G8 MOTHER, Onset:60 years & older Pancreatic cancer Smoker: No Hx (Negative) Drugs: None Review of Systems Constitutional: Weakness Cardiovascular: Palpitations All Other Systems 14 point review of system was performed. Relevant findings as per above and as per HPI. Otherwise negative. H&P Exam Vital Signs Vital Signs Date Time Temp Pulse Resp B/P (MAP) Pulse Ox O2 Delivery O2 Flow Rate FiO2 09/30/24 06:56 107 148/92 09/30/24 06:52 97.6 16 96 97.6 General Appeara: Well developed Head Exam: Normal inspection Eye Exam: bilateral eye PERRL Pulmonary/Respiratory: Normal inspection, Lungs clear Cardiovascular/Chest: Systolic murmur Peripheral Pulses: 2+ carotid (R), 2+ carotid (L), 2+ femoral (R), 2+ femoral (L), 2+ dorsalis pedis (R), 2+ dorsalis pedis (L), 2+ Radial (R), 2+ Radial (L) Abdominal Exam: Normal bowel sounds, Soft Neuro/Mental St: Alert, Oriented Appearance: Appropriate appearance Eye contact/ Speech: Cooperative Labs/Xrays Labs Test 09/30/24 04:46 09/30/24 01:38 Range/Units White Blood Count 7.3 4.4-10.8 10^3/uL Red Blood Count 5.41 H 4.0-5.20 10^6/uL Hemoglobin 15.0 12.2-16.2 g/dL Hematocrit 44.7 36.0-46.0 % Mean Corpuscular Volume 82.5 80.0-100.0 fL Mean Corpuscular Hemoglobin 27.7 L 28.0-32.0 pg Mean Corpuscular Hemoglobin Concent 33.6 32.0-36.0 g/dL Red Cell Distribution Width 16.4 H 11.8-14.3 % Platelet Count 179 140-450 10^3/uL Mean Platelet Volume 8.7 6.9-10.8 fL Neutrophils (%) (Auto) 59.1 37.0-80.0 % Lymphocytes (%) (Auto) 29.0 10.0-50.0 % Monocytes (%) (Auto) 10.8 0.0-12.0 % Eosinophils (%) (Auto) 0.4 0.0-7.0 % Basophils (%) (Auto) 0.7 0.0-2.0 % Neutrophils # (Auto) 4.3 1.6-8.6 10 ^3/uL Lymphocytes # (Auto) 2.1 0.4-5.4 10 ^3/uL Monocytes # (Auto) 0.8 0-1.3 10 ^3/uL Eosinophils # (Auto) 0 0-0.8 10 ^3/uL Basophils # (Auto) 0.1 0-0.2 10 ^3/uL Nucleated Red Blood Cells 0.1 % Sodium Level 140 136-145 mmol/L Potassium Level 4.4 3.5-5.1 mmol/L Chloride Level 106 98-107 mmol/L Carbon Dioxide Level 23 20-31 mmol/L Anion Gap 11 5-15 Blood Urea Nitrogen 21 9-23 mg/dL Creatinine 1.01 0.550-1.02 mg/dL Glomerular Filtration Rate Calc 58 >90 mL/min BUN/Creatinine Ratio 20.8 H 10.0-20.0 Serum Glucose 150 H 74-106 mg/dL Calcium Level 9.5 8.7-10.4 mg/dL Total Bilirubin 0.7 0.2-1.0 mg/dL Aspartate Amino Transferase (AST) 18 13-40 U/L Alanine Aminotransferase (ALT) 15 7-40 U/L Alkaline Phosphatase 98 46-116 U/L Total Protein 6.5 5.7-8.2 g/dL Albumin 4.6 3.2-4.8 g/dL Thyroid Stimulating Hormone (TSH) 2.36 0.55-4.78 uIU/mL Troponin I High Sensitivity 17 </=34 ng/L Assessment/Plan Plan Patient is a 73-year-old female who presented to the hospital with few hours of palpitations/lightheadedness. She was found to have SVT in emergency room. Later, the patient's heart rate went down to 70s. Cardiology is involved for cardiac aspects of care. Patient is known to our practice from outside and before. Patient does have history of paroxysmal A-fib and SVTs. Patient does have history of paroxysmal A-fib and A-fib ablations. She had pacemaker implantation (Biotronik) on October 05, 2022 for tachybradycardia syndrome. She has had repeat SVT/Flutter and A-fib ablation in May 2024 In exam, she is lying comfortably in bed. Mucosa is pink and wet. There is no carotid bruit. There is no goiter. Not using accessory muscles of breathing. Chest: Clear to auscultation. Cardiac: irregular, no thrill/gallop/murmur. Abdomen: Soft, nontender, no hepatomegaly. No gross mass. Extremities: No edema. Dorsalis pedis is 2+ bilateral Past medical history includes hypertension, hyperlipidemia, diabetes mellitus, old history of colon cancer (on remission), COPD, CKD, history of SVT (repeated episodes in need of adenosine to be controlled), history of paroxysmal A. fib. She has had hysterectomy before. She is status post atrial fibrillation ablation. Family history includes cancer and heart disease. She has had pacemaker (Biotronik) implantation for tachybradycardia syndrome. She did have loop recorder which was explanted on October 11, 2022. 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 Last A-fib/Flutter and SVT ablations were in May 2024 (Dr Latif) Echocardiogram of April 2021 (performed in the office) revealed preserved systolic function, no specific valvular disease Echocardiogram of July 03, 2021 revealed mild concentric left ventricular hypertrophy, ejection fraction of 60 to 65%, no wall motion abnormality, normal diastolic and trivial MR/TR Echocardiogram of April 26, 2022 revealed ejection fraction of 55 to 60%, mild concentric left ventricular hypertrophy Echocardiogram of September 30, 2022 revealed ejection fraction of 55 to 60%, mild concentric left ventricular hypertrophy. Echocardiogram of revealed: mild concentric LVH, LVEF of 65 to 70%, Pacing wire in right side Creatinine: 1.29-1.01 Potassium: 5.0 x 4.4 Troponin (high sensitive): 14-17 TSH: 2.36 Chest x-ray revealed: IMPRESSION: 1. No acute cardiopulmonary abnormality. EKG on arrival revealed SVT Patient is a 73-year-old female who presented with palpitation. Review of the EKG was in favor of episodes of SVT. It is of note that the patient does have history of paroxysmal A-fib for which she has had ablation repeatedly. She does have a pacemaker ([employer] Systemsronik). Tachyarrhythmia SVT Paroxysmal A-fib Dizziness Status post atrial fibrillation ablation Hypertension Hyperlipidemia Diabetes mellitus Status post pacemaker implantation Cardiac suggestion for care: Manage in Tele Follow-up electrolytes and kidney function tests and correct abnormalities Keep potassium above 4 magnesium above 2 Echocardiogram Carvedilol: 25 mg TID IV Amiodarone for now Full anticoagulation Further evaluation and management depends on the above and clinical course A total of 75 minutes was spent reviewing the patient record, examining the patient, making a diagnostic and therapeutic plan, discussing this plan with medical personnel, following up on diagnostic studies and following the patient for clinical stability excluding any and all procedures. At least 50% of this time was spent in direct, [id number] contact. Thank you for allowing me to participate in this patient's care. Further recommendations will depend on patient's clinical course. Please do not hesitate to contact me if you have any questions or concerns. This medical document was created using electronic medical record system with [employer] computerized dictation system. Although this document has been carefully reviewed, there may still be some phonetic and typographical errors. These areas are purely typographical due to the imperfection of the software programs, and do not reflect any compromise in the patient's medical care. Plan discussed with: Patient, Other (nurse) JACQUELYN JENSEN MD Sep 30, 2024 07:13
--- NOTE | 2024-09-30 13:44 | ECG ---
[facility] Test Date: 2024-09-29 Test Time: 22:48:14 Pat Name: DENISA CAZARES Department: Room: [address] [place] [address] Gender: F Teleprinter: JERRELL : 1950 Requested By: EMERGENCY EMERGENCY Order Number: [id number] Reading MD: Measurements Intervals [place] Rate: 133 P: 0 DC: 0 QRS: -22 QRSD: 82 T: 94 QT: 307 QTc: 457 Interpretive Statements Junctional tachycardia Borderline left axis deviation Anterior infarct, old Borderline repolarization abnormality Please click the below link to view image of tracing.
[2024-09-30] MEDS: CARVEDILOL 12.5 MG TAB PO SCH (15:49)
[2024-09-30] MEDS: APIXABAN 5 MG TAB PO SCH (15:49)
[2024-09-30] MEDS: ATORVASTATIN 20 MG TAB PO SCH (15:49)
[2024-09-30] MEDS: LOSARTAN POTASSIUM 25 MG TAB PO SCH (15:50)
[2024-09-30] MEDS: EMPAGLIFLOZIN 10 MG TAB PO SCH (15:50)
[2024-09-30] MEDS ORDERED: AMIODARONE BOLUS KIT 100 ML IV ONE (17:00)
[2024-09-30] MEDS ORDERED: AMIODARONE 360mg/200mL PREMIX 200 ML IV ONE (17:15)
--- NOTE | 2024-09-30 18:19 | DVHPNRES ---
Progress Note Date Seen: Sep 30, 2024 Resident Creating Document: MAULIK CASH RESIDENT Medical Necessity Reason Pt with a Central, PICC or Fol: No Subjective Review of Systems 73-year-old female past medical history significant for atrial fibrillation status post ablation, COPD, diabetes, hyperlipidemia, hypertension, CAD, hysterectomy, history of colon cancer in remission, status post pacemaker in- situ, comes to the ED with new onset of elevated heart rate, palpitation, and lightheadedness. Patient had similar multiple hospital/ED visits with similar episodes. 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 past surgical history : hysterectomy 09/30/24 Patient seen in the ER. Patient is alert x3, comfortable, complains of dizziness since yesterday denies any chest pain, shortness of breath, nausea, vomiting, diarrhea. rest of ROS is negative. Cardiology is consulted and recommended Echocardiogram, Carvedilol: 25 mg TID, IV Amiodarone for now ,Full anticoagulation. Objective vital signs Vital Sign Date Time Temp Pulse Resp B/P (MAP) Pulse Ox O2 Delivery O2 Flow Rate FiO2 09/30/24 16:46 74 155/77 09/30/24 15:50 97.9 17 97 97.9 09/30/24 15:50 Room Air Total Intake and Output 09/29/24 09/29/24 09/30/24 15:00 23:00 07:00 Intake Total 1000 ml Balance 1000 ml medications Current Medications Medications Dose Ordered Sig/Jeff Route Start Time Stop Time Status Last Admin Dose Admin Sodium Chloride 10 ml Q8HR IV 09/30/24 06:00 09/30/24 16:14 10 ML Ondansetron HCl 4 mg Q4HP PRN IV 09/30/24 04:30 Acetaminophen 650 mg Q6HP PRN PO 09/30/24 04:30 Nitroglycerin 0.4 mg Q5MINP PRN SL 09/30/24 04:30 Morphine Sulfate 2 mg Q30M PRN IV 09/30/24 04:30 Apixaban 5 mg BID PO 09/30/24 10:00 09/30/24 15:49 5 MG Empaglifozin 25 mg DAILY PO 09/30/24 10:00 09/30/24 15:50 25 MG Gabapentin 100 mg TID PO 09/30/24 06:00 09/30/24 15:48 100 MG Atorvastatin Calcium 40 mg DAILY PO 09/30/24 10:00 09/30/24 15:49 40 MG Carvedilol 25 mg TID PO 09/30/24 14:00 09/30/24 15:49 25 MG Sodium Chloride 1,000 ml @ 50 mls/hr Q20H IV 09/30/24 04:45 Losartan Potassium 25 mg DAILY PO 09/30/24 10:00 Diagnostic Test (Pha) 1 strip ACHS 09/30/24 07:00 09/30/24 16:14 1 STRIP Insulin Human Regular ACHS SC 09/30/24 07:00 09/30/24 15:57 6 UNITS Dextrose 50 ml UD PRN IV 09/30/24 04:45 Examination General: Patient alert and oriented in person, place and time. Patient following commands. HEENT: Normocephalic, atraumatic, moist mucous membranes Respiratory/pulmonary: Clear lungs bilaterally, vesicular murmurs present in almost all lung faria, no associated crackles or wheezes. Cardiovascular: Normal heart sounds S1 and S2 with no associated murmurs Abdomen: Abdomen nondistended, there is no pain to palpation in any of the abdominal quadrants, no palpable masses. Extremities: There is no peripheral edema present at the lower extremities. Peripheral Pulses: 3+ Radial (R). 3+ Radial (L). 3+ Dorsalis pedis (R). 3+ Dorsalis pedis(L) Skin: No rashes or pruritus, there is no sacral edema present at this time. Neurological: Intact cranial nerves with no focal neurologic deficits laboratory and microbiology Laboratory Tests 09/30/24 04:46 Test 09/30/24 04:46 Range/Units Serum Glucose 150 H 74-106 mg/dL Problem List/Assessment/Plan Problem List/Assessment/Plan # SVT # Palpitations - the consulted consulted and recommended Echocardiogram, Carvedilol: 25 mg TID, - echo ordered - continue carvedilol 12.5mg BID, IV Amiodarone, Eliquis - S/P placement of pacemaker - telemetry # HILTON secondary to vasomotor nephropathy - resolved # hypertension - Losartan 25mg, carvedilol 12.5mg BID, # Chronic AFib - eliquis 5mg BID - Triston Vasc score 5 # History of colon cancer - in remission # Hyperlipidemia - atorvastatin to 40mg # Diabetes mellitus type 2 with hyperglycemia - Hba1c: 7.8 - mild ISS # Diabetic neuropathjy - gabapentin 100mg TID PPI prophylaxis: Not indicated DVT prophylaxis: Eliquis Goals of care discussed with patient for 27 minutes: Full code case discussed with Dr. Long Plan discussed with: Patient My Orders My Orders Orders - MAULIK CASH RESIDENT Procedure Category Date Status Time Communication Order ORDERS 09/30/24 Transmitted 11:25 Echo 2d Mode Cardiac US 09/30/24 Logged DOP 18:16 MAULIK CASH RESIDENT Sep 30, 2024 18:19
[2024-09-30 20:58] VITALS: BP 163/85; PULSE 66; RESP 20; TEMP 98.2; O2SAT 98
[2024-09-30 22:10] VITALS: BP 160/94; PULSE 66; RESP 17; RESP 18; TEMP 98.2; O2SAT 94; O2SAT 97
[2024-09-30] MEDS: AMIODARONE 360mg/200mL PREMIX 200 ML IV SCH (23:15)
[2024-09-30 23:57] VITALS: PULSE 60
[2024-10-01] VITALS (9 sets, daily range): BP systolic 132–170; BP diastolic 72–99; PULSE 61–70; RESP 16–18; TEMP 36.6; O2SAT 96–98
[2024-10-01 06:57] LABS: Urine Protein, UAD Negative (Negative)
--- NOTE | 2024-10-01 07:13 | DVHPN2 ---
Progress Note - Dictate Date Seen: Oct 01, 2024 Medical Necessity Reason Pt with a Central, PICC or Fol: No vital signs Vital Sign Date Time Temp Pulse Resp B/P (MAP) Pulse Ox O2 Delivery O2 Flow Rate FiO2 10/01/24 05:31 66 135/81 10/01/24 05:00 98.1 18 96 98.1 09/30/24 22:10 Room Air* 0 21 Total Intake and Output 09/30/24 09/30/24 10/01/24 15:00 23:00 07:00 Intake Total 150 ml Balance 150 ml medications Current Medications Medications Dose Ordered Sig/Jeff Route Start Time Stop Time Status Last Admin Dose Admin Sodium Chloride 10 ml Q8HR IV 09/30/24 06:00 10/01/24 06:03 10 ML Ondansetron HCl 4 mg Q4HP PRN IV 09/30/24 04:30 Acetaminophen 650 mg Q6HP PRN PO 09/30/24 04:30 Nitroglycerin 0.4 mg Q5MINP PRN SL 09/30/24 04:30 Morphine Sulfate 2 mg Q30M PRN IV 09/30/24 04:30 Apixaban 5 mg BID PO 09/30/24 10:00 09/30/24 21:42 5 MG Empaglifozin 25 mg DAILY PO 09/30/24 10:00 09/30/24 15:50 25 MG Gabapentin 100 mg TID PO 09/30/24 06:00 10/01/24 06:02 100 MG Atorvastatin Calcium 40 mg DAILY PO 09/30/24 10:00 09/30/24 15:49 40 MG Carvedilol 25 mg TID PO 09/30/24 14:00 10/01/24 04:31 25 MG Sodium Chloride 1,000 ml @ 50 mls/hr Q20H IV 09/30/24 04:45 10/01/24 02:16 50 MLS/HR Losartan Potassium 25 mg DAILY PO 09/30/24 10:00 Diagnostic Test (Pha) 1 strip ACHS 09/30/24 07:00 10/01/24 06:03 1 STRIP Insulin Human Regular ACHS SC 09/30/24 07:00 10/01/24 06:11 2 UNITS Dextrose 50 ml UD PRN IV 09/30/24 04:45 laboratory and microbiology Laboratory Tests 09/30/24 04:46 Test 09/30/24 04:46 Range/Units Serum Glucose 150 H 74-106 mg/dL Assessment/Plan Patient is a 73-year-old female who presented to the hospital with few hours of palpitations/lightheadedness. She was found to have SVT in emergency room. Later, the patient's heart rate went down to 70s. Cardiology is involved for cardiac aspects of care. Patient is known to our practice from outside and before. Patient does have history of paroxysmal A-fib and SVTs. Patient does have history of paroxysmal A-fib and A-fib ablations. She had pacemaker implantation (Biotronik) on October 05, 2022 for tachybradycardia syndrome. She has had repeat SVT/Flutter and A-fib ablation in May 2024 In exam, she is lying comfortably in bed. Mucosa is pink and wet. There is no carotid bruit. There is no goiter. Not using accessory muscles of breathing. Chest: Clear to auscultation. Cardiac: irregular, no thrill/gallop/murmur. Abdomen: Soft, nontender, no hepatomegaly. No gross mass. Extremities: No edema. Dorsalis pedis is 2+ bilateral Past medical history includes hypertension, hyperlipidemia, diabetes mellitus, old history of colon cancer (on remission), COPD, CKD, history of SVT (repeated episodes in need of adenosine to be controlled), history of paroxysmal A. fib. She has had hysterectomy before. She is status post atrial fibrillation ablation. Family history includes cancer and heart disease. She has had pacemaker (Biotronik) implantation for tachybradycardia syndrome. She did have loop recorder which was explanted on October 11, 2022. 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 Last A-fib/Flutter and SVT ablations were in May 2024 (Dr Latif) Echocardiogram of April 2021 (performed in the office) revealed preserved systolic function, no specific valvular disease Echocardiogram of July 03, 2021 revealed mild concentric left ventricular hypertrophy, ejection fraction of 60 to 65%, no wall motion abnormality, normal diastolic and trivial MR/TR Echocardiogram of April 26, 2022 revealed ejection fraction of 55 to 60%, mild concentric left ventricular hypertrophy Echocardiogram of September 30, 2022 revealed ejection fraction of 55 to 60%, mild concentric left ventricular hypertrophy. Echocardiogram of revealed: mild concentric LVH, LVEF of 65 to 70%, Pacing wire in right side Creatinine: 1.29 - 1.01 Potassium: 5.0 - 4.4 M.1 Troponin (high sensitive): 12 - 14 - 17 TSH: 2.36 Chest x-ray revealed: IMPRESSION: 1. No acute cardiopulmonary abnormality. EKG on arrival revealed SVT Tele revealed sinus rhythm and occasions of A-fib with RVR and SVTs. Patient is a 73-year-old female who presented with palpitation. Review of the EKG was in favor of episodes of SVT. It is of note that the patient does have history of paroxysmal A-fib for which she has had ablation repeatedly. She does have a pacemaker (Excordaronik). Tachyarrhythmia SVT Paroxysmal A-fib Dizziness Status post atrial fibrillation ablation Hypertension Hyperlipidemia Diabetes mellitus Status post pacemaker implantation Cardiac suggestion for care: Manage in Tele Follow-up electrolytes and kidney function tests and correct abnormalities Keep potassium above 4 magnesium above 2 Carvedilol: 25 mg TID Full anticoagulation (on Eliquis) Flecainide: 150 mg BID Cardiac vidal, can be followed as outpatient Further evaluation and management depends on the above and clinical course A total of 55 minutes was spent reviewing the patient record, examining the patient, making a diagnostic and therapeutic plan, discussing this plan with medical personnel, following up on diagnostic studies and following the patient for clinical stability excluding any and all procedures. At least 50% of this time was spent in direct, [id number] contact. Thank you for allowing me to participate in this patient's care. Further recommendations will depend on patient's clinical course. Please do not hesitate to contact me if you have any questions or concerns. This medical document was created using electronic medical record system with [employer] computerized dictation system. Although this document has been carefully reviewed, there may still be some phonetic and typographical errors. These areas are purely typographical due to the imperfection of the software programs, and do not reflect any compromise in the patient's medical care. Plan discussed with: Patient, Other (medical practice assistant) JACQUELYN JENSEN MD Oct 01, 2024 07:13
--- NOTE | 2024-10-01 09:35 | DVHDSRES ---
Discharge Summary Date of Admission Resident Creating Document: MAULIK CASH Sep 30, 2024 at 04:27 Date of Discharge: Oct 01, 2024 Admitting Diagnosis # Palpitations due to chronc Afib Labs/Diagnostic Data: Laboratory Results Test 10/01/24 06:41 10/01/24 06:06 09/30/24 04:46 09/30/24 01:38 Urine Color Colorless (Yellow) Urine Clarity Clear (Clear) Urine pH 5.0 (5.0-9.0) Urine Specific [place] 1.005 (1.001-1.035) Urine Protein Negative (Negative) Urine Ketones Negative (Negative) Urine Blood Negative /uL (Negative) Urine Nitrite 1+ (Negative) Urine Bilirubin Negative (Negative) Urine Urobilinogen Normal mg/dL (Negative) Urine Leukocyte Esterase Negative /uL (Negative) Urine RBC <1 /hpf (0 - 4) Urine Microscopic WBC < 1 /HPF (0-5) Urine Squamous Epithelial Cells Few /hpf (<5) Urine Bacteria Few /hpf (None Seen) Urine Glucose 4+ mg/dL (Normal) POC Glucose 144 mg/dl (70-106) White Blood Count 7.3 10^3/uL (4.4-10.8) Red Blood Count 5.41 10^6/uL (4.0-5.20) Hemoglobin 15.0 g/dL (12.2-16.2) Hematocrit 44.7 % (36.0-46.0) Mean Corpuscular Volume 82.5 fL (80.0-100.0) Mean Corpuscular Hemoglobin 27.7 pg (28.0-32.0) Mean Corpuscular Hemoglobin Concent 33.6 g/dL (32.0-36.0) Red Cell Distribution Width 16.4 % (11.8-14.3) Platelet Count 179 10^3/uL (140-450) Mean Platelet Volume 8.7 fL (6.9-10.8) Neutrophils (%) (Auto) 59.1 % (37.0-80.0) Lymphocytes (%) (Auto) 29.0 % (10.0-50.0) Monocytes (%) (Auto) 10.8 % (0.0-12.0) Eosinophils (%) (Auto) 0.4 % (0.0-7.0) Basophils (%) (Auto) 0.7 % (0.0-2.0) Neutrophils # (Auto) 4.3 10 ^3/uL (1.6-8.6) Lymphocytes # (Auto) 2.1 10 ^3/uL (0.4-5.4) Monocytes # (Auto) 0.8 10 ^3/uL (0-1.3) Eosinophils # (Auto) 0 10 ^3/uL (0-0.8) Basophils # (Auto) 0.1 10 ^3/uL (0-0.2) Nucleated Red Blood Cells 0.1 % Sodium Level 140 mmol/L (136-145) Potassium Level 4.4 mmol/L (3.5-5.1) Chloride Level 106 mmol/L (98-107) Carbon Dioxide Level 23 mmol/L (20-31) Anion Gap 11 (5-15) Blood Urea Nitrogen 21 mg/dL (9-23) Creatinine 1.01 mg/dL (0.550-1.02) Glomerular Filtration Rate Calc 58 mL/min (>90) BUN/Creatinine Ratio 20.8 (10.0-20.0) Serum Glucose 150 mg/dL (74-106) Hemoglobin A1c 7.8 % A1C (<5.7) Calcium Level 9.5 mg/dL (8.7-10.4) Magnesium Level 2.1 mg/dL (1.6-2.6) Total Bilirubin 0.7 mg/dL (0.2-1.0) Aspartate Amino Transferase (AST) 18 U/L (13-40) Alanine Aminotransferase (ALT) 15 U/L (7-40) Alkaline Phosphatase 98 U/L (46-116) Total Protein 6.5 g/dL (5.7-8.2) Albumin 4.6 g/dL (3.2-4.8) Thyroid Stimulating Hormone (TSH) 2.36 uIU/mL (0.55-4.78) Troponin I High Sensitivity 17 ng/L (</=34) Other Laboratory Tests 09/30/24 04:46 Brief Hx & Hospital Course: 73-year-old female past medical history significant for atrial fibrillation status post ablation, COPD, diabetes, hyperlipidemia, hypertension, CAD, hysterectomy, history of colon cancer in remission, status post pacemaker in- situ, comes to the ED with new onset of elevated heart rate, palpitation, and lightheadedness. Patient had similar multiple hospital/ED visits with similar episodes. 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 Brief hospital course: Patient had symptoms of recurrence of atrial fibrillation, SVT, palpitations, was admitted and Cardiology was consulted where they recommended carvedilol 12.5 mg b.i.d. , IV amiodarone, Eliquis, echocardiogram done. Sound Assistant recommended discharging patient on flecainide 150 mg b.i.d.. And follow-up outpatient with plant engineer. For hypotension she was given losartan 25 mg, carvedilol. For her chronic AFib with Triston Vasc score of 5 Eliquis 5 mg b.i.d. was continued. She had HILTON secondary to be [place] which resolved. For her hyperlipidemia atorvastatin 40 mg given. For her diabetes with HbA1c of 7.8 mild sliding scale was started and Accu-Cheks were done. For her diabetic neuropathy gabapentin 100 mg t.i.d. was given. Patient did not require PPI prophylaxis. Patient denies any chest pain, palpitations, shortness of breath. Patient is now in sinus rhythm, plant engineer recommended no need for any ablation and due to her last drink was 2 weeks ago it is not alcohol induced. Patient is stable for discharge, communicated understanding of her discharge plan and need for follow-up with plant engineer outpatient and PCP in 1-2 weeks. General: Patient alert and oriented in person, place and time. Patient following commands. HEENT: Normocephalic, atraumatic, moist mucous membranes Respiratory/pulmonary: Clear lungs bilaterally, vesicular murmurs present in almost all lung faria, no associated crackles or wheezes. Cardiovascular: Normal heart sounds S1 and S2 with no associated murmurs Abdomen: Abdomen nondistended, there is no pain to palpation in any of the abdominal quadrants, no palpable masses. Extremities: There is no peripheral edema present at the lower extremities. Peripheral Pulses: 3+ Radial (R). 3+ Radial (L). 3+ Dorsalis pedis (R). 3+ Dorsalis pedis(L) Skin: No rashes or pruritus, there is no sacral edema present at this time. Neurological: Intact cranial nerves with no focal neurologic deficits discharge instruction: follow cardiac diet, dash diet, follow up with PCP and Sound Assistant outpatient. take flecanide 150 mg b.i.d Advised regarding avoiding smoking/alcohol use Cold immersion, Valsalva, Carotid massage when palpitations present In Case of palpitations,, take 1 more flecainide 150 mg if the last regular dose was more than 1 hour Operations or Procedures ORDERING PHYSICIAN: FAWAD COWAN RESIDENT PROCEDURE(s): CXR1 - CHEST XRAY 1 VIEW REASON: Rule out pneumonia, pulmonary edema ORDER NUMBER(s): [id number], ACCESSION NUMBER(s): [id number] CHEST RADIOGRAPH Indication: Rule out pneumonia, pulmonary edema Technique: 1 view Comparison: XY CHEST XRAY 1 VIEW on DOS: 02/04/24, XY CHEST PORTABLE on DOS: 08/28/23, XY CHEST PORTABLE on DOS: 03/21/23, XY CHEST PORTABLE on DOS: 12/13/22, XY CHEST PORTABLE on DOS: 10/05/22 FINDINGS: Lines and Tubes: Unchanged positioning of the left implanted cardiac device. Lungs: No focal consolidation. Pleura: No effusion or pneumothorax. Cardiomediastinal contours: Unremarkable. Other: No acute osseous abnormality. IMPRESSION: 1. No acute cardiopulmonary abnormality. Condition at Discharge: Stable Final Diagnosis/Problems List # SVT # Palpitations # HILTON secondary to vasomotor nephropathy # hypertension # Chronic AFib # History of colon cancer # Hyperlipidemia # Diabetes mellitus type 2 with hyperglycemia # Diabetic neuropathy Discharge Disposition: Home Discharge Instruct/Medications Scheduled Apixaban Base (Eliquis), 5 MG PO BID, (Reported) Atorvastatin Calcium (Atorvastatin Calcium), 1 TAB PO DAILY, (Reported) Benazepril Hcl (Benazepril Hcl), 2.5 MG PO DAILY, (Reported) Carvedilol (Carvedilol), 1 TAB PO TID Dulaglutide (Trulicity), 1.5 MG SC QWEEKLY, (Reported) Empagliflozin (Jardiance), 25 MG PO DAILY, (Reported) Flecainide Acetate (Flecainide Acetate), 150 MG PO BID Gabapentin (Gabapentin), 100 MG PO TID, (Reported) Insulin Glargine (Toujeo Solostar), 25 UNIT SC HS, (Reported) Insulin Lispro (Human) (Humalog), 6 UNIT SC AC, (Reported) Magnesium Oxide (Magnesium Oxide), 1 TAB PO TID, (Reported) Metformin Hydrochloride (Metformin Hcl), 1,000 MG PO IBID, (Reported) Scheduled PRN Diclofenac Sodium (Topical) (Voltaren Arthritis Pain), 2 GRAMS TOP Q6HP PRN for PAIN SCALE 1 THRU 6, (Reported) Discontinued Medications Flecainide Acetate (Flecainide Acetate), 1 TAB PO BID Discharge Statement: "Patient was advised to return to the ER or call 911 if any headaches, dizziness, shortness of breath, chest pain, abdominal pain, bleeding, fevers, or worsening of medical condition. Patient was counseled about treatment plan, medications, possible side effects, patientverbalized understanding. All questions were answered to the best of my ability. This discharge took greater then 30 minutes in planning, reviewing documentation, counseling the patient, and discussing with other team members." ASSESSMENT ASSESSMENT Assessment MAULIK CASH RESIDENT Oct 01, 2024 09:35
[2024-10-01] MEDS ORDERED: AMIODARONE HCL 200 MG TAB PO SCH (10:00)
[2024-10-01] MEDS ORDERED: FLEC100T PO (15:31)
[2024-10-01] MEDS: FLECAINIDE ACETATE 50 MG TAB PO ONE (15:49)
[2024-10-01] MEDS: LOSARTAN POTASSIUM 25 MG TAB PO ONE (16:45)
[2024-10-01] MEDS: hydrALAZINE HCL 20 MG/ML VL IV PRN (19:30)
--- NOTE | 2024-10-01 19:36 | DVHSR ---
APPROVED REPORT EXAM: Two-dimensional and M-mode echocardiogram with Doppler and color Doppler. Blood Pressure: 135/81 mmHg INDICATION Atrial Fibrillation RISK FACTORS Height: 5'4", Weight: 206 DIMENSIONS LVDd5.3 (3.8-5.7cm)LA (2D)4.3 (1.9-4.0cm)Aortic Root3.0 (2.0-3.7cm) LVDs4.0 (2.5-4.0cm)LA (MM) (1.9-4.0cm)Aortic Cusp Exc1.2 (1.5-2.0cm) EF (%) 50.0 (55-70%)Rt. Atrium3.3 (1.9-4.0cm)Asc. Aorta3.1 cm IVSd0.8 (0.7-1.1cm)RV (D) (1.8-2.4cm) PWd0.7 (0.7-1.1cm) Mitral Valve MitralMitral Stenosis E wave0.63m/sMV Mean GR.mmHg A wave0.62m/sMV Peak GR.mmHg E/A ratio1.02D MVAcm2 DECEL [id number] 1/2 Timems Aortic Valve Aortic ValveAortic Stenosis V10.64m/Karissa Mean GR.6mmHg V21.58m/Karissa Peak GR.10mmHg LVOT Diameter2.1 (1.8-2.4cm)Doppler AVA1.40cm2 Other Information Quality : Technically LimitedRhythm : Technically limited study due to body habitus. Conclusion Left ventricle: Left ventricle is normal-sized with normal systolic function. LVEF was around 60%. There was no wall motion abnormality. Right ventricle is normal-sized with normal systolic function. Both atria were normal-sized. Pacing wire in right-sided chamber was seen. Aortic valve was trileaflet. There was no aortic insufficiency/stenosis. There was trace mitral/tri cuspid regurgitation. Pulmonary valve did not reveal any insufficiency. As there was no good tricuspid regurgitation jet, right ventricular systolic pressure could not be es timated. There was no echocardiographic evidence for pulmonary hypertension. There was no pericardial effusion.
[2024-10-02] MEDS ORDERED: LOSARTAN POTASSIUM 25 MG TAB PO SCH (10:00)
== END 2024-10-01 20:50 | disposition home or self-care (01) | DRG 308 ==
LOC: ER 22:37 → OVERFLOW 09-30 04:27 → TELE-WESTW 09-30 20:58
PROVIDERS: ADMIT Student in an Organized Health Care Education/Training Program; ATTEND Emergency Medicine
DX: I47.10 Supraventricular tachycardia, unspecified (principal); N17.0 Acute kidney failure with tubular necrosis; I13.0 Hypertensive heart and chronic kidney disease with heart failure and stage 1 through stage 4 chronic kidney disease, or unspecified chronic kidney disease; E11.65 Type 2 diabetes mellitus with hyperglycemia; N18.9 Chronic kidney disease, unspecified; E11.22 Type 2 diabetes mellitus with diabetic chronic kidney disease; E11.40 Type 2 diabetes mellitus with diabetic neuropathy, unspecified; J44.9 Chronic obstructive pulmonary disease, unspecified; I25.10 Atherosclerotic heart disease of native coronary artery without angina pectoris; I48.0 Paroxysmal atrial fibrillation; E78.5 Hyperlipidemia, unspecified; Z95.0 Presence of cardiac pacemaker; Z90.710 Acquired absence of both cervix and uterus; Z87.891 Personal history of nicotine dependence; Z85.07 Personal history of malignant neoplasm of pancreas; Z85.038 Personal history of other malignant neoplasm of large intestine; Z80.0 Family history of malignant neoplasm of digestive organs; Z79.899 Other long term (current) drug therapy; Z79.84 Long term (current) use of oral hypoglycemic drugs; Z79.4 Long term (current) use of insulin; Z79.01 Long term (current) use of anticoagulants
CPT/HCPCS: 36415; 71045; 80048; 80053; 81001; 82962; 83036; 83735; 84443; 84484; 85025; 93005; 93306; 96360; G0378; J1815

== ENCOUNTER 2024-10-02 21:25 | Inpatient (IN) | payer OTHER ==
[~2024-10-02] VITALS: Ht 162.6 cm; Wt 90.6 kg
--- NOTE | 2024-10-02 22:04 | ECG ---
[facility] Date: 2024-10-02 Test Time: 21:32:56 Pat Name: DENISA CAZARES Department: ED Room: [address] [place] [address] Gender: F Chrome Polisher: JULIOCESAR : 1950 Requested By: GUILLERMINA APCK Order Number: [id number] Reading MD: Donovan Jon Measurements Intervals [place] Rate: 135 P: 0 TX: 0 QRS: -57 QRSD: 122 T: 80 QT: 318 QTc: 477 Interpretive Statements Sinus tachycardia IVCD, consider atypical RBBB Anterior infarct, old Electronically Signed On 10-05-2024 18:17:39 PDT by Donovan Jon Please click the below link to view image of tracing.
[2024-10-02] MEDS: METOPROLOL TARTRATE 1MG/1ML-5ML VIAL IV ONE (22:51)
[2024-10-02] MEDS: SODIUM CHLORIDE 0.9% 1,000 ML IV ONE (22:54)
[2024-10-02 23:11] LABS: Hematocrit 45.8 % (36.0-46.0); Hemoglobin 15.4 g/dL (12.2-16.2); Mean Corpuscular Hemoglobin 27.6 pg (28.0-32.0); Mean Corpuscular Volume 82.1 fL (80.0-100.0); Nucleated Red Blood Cells % 0.0 %
[2024-10-02 23:23] LABS: Chloride 104 mmol/L (98-107); Potassium 4.7 mmol/L (3.5-5.1); Sodium 138 mmol/L (136-145)
[2024-10-02 23:24] LABS: Anion Gap 10 (5-15); Carbon Dioxide 24 mmol/L (20-31)
[2024-10-02 23:25] LABS: Calcium 9.9 mg/dL (8.7-10.4)
[2024-10-02 23:30] LABS: BUN/Creatinine Ratio 15.3 (10.0-20.0); Blood Urea Nitrogen 20 mg/dL (9-23); Glucose 255 mg/dL (74-106)
--- NOTE | 2024-10-03 00:09 | DVH ---
EXAMINATION: XY CHEST PORTABLE CLINICAL HISTORY: cp COMPARISON: XY CHEST XRAY 1 VIEW on DOS: 09/30/24 FINDINGS: Stable appearing dual lead left-sided implantable cardiac device. No dominant consolidations. The costophrenic angles appear clear. No sizable pleural effusion or pne umothorax identified. Aortic calcifications. The cardiomediastinal silhouette otherwise appears with in normal limits given technique. IMPRESSION: No acute cardiopulmonary findings as visualized.
[2024-10-03 01:25] LABS: Urine Protein, UAD Negative (Negative)
--- NOTE | 2024-10-03 02:55 | ED.PDOC ---
History of Present Illness HPI Comments 73-year-old female with a history of AFib, COPD, diabetes, dyslipidemia, cardiac ablation x2 and pacemaker insertion brought in by private car complaining of palpitations. Patient states that around 1930 this evening she began to feel her heart beating rapidly, as high as 146, associated with lightheadedness. She denies any associated chest pain, shortness a breath, nausea, vomiting, diaphoresis, edema or syncope. Patient was discharged from this facility yesterday after being admitted for SVT. Chief Complaint: Palpitations Time Seen by MD: 02:53 Primary Care Provider: Dr. Menjivar, Dr. Sylvester Reviewed Notes: Nurses Notes Allergies: Coded Allergies: No Known Drug Allergy (Verified Allergy, Unknown, 04/26/20) Home Meds Active Scripts Flecainide Acetate (Flecainide Acetate) 100 Mg Tab, 150 MG PO BID for 30 Days, #90 TAB 0 Refills Prov:COBY DONAHUE RESIDENT 10/01/24 Carvedilol (Carvedilol) 25 Mg Tab, 1 TAB PO TID for 30 Days, #90 TAB 1 Refill Prov:ASHLEY AVENDANO MD 02/05/24 Reported Medications Insulin Glargine (Toujeo Solostar) 300 Unit/Ml Inj, 25 UNIT SC HS, INJ 08/29/23 Diclofenac Sodium (Topical) (Voltaren Arthritis Pain) 1 % Gel, 2 GRAMS TOP Q6HP PRN for PAIN SCALE 1 THRU 6, GEL 08/29/23 Benazepril Hcl (Benazepril Hcl) 5 Mg Tab, 2.5 MG PO DAILY, TAB 08/29/23 Dulaglutide (Trulicity) 1.5 Mg/0.5 Ml Inj, 1.5 MG SC QWEEKLY, INJ 07/03/21 Insulin Lispro (Human) (Humalog) 100 Unit/Ml Inj, 6 UNIT SC AC, INJ 07/03/21 Magnesium Oxide (MAGNESIUM OXIDE) 400 Mg Tab, 1 TAB PO TID, #30 TAB 5 Refills 07/03/21 Empagliflozin (Jardiance) 10 Mg Tab, 25 MG PO DAILY, TAB 07/03/21 Atorvastatin Calcium (ATORVASTATIN CALCIUM) 40 Mg Tab, 1 TAB PO DAILY, #30 TAB 5 Refills 07/03/21 Gabapentin (Gabapentin) 100 Mg Cap, 100 MG PO TID 07/03/21 Apixaban Base (ELIQUIS) 5 Mg Tab, 5 MG PO BID, TAB 07/03/21 Metformin Hydrochloride (Metformin Hcl) 500 Mg Tab, 1000 MG PO IBID for 30 Days, MG 07/03/21 Discontinued Scripts Flecainide Acetate (Flecainide Acetate) 100 Mg Tab, 1 TAB PO BID, #60 TAB 5 Refills Prov:MARGARITA MANRIQUE MD 03/22/23 Information Source: Patient Mode of Arrival: Ambulatory Severity: Moderate Timing: Hours Duration: Intermittent Past Medical History PAST MEDICAL HISTORY: AFIB, Cancer (colon, In remission), COPD, DM, High Lipids, HTN Past Medical History (Other): SVTs Surgical History: Hernia Repair, Hysterectomy, Pacemaker Surgical History (Other): Cardiac ablation x2, partial colectomy ARTIST MODEL History: No Pertinent ARTIST MODEL History Family History Family History: Family hx of Cancer, Family hx of heart [place] Social History Smoker: Non-Smoker Alcohol: Occasionally Drugs: Denies Drug Use Lives In: Home Constitutional: reports: weakness; denies: chills, diaphoresis, fatigue, fever, malaise, sweats, others EENTM: denies: blurred vision, double vision, ear bleeding, ear discharge, ear drainage, ear pain, ear ringing, eye pain, eye redness, hearing loss, mouth pain, mouth swelling, nasal discharge, nose bleeding, nose congestion, nose pain, photophobia, tearing, throat pain, throat swelling, voice changes, others Respiratory: denies: cough, hemoptysis, orthopnea, SOB at rest, shortness of breath, SOB with excertion, stridor, wheezing, others Cardiovascular: reports: palpitations; denies: chest pain, dizzy spells, diaphoresis, Dyspnea on exertion, edema, irregular heart beat, left arm pain, lightheadedness, PND, syncope, others Gastrointestinal: denies: abdomen distended, abdominal pain, blood streaked bowels, constipated, diarrhea, dysphagia, difficulty swallowing, hematemesis, melena, nausea, poor appetite, poor fluid intake, rectal bleeding, rectal pain, vomiting, others Genitourinary: denies: abnormal vagina bleeding, burning, dyspareunia, dysuria, flank pain, frequency, hematuria, incontinence, pain, , vagina discharge, urgency, others Neurological: reports: dizziness; denies: fainting, headache, left sided numbness, left sided weakness, numbness, paresthesia, pre-existing deficit, right sided numbness, right sided weakness, seizure, speech problems, tingling, tremors, weakness, others Musculoskeletal: denies: back pain, gout, joint pain, joint swelling, muscle pain, muscle stiffness, neck pain, others Integumetry: denies: bruises, change in color, change in hair/nails, dryness, laceration, lesions, lumps, rash, wounds, others Allergic/Immunocompromised: denies: Difficulty Healing, Frequent Infections, Hives, Itching, others Hematologic/Lymphatic: denies: anemia, blood clots, easy bleeding, easy bruising, swollen glands, others Endocrine: denies: excessive hunger, excessive sweating, excessive thirst, excessive urination, flushing, intolerance to cold, intolerance to heat, unexplained weight gain, unexplained weight loss, others Psychiatric: denies: anxiety, bipolar disorder, depression, hopeless, panic disorder, schizophrenia, sleepless, suicidal, others All Other Systems: Reviewed and Negative (Comprehensive systems review obtained and negative except for what is stated in the HPI) Physical Exam General Appearance: No Apparent Distress HEENT: Other (Pupils and face symmetric. Moist mucous membranes.) Neck: Full Range of Motion, Normal Inspection Respiratory: Lungs Clear, No Accessory Muscle Use, No Respiratory Distress, Normal Breath Sounds Cardiovascular: Irregular, No Edema, No JVD, Tachycardia Breast Exam: Deferred Gastrointestinal: Non Tender, Soft Genitalia: Deferred Pelvic: Deferred Rectal: Deferred Extremities: Normal inspection, Normal range of motion, Non-tender, No pedal edema Neurologic: Alert (Oriented x4), Normal Affect, Normal Mood, Other (Ambulatory) Cerebellar Function: NOT DONE Reflexes: NOT DONE Skin: Dry, Normal Color, Warm Lymphatic: NOT DONE Was a procedure done? Was a procedure done?: No EKG EKG : Comments AFib with RVR, rate 135, QRS 122, QTC 477, left axis deviation, possible old anteroseptal infarct, nonspecific T change. Differential Dx Considerations may include: AFib RVR, SVT, multifocal atrial tachycardia, electrolyte imbalance, anemia, SD, CHF, among others X-Ray, Labs, Meds, VS Vital Signs Date Time Temp Pulse Resp B/P (MAP) Pulse Ox O2 Delivery O2 Flow Rate FiO2 8/9/25 00:34 97.3 70 18 144/76 (98) 95 97.3 10/02/24 22:51 80 104/54 10/02/24 22:46 97.9 80 18 104/54 (71) 96 97.9 10/02/24 22:46 80 18 96 Room Air 10/02/24 21:32 135 10/02/24 21:27 97.5 138 18 106/70 97 97.5 Lab Test 10/03/24 00:45 10/03/24 00:18 10/02/24 23:00 Range/Units Urine Color Yellow Yellow Urine Clarity Clear Clear Urine pH 5.0 5.0-9.0 Urine Specific [place] 1.025 1.001-1.035 Urine Protein Negative Negative Urine Ketones Trace H Negative Urine Blood Negative Negative /uL Urine Nitrite 2+ H Negative Urine Bilirubin Negative Negative Urine Urobilinogen Normal Negative mg/dL Urine Leukocyte Esterase Negative Negative /uL Urine Glucose 4+ H Normal mg/dL Troponin I High Sensitivity 13 14 </=34 ng/L White Blood Count 8.8 4.4-10.8 10^3/uL Red Blood Count 5.58 H 4.0-5.20 10^6/uL Hemoglobin 15.4 12.2-16.2 g/dL Hematocrit 45.8 36.0-46.0 % Mean Corpuscular Volume 82.1 80.0-100.0 fL Mean Corpuscular Hemoglobin 27.6 L 28.0-32.0 pg Mean Corpuscular Hemoglobin Concent 33.6 32.0-36.0 g/dL Red Cell Distribution Width 16.9 H 11.8-14.3 % Platelet Count 196 140-450 10^3/uL Mean Platelet Volume 8.7 6.9-10.8 fL Neutrophils (%) (Auto) 63.0 37.0-80.0 % Lymphocytes (%) (Auto) 22.7 10.0-50.0 % Monocytes (%) (Auto) 13.0 H 0.0-12.0 % Eosinophils (%) (Auto) 0.5 0.0-7.0 % Basophils (%) (Auto) 0.8 0.0-2.0 % Neutrophils # (Auto) 5.6 1.6-8.6 10 ^3/uL Lymphocytes # (Auto) 2.0 0.4-5.4 10 ^3/uL Monocytes # (Auto) 1.1 0-1.3 10 ^3/uL Eosinophils # (Auto) 0 0-0.8 10 ^3/uL Basophils # (Auto) 0.1 0-0.2 10 ^3/uL Nucleated Red Blood Cells 0.0 % Sodium Level 138 136-145 mmol/L Potassium Level 4.7 3.5-5.1 mmol/L Chloride Level 104 98-107 mmol/L Carbon Dioxide Level 24 20-31 mmol/L Anion Gap 10 5-15 Blood Urea Nitrogen 20 9-23 mg/dL Creatinine 1.31 H 0.550-1.02 mg/dL Glomerular Filtration Rate Calc 42 >90 mL/min BUN/Creatinine Ratio 15.3 10.0-20.0 Serum Glucose 255 H 74-106 mg/dL Calcium Level 9.9 8.7-10.4 mg/dL B-Type Natriuretic Peptide 74.53 0-100 pg/mL Current Medications Medications (Trade) Dose Ordered Sig/Jeff Route Start Time Stop Time Status Last Admin Sodium Chloride 1,000 ml @ 1,000 mls/hr Q1H ONCE IV 10/02/24 22:30 10/02/24 23:29 DC 10/02/24 22:54 Aspirin 325 mg ONCE ONCE PO 10/02/24 22:30 10/02/24 22:31 DC 10/02/24 22:54 PROCEDURE(s): CXRP - CHEST PORTABLE REASON: ORDER NUMBER(s): [id number], ACCESSION NUMBER(s): [id number] EXAMINATION: XY CHEST PORTABLE CLINICAL HISTORY: COMPARISON: XY CHEST XRAY 1 VIEW on DOS: 09/30/24 FINDINGS: Stable appearing dual lead left-sided implantable cardiac device. No dominant consolidations. The costophrenic angles appear clear. No sizable pleural effusion or pneumothorax identified. Aortic calcifications. The cardiomediastinal silhouette otherwise appears within normal limits given technique. IMPRESSION: No acute cardiopulmonary findings as visualized. X-Ray, Labs, Meds, VS Comment 73-year-old female with a history of AFib, COPD, diabetes, dyslipidemia, pacemaker insertion and cardiac ablation x2 presenting with palpitations and lightheadedness Vitals remarkable for heart rate 138 Exam remarkable for irregularly irregular tachycardic heart rhythm Rhythm strip independently interpreted by me: AFib RVR, rate 122 Chest x-ray unremarkable CBC unremarkable, basic metabolic panel remarkable for creatinine 1.31, BNP and 2 serial troponins unremarkable Patient treated with the following in the ED: 1 L 0.9 normal saline IV bolus, metoprolol 2.5 mg IV On re-evaluation, heart rate is 64 and other vitals were stable. Patient is asymptomatic. Plan is to admit the patient for Cardiology re-evaluation. Time of 1ST Reevaluation: 02:54 Reevaluation 1ST: Unchanged Patient Education/Counseling: Diagnosis, Treatment Family Education/Counseling: No Family Present SEPSIS Sepsis Screen Date sepsis recognized/suspect: Oct 02, 2024 Time Sepsis recognized/suspect: 2142 Recent Procedure: No On Antibiotic Therapy: No Respiratory Rate >20: No Heart Rate >90: Yes Temp<36 C (96.8 F) or >38.3 C: No SBP <90 or MAP <65 mmHG: No New Acute Mental Status Change: No Is the patient on CPAP, BIPAP,: No SEPSIS EXCLUSION NOTE: Sepsis Exclusion Note: Patient presents with SIRS criteria, but the SIRS response is attributed to [ rapid AFib], not a suspected infection. Sepsis bundle is not initiated at this time, due to this reason. Further management will focus on the treatment of the above condition (s). Physician Orders Electrocardigram (10/02/24 22:44) Electrocardigram (10/03/24 00:44) Chest Portable (10/02/24 22:17) Saline Lock (10/02/24 22:30) Vital Signs Date Time Temp Pulse Resp B/P (MAP) Pulse Ox O2 Delivery O2 Flow Rate FiO2 10/03/24 00:34 97.3 70 18 144/76 (98) 95 97.3 10/02/24 22:51 80 104/54 10/02/24 22:46 97.9 80 18 104/54 (71) 96 97.9 10/02/24 22:46 80 18 96 Room Air 10/02/24 21:32 135 10/02/24 21:27 97.5 138 18 106/70 97 97.5 Laboratory Tests Test 10/02/24 23:00 White Blood Count 8.8 10^3/uL (4.4-10.8) Medications Medications Dose Ordered Sig/Jeff Route Start Time Stop Time Status Last Admin Dose Admin Aspirin 325 mg ONCE ONCE PO 10/02/24 22:30 10/02/24 22:31 DC 10/02/24 22:54 Sodium Chloride 1,000 ml @ 1,000 mls/hr Q1H ONCE IV 10/02/24 22:30 10/02/24 23:29 DC 10/02/24 22:54 Departure 1 Departure Time of Disposition: 03:00 Impression: Primary Impression: Atrial fibrillation with RVR Disposition: ADMITTED INPATIENT Admit to: Tele Condition: Guarded Critical Care Note Critical Care Time?: Yes (35 min-critical care time only) Critical care comment: Critical care time including multiple bedside re-evaluations, review of lab and imaging studies, and discussion of the case with the admitting provider. Patient is high risk for hemodynamic decompensation. Stability Stability form required: No Heart Score Heart Score: Heart Score Response (Comments) Value History N/A 0 EKG N/A 0 Age N/A 0 Risk Factors N/A 0 Troponin N/A 0 Total 0 I personally scribed for GUILLERMINA QUINTERO MD ([email or web address]) on 10/03/24 at 02:55. Electronically submitted by Roberto Quintana ([facility]). GUILLERMINA QUINTERO MD Oct 03, 2024 02:55
[2024-10-03] MEDS ORDERED: DOCUSATE SOD 100 MG CAP PO PRN (03:30)
[2024-10-03] MEDS ORDERED: HYDROcodone-ACET 5/325MG TAB PO PRN (03:30)
[2024-10-03] MEDS ORDERED: hydrALAZINE HCL 20 MG/ML VL IV PRN (03:30)
[2024-10-03] MEDS ORDERED: ONDANSETRON HCL 4 MG/2 ML VIAL IV PRN (03:30)
[2024-10-03] MEDS ORDERED: DEXTROSE (50%) 50ML SYRG IV PRN (03:30)
[2024-10-03] MEDS ORDERED: ACETAMINOPHEN 325 MG TAB PO PRN (03:30)
--- NOTE | 2024-10-03 04:14 | DVHHP2 ---
History of Present Illness Reason for Visit: Palpitations History of Present Illness The patient is a 73-year-old female with multiple past medical history including AFib, colon cancer in remission, COPD, SVTs, and hypertension who presented to [facility] ED with complaint of palpitations. Patient reports she started feeling her heart beating rapidly as high as in the 140s, associated with lightheadedness, weakness, getting worse that prompted this visit. Patient was seen and evaluated in the ED, laboratory data shows WBC 6.6, platelets 196, sodium 138, potassium 4.7, BUN 20, creatinine 1.31, glucose 255, room 9.9, BNP 74.53, troponin 14, blood pressure 160/82, heart rate 64, temperature 97.3 F, O2 saturation 96% on room air. Chest x-ray showed no acute cardiopulmonary disease. Please see medication orders section in the computer. On my assessment, patient denies chest pain, no dizziness, no diaphoresis, no shortness a breath, no nausea, no vomiting, no fever, no chills. Patient was admitted for further evaluation and medical management. Past Medical History AFIB, Cancer (colon, In remission), COPD, DM, High Lipids, HTN, SVTs Past Surgical History Hernia Repair, Hysterectomy, Pacemaker, Cardiac ablation x2, partial colectomy Family History Reviewed, noncontributory to the management of this case. Past Social History The patient lives at home, denies smoking, alcohol or illicit drugs abuse. Review of Systems Constitutional: Yes: Weakness; No: Fever, Chills, Sweats, Malaise, Other Eyes: No: Pain, Vision change, Conjunctivae inflammation, Eyelid inflammation, Other, Redness ENT: No: Ear pain, Ear discharge, Nose pain, Nose discharge, Nose congestion, Mouth pain, Mouth swelling, Throat pain, Throat swelling, Other Respiratory: No: Cough, Dry, Shortness of breath, SOB with excertion, Wheezing, Hemoptysis, Pleuritic Pain, Sputum, Wheezing, Other Cardiovascular: Palpitations; No: Chest Pain, Orthopnea, Paroxysmal Noc. Dyspnea, Edema, Lt Headedness, Other Gastrointestinal: No: Nausea, Vomiting, Abdominal Pain, Diarrhea, Constipation, Melena, Hematochezia, Other Genitourinary: No Dysuria, No Frequency, No Incontinence, No Hematuria, No Retention, No Other Musculoskeletal: No: other, neck pain, shoulder pain, arm pain, back pain, hand pain, leg pain, foot pain Skin: No: Rash, Lesions, Jaundice, Bruising, Other Neurological: Other (Dizziness); No: Weakness, Numbness, Incoordination, Change in speech, Confusion, Seizures Allergies: Coded Allergies: No Known Drug Allergy (Verified Allergy, Unknown, 04/26/20) Medications Current Medications Medications Dose Ordered Sig/Jeff Route Start Time Stop Time Status Last Admin Dose Admin Atorvastatin Calcium 20 mg HS PO 10/03/24 22:00 Carvedilol 12.5 mg Q12HR PO 10/03/24 10:00 Benazepril HCl 5 mg DAILY PO 10/03/24 10:00 Hydralazine HCl 10 mg Q6HP PRN IV 10/03/24 03:30 Diagnostic Test (Pha) 1 strip IQ4HR 10/03/24 04:00 Insulin Human Regular IQ4HR SC 10/03/24 04:00 Dextrose 50 ml UD PRN IV 10/03/24 03:30 Sodium Chloride 1,000 ml @ 60 mls/hr [id number] IV 10/03/24 03:30 Acetaminophen/ Hydrocodone Bitart 1 tab Q4HP PRN PO 10/03/24 03:30 Ondansetron HCl 4 mg Q4HP PRN IV 10/03/24 03:30 Docusate Sodium 100 mg BIDPRN PRN PO 10/03/24 03:30 Acetaminophen 650 mg Q6HP PRN PO 10/03/24 03:30 Apixaban 5 mg BID PO 10/03/24 10:00 Exam Vital Signs Vital Signs Date Time Temp Pulse Resp B/P (MAP) Pulse Ox O2 Delivery O2 Flow Rate FiO2 10/03/24 03:05 64 20 160/82 (108) 96 10/03/24 00:34 97.3 97.3 10/02/24 22:46 Room Air General Appearance: Alert, Oriented X3, Cooperative, No acute distress HEENT: Atraumatic, PERRLA, EOMI, Mucous membr. moist/pink Respiratory: Normal air movement Cardiovascular: Regular rate, Normal S1, Normal S2, No murmurs Abdominal: Normal bowel sounds, Soft, No tenderness, No hepatospenomegaly, No masses Extremities: No clubbing, No cyanosis, No edema, Normal pulses, No tenderness/swelling Skin: No rashes, No breakdown, No significant lesion Neuro: Normal speech, Normal tone, Sensation intact, Cranial nerves 3-12 NL, Reflexes 2+, Other (Generalized weakness) Psych/Mental Status: Mental status NL, Mood NL Labs/Xrays Labs Test 10/03/24 00:45 10/03/24 00:18 10/02/24 23:00 Range/Units Urine Color Yellow Yellow Urine Clarity Clear Clear Urine pH 5.0 5.0-9.0 Urine Specific [place] 1.025 1.001-1.035 Urine Protein Negative Negative Urine Ketones Trace H Negative Urine Blood Negative Negative /uL Urine Nitrite 2+ H Negative Urine Bilirubin Negative Negative Urine Urobilinogen Normal Negative mg/dL Urine Leukocyte Esterase Negative Negative /uL Urine Glucose 4+ H Normal mg/dL Troponin I High Sensitivity 13 </=34 ng/L White Blood Count 8.8 4.4-10.8 10^3/uL Red Blood Count 5.58 H 4.0-5.20 10^6/uL Hemoglobin 15.4 12.2-16.2 g/dL Hematocrit 45.8 36.0-46.0 % Mean Corpuscular Volume 82.1 80.0-100.0 fL Mean Corpuscular Hemoglobin 27.6 L 28.0-32.0 pg Mean Corpuscular Hemoglobin Concent 33.6 32.0-36.0 g/dL Red Cell Distribution Width 16.9 H 11.8-14.3 % Platelet Count 196 140-450 10^3/uL Mean Platelet Volume 8.7 6.9-10.8 fL Neutrophils (%) (Auto) 63.0 37.0-80.0 % Lymphocytes (%) (Auto) 22.7 10.0-50.0 % Monocytes (%) (Auto) 13.0 H 0.0-12.0 % Eosinophils (%) (Auto) 0.5 0.0-7.0 % Basophils (%) (Auto) 0.8 0.0-2.0 % Neutrophils # (Auto) 5.6 1.6-8.6 10 ^3/uL Lymphocytes # (Auto) 2.0 0.4-5.4 10 ^3/uL Monocytes # (Auto) 1.1 0-1.3 10 ^3/uL Eosinophils # (Auto) 0 0-0.8 10 ^3/uL Basophils # (Auto) 0.1 0-0.2 10 ^3/uL Nucleated Red Blood Cells 0.0 % Sodium Level 138 136-145 mmol/L Potassium Level 4.7 3.5-5.1 mmol/L Chloride Level 104 98-107 mmol/L Carbon Dioxide Level 24 20-31 mmol/L Anion Gap 10 5-15 Blood Urea Nitrogen 20 9-23 mg/dL Creatinine 1.31 H 0.550-1.02 mg/dL Glomerular Filtration Rate Calc 42 >90 mL/min BUN/Creatinine Ratio 15.3 10.0-20.0 Serum Glucose 255 H 74-106 mg/dL Calcium Level 9.9 8.7-10.4 mg/dL B-Type Natriuretic Peptide 74.53 0-100 pg/mL PATIENT: DENISA CAZARESACCT: [id number] UNIT: [id number] : 1950 LOC: ER ROOM / BED: / AGE / SEX: 73 / F ADM STATUS: REG ER SERVICE 16 ORDERING PHYSICIAN: GUILLERMINA QUINTERO MD PROCEDURE(s): CXRP - CHEST PORTABLE REASON: cp ORDER NUMBER(s): [id number], ACCESSION NUMBER(s): [id number] EXAMINATION: XY CHEST PORTABLE CLINICAL HISTORY: COMPARISON: XY CHEST XRAY 1 VIEW on DOS: 09/30/24 FINDINGS: Stable appearing dual lead left-sided implantable cardiac device. No dominant consolidations. The costophrenic angles appear clear. No sizable pleural effusion or pneumothorax identified. Aortic calcifications. The cardiomediastinal silhouette otherwise appears within normal limits given technique. IMPRESSION: No acute cardiopulmonary findings as visualized. SEPSIS Sepsis Screen Date sepsis recognized/suspect: Oct 02, 2024 Time Sepsis recognized/suspect: 2142 Recent Procedure: No On Antibiotic Therapy: No Respiratory Rate >20: No Heart Rate >90: Yes Temp<36 C (96.8 F) or >38.3 C: No SBP <90 or MAP <65 mmHG: No New Acute Mental Status Change: No Is the patient on CPAP, BIPAP,: No Physician Orders Electrocardigram (10/02/24 22:44) Electrocardigram (10/03/24 00:44) Chest Portable (10/02/24 22:17) Saline Lock (10/02/24 22:30) Complete Blood Count (10/03/24 04:00) Comprehensive Metabolic Panel (10/03/24 04:00) Atorvastatin (Lipitor) (10/03/24 22:00) Carvedilol Tablet (Coreg Tablet) (10/03/24 10:00) Benazepril Hcl Tablet (Lotensin Tablet) (10/03/24 10:00) Hydralazine Injection (Apresoline Inject (10/03/24 03:30) Glucose Blood (Accu-Chek Comfort Curve T (10/03/24 04:00) Insulin R (Human) (Insulin R) (10/03/24 04:00) Dextrose 50% Syringe (10/03/24 03:30) Allergies (10/03/24 03:25) Code Status (10/03/24 03:25) Sodium Chloride 0.9% (10/03/24 03:30) Oxygen Per Hour (10/03/24 03:25) Hydrocodone-Acet 5/325mg Tab ([place] 5/32 (10/03/24 03:30) Ondansetron Hcl (Zofran) (10/03/24 03:30) Docusate Sodium Capsule (Colace Capsule) (10/03/24 03:30) Complete Blood Count (10/04/24 04:00) Comprehensive Metabolic Panel (10/04/24 04:00) Condition: Serious (10/03/24 03:25) Acetaminophen Tablet (Tylenol Tablet) (10/03/24 03:30) Bedrest With Bathroom Privileg (10/03/24 03:25) Maintain Bed Rest (10/03/24 03:25) Sequential Compression Device (10/03/24 ) Apixaban (Eliquis) (10/03/24 10:00) Vital Signs Date Time Temp Pulse Resp B/P (MAP) Pulse Ox O2 Delivery O2 Flow Rate FiO2 10/03/24 03:05 64 20 160/82 (108) 96 10/03/24 00:34 97.3 70 18 144/76 (98) 95 97.3 10/02/24 22:51 80 104/54 10/02/24 22:46 97.9 80 18 104/54 (71) 96 97.9 10/02/24 22:46 80 18 96 Room Air 10/02/24 21:32 135 10/02/24 21:27 97.5 138 18 106/70 97 97.5 Laboratory Tests Test 10/02/24 23:00 White Blood Count 8.8 10^3/uL (4.4-10.8) Medications Medications Dose Ordered Sig/Jeff Route Start Time Stop Time Status Last Admin Dose Admin Aspirin 325 mg ONCE ONCE PO 10/02/24 22:30 10/02/24 22:31 DC 10/02/24 22:54 325 MG Sodium Chloride 1,000 ml @ 1,000 mls/hr Q1H ONCE IV 10/02/24 22:30 10/02/24 23:29 DC 10/02/24 22:54 1,000 MLS/HR Assessment/Plan Assessment/Plan Atrial fibrillation with RVR Generalized weakness Diabetes mellitus with hyperglycemia Plan 1. Admit to telemetry unit 2. Breathing treatment 3. Pain control management 4. Management of fluids and electrolytes 5. Consultation for hospitalist 6. Diagnostic tests chest x-ray 7. DVT prophylaxis-on Eliquis 8. Repeat labs CBC, CMP in a.m. 9. Continue with current medical management 10. Treatment plan discussed with patient and RN. Patient verbalized understanding. Plan discussed with: Patient, Other (RN) My Orders Orders - RHONDA ORTIZ DNP Procedure Category Date Status Time Complete Blood Count LAB 10/03/24 Logged 04:00 Comprehensive LAB 10/03/24 Logged Metabolic Panel 04:00 Atorvastatin (Lipitor) PHA 10/03/24 In Process 22:00 Carvedilol Tablet PHA 10/03/24 In Process (Coreg Tablet) 10:00 Benazepril Hcl Tablet PHA 10/03/24 In Process (Lotensin Tablet) 10:00 Hydralazine Injection PHA 10/03/24 In Process (Apresoline Inject 03:30 Glucose Blood PHA 10/03/24 In Process (Accu-Chek Comfort 04:00 Insulin R (Human) PHA 10/03/24 In Process (Insulin R) 04:00 Dextrose 50% Syringe PHA 10/03/24 In Process 03:30 Allergies SONY 10/03/24 In Process 03:25 Code Status CODE 10/03/24 Transmitted 03:25 Sodium Chloride 0.9% PHA 10/03/24 In Process 03:30 Oxygen Per Hour RT 10/03/24 Transmitted 03:25 Hydrocodone-Acet PHA 10/03/24 In Process 5/325mg Tab ([place] 03:30 Ondansetron Hcl PHA 10/03/24 In Process (Zofran) 03:30 Docusate Sodium PHA 10/03/24 In Process Capsule (Colace 03:30 Complete Blood Count LAB 10/04/24 Verified 04:00 Comprehensive LAB 10/04/24 Verified Metabolic Panel 04:00 Condition: Serious SONY 10/03/24 In Process 03:25 Acetaminophen Tablet PHA 10/03/24 In Process (Tylenol Tablet) 03:30 Bedrest With Bathroom SONY 10/03/24 In Process Privileg 03:25 Maintain Bed Rest SONY 10/03/24 In Process 03:25 Sequential SONY 10/03/24 In Process Compression Device Apixaban (Eliquis) PHA 10/03/24 In Process 10:00 Problem List: (1) Atrial fibrillation with RVR (2) Generalized weakness (3) Diabetes mellitus with hyperglycemia Date of Service: Oct 03, 2024 Billing Provider: RHONDA ORTIZ DNP Common Visit Codes: [id number] INP/OBS CARE (HIGH) RHONDA ORTIZ DNP Oct 03, 2024 04:14
[2024-10-03] MEDS ORDERED: MORPHINE SULFATE INJ 2 MG/ml SYRG IV PRN (04:15)
[2024-10-03] MEDS ORDERED: NITROGLYCERIN 0.4 MG SL TAB SL PRN (04:15)
[2024-10-03] MEDS: SODIUM CHLORIDE 0.9% 1,000 ML IV SCH ×2 (06:09→16:26)
[2024-10-03] MEDS: ACCU-CHEK COMFORT CURVE STRIP VI SCH (06:20)
[2024-10-03] MEDS: InsuLIN REG 1unit/0.01ml Soln (100units/ml) SC SCH (06:22)
[2024-10-03 09:19] LABS: Hematocrit 46.3 % (36.0-46.0); Hemoglobin 15.1 g/dL (12.2-16.2); Mean Corpuscular Hemoglobin 27.1 pg (28.0-32.0); Mean Corpuscular Volume 83.0 fL (80.0-100.0); Nucleated Red Blood Cells % 0.1 %
[2024-10-03 09:34] LABS: Alanine Aminotransferase 14 U/L (7-40); Alkaline Phosphatase 101 U/L (46-116); Anion Gap 8 (5-15); BUN/Creatinine Ratio 15.8 (10.0-20.0); Blood Urea Nitrogen 16 mg/dL (9-23); Calcium 9.6 mg/dL (8.7-10.4); Carbon Dioxide 25 mmol/L (20-31); Chloride 106 mmol/L (98-107); Potassium 4.3 mmol/L (3.5-5.1); Sodium 139 mmol/L (136-145); Total Protein 7.1 g/dL (5.7-8.2)
[2024-10-03 09:35] LABS: Albumin 4.8 g/dL (3.2-4.8); Bilirubin, Total 1.1 mg/dL (0.2-1.0); Glucose 130 mg/dL (74-106)
[2024-10-03] MEDS: BENAZEPRIL HCL 10 MG TAB PO SCH (10:00)
[2024-10-03] MEDS: APIXABAN 5 MG TAB PO SCH (11:18)
[2024-10-03] MEDS: CARVEDILOL 12.5 MG TAB PO SCH (11:19)
[2024-10-03 11:23] VITALS: TEMP 97.5
[2024-10-03 16:15] VITALS: PULSE 79; RESP 15; O2SAT 93
[2024-10-03] MEDS: cefTRIAXone 1GM/50ML D5W 50 ML IV ONE (16:26)
--- NOTE | 2024-10-03 17:36 | DVHDS2 ---
Discharge Summary Date of Admission Oct 03, 2024 at 04:13 Date of Discharge: Oct 03, 2024 Admitting Diagnosis Palpitation Labs/Diagnostic Data: Laboratory Results Test 10/03/24 16:16 10/03/24 08:59 10/03/24 00:45 10/03/24 00:18 POC Glucose 108 mg/dl (70-106) White Blood Count 6.7 10^3/uL (4.4-10.8) Red Blood Count 5.57 10^6/uL (4.0-5.20) Hemoglobin 15.1 g/dL (12.2-16.2) Hematocrit 46.3 % (36.0-46.0) Mean Corpuscular Volume 83.0 fL (80.0-100.0) Mean Corpuscular Hemoglobin 27.1 pg (28.0-32.0) Mean Corpuscular Hemoglobin Concent 32.7 g/dL (32.0-36.0) Red Cell Distribution Width 16.7 % (11.8-14.3) Platelet Count 195 10^3/uL (140-450) Mean Platelet Volume 8.8 fL (6.9-10.8) Neutrophils (%) (Auto) 58.9 % (37.0-80.0) Lymphocytes (%) (Auto) 27.2 % (10.0-50.0) Monocytes (%) (Auto) 12.4 % (0.0-12.0) Eosinophils (%) (Auto) 1.0 % (0.0-7.0) Basophils (%) (Auto) 0.5 % (0.0-2.0) Neutrophils # (Auto) 4.0 10 ^3/uL (1.6-8.6) Lymphocytes # (Auto) 1.8 10 ^3/uL (0.4-5.4) Monocytes # (Auto) 0.8 10 ^3/uL (0-1.3) Eosinophils # (Auto) 0.1 10 ^3/uL (0-0.8) Basophils # (Auto) 0 10 ^3/uL (0-0.2) Nucleated Red Blood Cells 0.1 % Sodium Level 139 mmol/L (136-145) Potassium Level 4.3 mmol/L (3.5-5.1) Chloride Level 106 mmol/L (98-107) Carbon Dioxide Level 25 mmol/L (20-31) Anion Gap 8 (5-15) Blood Urea Nitrogen 16 mg/dL (9-23) Creatinine 1.01 mg/dL (0.550-1.02) Glomerular Filtration Rate Calc 58 mL/min (>90) BUN/Creatinine Ratio 15.8 (10.0-20.0) Serum Glucose 130 mg/dL (74-106) Calcium Level 9.6 mg/dL (8.7-10.4) Total Bilirubin 1.1 mg/dL (0.2-1.0) Aspartate Amino Transferase (AST) 22 U/L (13-40) Alanine Aminotransferase (ALT) 14 U/L (7-40) Alkaline Phosphatase 101 U/L (46-116) Total Protein 7.1 g/dL (5.7-8.2) Albumin 4.8 g/dL (3.2-4.8) Urine Color Yellow (Yellow) Urine Clarity Clear (Clear) Urine pH 5.0 (5.0-9.0) Urine Specific [place] 1.025 (1.001-1.035) Urine Protein Negative (Negative) Urine Ketones Trace (Negative) Urine Blood Negative /uL (Negative) Urine Nitrite 2+ (Negative) Urine Bilirubin Negative (Negative) Urine Urobilinogen Normal mg/dL (Negative) Urine Leukocyte Esterase Negative /uL (Negative) Urine Glucose 4+ mg/dL (Normal) Troponin I High Sensitivity 13 ng/L (</=34) Test 10/02/24 23:00 B-Type Natriuretic Peptide 74.53 pg/mL (0-100) Other Laboratory Tests 10/03/24 08:59 Brief Hx & Hospital Course: 73-year-old lady admitted to the hospital from the emergency room because of palpitation. Patient was discharged two days ago from the hospital with AFib/SVT with RVR. The patient is feeling much better no and no more palpitation and she wants to go home as she was still waiting in the emergency room overflow for a bed on the floor. She was found to have UTI. She was given Rocephin. We will continue at home with cephalexin Condition at Discharge: Good Final Diagnosis/Problems List AFib with RVR SVT Hypertension Diabetes UTI Chronic kidney disease stage IIIA Acute kidney injury atop chronic kidney disease COPD History of colon cancer in remission Discharge Disposition: Home Discharge Instruct/Medications Diet: Consistent carbohydrate Activity: No Restrictions, As Tolerated Follow Up/Referral: With PCP within one week With Cardiology/Dr. Mejia within one week as well Medications: Cephalexin 500 mg 3 times a day for five days Resume previous home medication. Patient has the flecainide already. Scheduled Apixaban Base (Eliquis), 5 MG PO BID, (Reported) Atorvastatin Calcium (Atorvastatin Calcium), 1 TAB PO DAILY, (Reported) Benazepril Hcl (Benazepril Hcl), 2.5 MG PO DAILY, (Reported) Carvedilol (Carvedilol), 1 TAB PO TID Dulaglutide (Trulicity), 1.5 MG SC QWEEKLY, (Reported) Empagliflozin (Jardiance), 25 MG PO DAILY, (Reported) Flecainide Acetate (Flecainide Acetate), 150 MG PO BID Gabapentin (Gabapentin), 100 MG PO TID, (Reported) Insulin Glargine (Toujeo Solostar), 25 UNIT SC HS, (Reported) Insulin Lispro (Human) (Humalog), 6 UNIT SC AC, (Reported) Magnesium Oxide (Magnesium Oxide), 1 TAB PO TID, (Reported) Metformin Hydrochloride (Metformin Hcl), 1,000 MG PO IBID, (Reported) Scheduled PRN Diclofenac Sodium (Topical) (Voltaren Arthritis Pain), 2 GRAMS TOP Q6HP PRN for PAIN SCALE 1 THRU 6, (Reported) Discontinued Medications Flecainide Acetate (Flecainide Acetate), 1 TAB PO BID 35 Discharge Statement: "Patient was advised to return to the ER or call 911 if any headaches, dizziness, shortness of breath, chest pain, abdominal pain, bleeding, fevers, or worsening of medical condition. Patient was counseled about treatment plan, medications, possible side effects, patientverbalized understanding. All questions were answered to the best of my ability. This discharge took greater then 30 minutes in planning, reviewing documentation, counseling the patient, and discussing with other team members." ASSESSMENT ASSESSMENT Assessment Date of Service: Oct 03, 2024 Billing Provider: SERGIO EVANS MD Common Visit Codes: 35019-USR/OBS DISCH DAY >30min SERGIO EVANS MD Oct 03, 2024 17:36
[2024-10-03] MEDS ORDERED: CEPH500C PO (17:37)
[2024-10-03 18:31] VITALS: BP 166/80; PULSE 79
[2024-10-03 18:58] VITALS: BP 156/81; PULSE 71; RESP 13; O2SAT 94
[2024-10-03] MEDS ORDERED: ATORVASTATIN 20 MG TAB PO SCH (22:00)
[2024-10-04] MEDS ORDERED: cefTRIAXone 1GM/50ML D5W 50 ML IV SCH (09:00)
--- NOTE | 2024-10-05 14:30 | ECG ---
[facility] Test Date: 2024-09-30 Test Time: 18:08:37 Pat Name: DENISA CAZARES Department: Room: [address] [place] [address] A Gender: F First Helper: RAMAKRISHNA : 1950 Requested By: GUILLERMINA PACK Order Number: [id number] Reading MD: Donovan Jon Measurements Intervals Dania Rate: 79 P: 50 VT: 217 QRS: 18 QRSD: 89 T: 253 QT: 370 QTc: 425 Interpretive Statements Sinus rhythm Borderline prolonged VT interval Anterior infarct, old Nonspecific T abnormalities, lateral leads Electronically Signed On 10-05-2024 17:58:29 PDT by Donovan Jon Please click the below link to view image of tracing.
== END 2024-10-03 19:00 | disposition home or self-care (01) | DRG 308 ==
LOC: ER 21:25 → OVERFLOW 10-03 04:13
PROVIDERS: ADMIT Nurse Practitioner Family; ATTEND Nurse Practitioner Family
DX: I48.91 Unspecified atrial fibrillation (principal); N17.0 Acute kidney failure with tubular necrosis; N39.0 Urinary tract infection, site not specified; I47.10 Supraventricular tachycardia, unspecified; E11.65 Type 2 diabetes mellitus with hyperglycemia; N18.31 Chronic kidney disease, stage 3a; J44.9 Chronic obstructive pulmonary disease, unspecified; I12.9 Hypertensive chronic kidney disease with stage 1 through stage 4 chronic kidney disease, or unspecified chronic kidney disease; E11.22 Type 2 diabetes mellitus with diabetic chronic kidney disease; E78.5 Hyperlipidemia, unspecified; Z79.4 Long term (current) use of insulin; Z79.01 Long term (current) use of anticoagulants; Z79.899 Other long term (current) drug therapy; Z95.0 Presence of cardiac pacemaker; Z90.49 Acquired absence of other specified parts of digestive tract; Z85.038 Personal history of other malignant neoplasm of large intestine; Z90.710 Acquired absence of both cervix and uterus
CPT/HCPCS: 36415; 71045; 80048; 80053; 81003; 82962; 83880; 84484; 85025; 87081; 87086; 93005; 96361; 96365; 99291; G0378; J1815